=== PATIENT | female | born 1965 | race Caucasian/White ===

== ENCOUNTER → 2016-08-16 | Outpatient (CLI) | payer BC ==
--- NOTE | 2016-08-16 15:56 | XR ---
EXAMINATION TYPE: XR shoulder complete LT DATE OF EXAM: 08/16/2016 3:52 PM CLINICAL HISTORY: pain COMPARISON: NONE TECHNIQUE: Three views of the left shoulder are obtained. FINDINGS: There is no acute fracture/dislocation evident. The acromioclavicular and glenohumeral sophie int spaces appear within normal limits. The visualized ribs are intact and unremarkable. IMPRESSION: 1. There is no acute fracture or dislocation. ICD 10 NO FRACTURE, INITIAL EVALUATION
--- NOTE | 2016-08-16 15:56 | XR ---
EXAMINATION TYPE: XR elbow complete LT DATE OF EXAM: 08/16/2016 3:52 PM CLINICAL HISTORY: pain TECHNIQUE: Frontal, lateral and oblique images of the left elbow are obtained. COMPARISON: None. FINDINGS: There is no acute fracture/dislocation evident of the elbow. No abnormal fat pad signs ar e seen. The overlying soft tissue appears unremarkable. IMPRESSION: There is no acute fracture or dislocation of the elbow. ICD 10 NO FRACTURE, INITIAL EVALUATION
--- NOTE | 2016-08-16 15:57 | XR ---
EXAMINATION TYPE: XR wrist complete LT DATE OF EXAM: 08/16/2016 3:52 PM CLINICAL HISTORY: pain TECHNIQUE: Frontal, lateral and oblique images of the left wrist are obtained. COMPARISON: None. FINDINGS: There is no acute fracture/dislocation evident. The joint spaces appear within normal gale its. The overlying soft tissue appears unremarkable. IMPRESSION: There is no acute fracture or dislocation seen. ICD 10 NO FRACTURE, INITIAL EVALUATION
--- NOTE | 2016-08-16 15:57 | XR ---
EXAMINATION TYPE: XR hand complete LT DATE OF EXAM: 08/16/2016 3:42 PM CLINICAL HISTORY: pain TECHNIQUE: Frontal, lateral and oblique images of the left hand are obtained. COMPARISON: None. FINDINGS: There is no acute fracture/dislocation evident. The joint spaces appear within normal limi ts. The overlying soft tissue appears unremarkable. IMPRESSION: There is no acute fracture or dislocation. ICD 10 NO FRACTURE, INITIAL EVALUATION
--- NOTE | 2016-08-16 16:00 | XR ---
EXAMINATION TYPE: XR forearm LT DATE OF EXAM: 08/16/2016 3:52 PM CLINICAL HISTORY: pain TECHNIQUE: Frontal and lateral images of the left forearm are obtained. COMPARISON: None. FINDINGS: There is no acute fracture/dislocation evident. The joint spaces appear within normal limi ts. The overlying soft tissue appears unremarkable. IMPRESSION: There is no acute fracture or dislocation. ICD 10 NO FRACTURE, INITIAL EVALUATION
== END | disposition home or self-care (01) ==
LOC: RADXRMAIN 14:35
PROVIDERS: ATTEND Nurse Practitioner Family
DX: M79.642 Pain in left hand (principal); M25.532 Pain in left wrist; M25.512 Pain in left shoulder

== ENCOUNTER → 2017-04-04 | Outpatient (CLI) | payer BC ==
--- NOTE | 2017-04-04 09:35 | ECHOF ---
Referral Reason:R07.89 Chest pain MEASUREMENTS -------- HEIGHT: 170.2 cm WEIGHT: 86.6 kg BP: RVIDd: 3.2 cm (< 3.3) IVSd: 0.9 cm (0.6 - 1.1) LVIDd: 3.9 cm (3.9 - 5.3) LVPWd: 0.9 cm (0.6 - 1.1) IVSs: 1.2 cm LVIDs: 3.4 cm LVPWs: 1.2 cm LAESV Index (A-L): 26.06 ml/m Ao Diam: 3.2 cm (2.0 - 3.7) AV Cusp: 1.5 cm (1.5 - 2.6) LA Diam: 3.8 cm (2.7 - 3.8) MV EXCURSION: 23.254 mm (> 18.000) MV EF SLOPE: 107 mm/s (70 - 150) EPSS: 0.9 cm MV E Darrick: 0.59 m/s MV DecT: 269 ms MV A Darrick: 0.63 m/s MV E/A Ratio: 0.93 RAP: 5.00 mmHg RVSP: 22.95 mmHg FINDINGS -------- There is mild concentric left ventricular hypertrophy. Overall left ventricular systolic function is normal with, an EF between 55 - 60 %. The right ventricle is normal in size. Normal LA size by volume 22+/-6 ml/m2. The right atrial size is normal. The aortic valve is trileaflet, and appears structurally normal. No aortic stenosis or regurgitation. Mild mitral regurgitation is present. Mild tricuspid regurgitation present. There is no evidence of pulmonary hypertension. The right ventricular systolic pressure, as measured by Doppler, is 22.95mmHg. There is no pulmonic regurgitation present. The aortic root size is normal. There is no pericardial effusion. CONCLUSIONS -------- 1. There is mild concentric left ventricular hypertrophy. 2. Overall left ventricular systolic function is normal with, an EF between 55 - 60 %. 3. The aortic valve is trileaflet, and appears structurally normal. No aortic stenosis or regurgitation. 4. Mild mitral regurgitation is present. 5. There is no evidence of pulmonary hypertension. 6. The right ventricular systolic pressure, as measured by Doppler, is 22.95mmHg. 7. There is no pulmonic regurgitation present. 8. The aortic root size is normal. 9. There is no pericardial effusion. MORNING NEWS ANCHOR: Nohemy Michael RDCS
--- NOTE | 2017-04-04 11:02 | NM ---
EXAMINATION TYPE: NM stress cardiolite complete DATE OF EXAM: 04/04/2017 COMPARISON: NONE HISTORY: Chest pain TECHNIQUE: After the intravenous administration of 10.92 mCi Tc 99m Sestamibi - Rest images obtained 57 minutes post injection. The patient exercised using a QUEENIE protocol and 1 minute prior to peak exercise was injected with 27 mCi Tc 99m Sestamibi - Stress images obtained 30 minutes post injectio n. FINDINGS: Targeted heart rate was achieved during performance of the study. Review of stress and rest SPECT shital ges demonstrates no distinct perfusion abnormality. Gated analysis shows normal wall motion with an estimated left ventricular ejection fraction of 63 %. IMPRESSION: No scintigraphic evidence for reversible ischemia, consider echocardiographic correlation for ejectio n fraction
--- NOTE | 2017-04-05 12:01 | EST ---
DATE OF SERVICE: 04/04/2017 TYPE OF REPORT: Stress Cardiolite INDICATION: Chest pain. BASELINE HEART RATE: 65 BASELINE BLOOD PRESSURE: 108/76 MAXIMUM HEART RATE: 143 MAXIMUM BLOOD PRESSURE: 166/72 85% MPHR: 100% MPHR: METS: 7.3 MAX STAGE REACHED: IV TOTAL EXERCISE TIME: 11:05 EKG revealed normal sinus rhythm without significant ST-T changes. Patient walked on standard Diego protocol for 11 minutes 5 seconds, achieved a maximal heart rate of 13 beats per minute which is 85% of predicted maximal. She developed fatigue and shortness of breath, but did not have any angina or arrhythmia. EKG did not reveal any ST segment changes to indicate ischemia. By EKG criteria, this is a negative stress test with excellent exercise capacity. The nuclear scan results, which are more pertinent, will be reported by the radiologist. FINAL IMPRESSION: 1. Excellent exercise capacity with a negative stress test by EKG criteria. 2. The nuclear scan results, which are more pertinent, will be reported by the radiologist. HARSHIL
== END ==
LOC: RADNMMAIN 07:51
PROVIDERS: ATTEND Family Medicine
DX: I34.0 Nonrheumatic mitral (valve) insufficiency (principal)
CPT/HCPCS: 93017; 93306; 78452; A9500

== ENCOUNTER → 2017-04-27 | Outpatient (CLI) | payer BC ==
--- NOTE | 2017-04-27 11:37 | US ---
EXAMINATION TYPE: US thyroid st tissue head/neck DATE OF EXAM: 04/27/2017 COMPARISON: 12/02/2013 CLINICAL HISTORY: 51-year-old female with Goiter E04.9. TECHNIQUE: Multiple sonographic images of the thyroid gland are obtained. FINDINGS: GLAND SIZE: Right Lobe: 5.6 x 1.7 x 1.8 cm Overall Parenchyma: homogenous Left Lobe: 4.4 x 1.2 x 0.9 cm Overall Parenchyma: homogeneous Isthmus Thickness: 0.2 cm NODULES RIGHT: # of nodules measured on right: 1 1. 0.3 X 0.3 x 0.1 cm hypoechoic solid nodule at the mid pole with well-defined margins. This nodu le is wider than tall and shows no intranodular vascularity. This was not seen previously. LEFT: # of nodules measured on left: 0 ISTHMUS: # of nodules measured in the isthmus: 0 Bilateral neck scanned; normal appearing lymph nodes imaged at bilateral upper neck. IMPRESSION: Asymmetrically enlarged right lobe with a tiny nonspecific 3 mm solid nodule.
== END | disposition home or self-care (01) ==
LOC: RADUSWWP 08:54
PROVIDERS: ATTEND Family Medicine
DX: E04.9 Nontoxic goiter, unspecified (principal); Z88.1 Allergy status to other antibiotic agents; Z88.2 Allergy status to sulfonamides
CPT/HCPCS: 76536

== ENCOUNTER → 2017-09-21 | Outpatient (CLI) | payer BC ==
[2017-09-21 14:48] LABS: Basophils # (A) 0.1 k/uL (0-0.2); Basophils % (A) 1 %; Eosinophils # (A) 0.6 k/uL (0-0.7); Eosinophils % (A) 9 %; HCT 43.2 % (34.0-46.0); HGB 13.2 gm/dL (11.4-16.0); Lymphocytes # (A) 2.4 k/uL (1.0-4.8); Lymphocytes % (A) 33 %; MCH 28.6 pg (25.0-35.0); MCHC 30.5 g/dL (31.0-37.0); MCV 93.7 fL (80.0-100.0); Monocytes # (A) 0.6 k/uL (0-1.0); Monocytes % (A) 8 %; Neutrophils # (A) 3.4 k/uL (1.3-7.7); Neutrophils % (A) 47 %; Platelet Count 293 k/uL (150-450); RBC 4.61 m/uL (3.80-5.40); RDW 13.4 % (11.5-15.5); WBC 7.3 k/uL (3.8-10.6)
[2017-09-21 14:51] LABS: Potassium 3.8 mmol/L (3.5-5.1)
== END | disposition home or self-care (01) ==
LOC: LABPAT 14:21
PROVIDERS: ATTEND Orthopaedic Surgery
DX: M65.4 Radial styloid tenosynovitis [de Quervain] (principal)
CPT/HCPCS: 36415; 80051; 85025

== ENCOUNTER 2017-10-12 10:30 | Day surgery (SDC) | payer BC ==
[2017-10-09 12:00] VITALS: BMI 29.0
--- NOTE | 2017-10-11 20:26 | HP ---
HISTORY AND PHYSICAL DATE OF SURGERY: 10/12/2017 Iram Hardy is a 52-year-old patient seen with symptomatic right wrist de Quervain tendinitis. Treatment options were discussed. She elected to proceed with release, first dorsal compartment, right wrist. Consent regarding procedure was obtained. PAST MEDICAL HISTORY: Asthma. PAST SURGICAL HISTORY: 1. Appendectomy. 2. Cholecystectomy. 3. Hysterectomy. DAILY MEDICATIONS: Ibuprofen. ALLERGIES: 1. KEFLEX. 2. SULFA. SOCIAL HISTORY: Patient denies tobacco use. PHYSICAL EVALUATION OF THE RIGHT WRIST: She is tender along the first dorsal compartment. She has a positive Padma's test. She has good perfusion and sensation distally. Carpal Tinel's and carpal compression are both negative. RADIOGRAPHS: Radiographs of the right wrist reveal mild osteoarthritis. IMPRESSION: Right wrist de Quervain tendinitis. PLAN: Release first dorsal compartment, right wrist. MMODL / IJN: [id number] /
[~2017-10-12 10:30] MED LIST: CLINDAMYCIN 600 MG in DEXTROSE 5% IN WATER 50 ML IVPB ONE; DEXAMETHASONE SOD PHOSPHATE 10 MG/ML 1 ML VIAL IV ONE; MORPHINE SULFATE 4 MG/ML SYRINGE IV PRN; ONDANSETRON 4 MG/2 ML VIAL IVP ONE
[2017-10-12 11:28] VITALS: RESP 16; TEMP 97.9
[2017-10-12] MEDS ORDERED: LIDOCAINE 1% 20 ML VIAL (10MG/ML) FOR IV START INTRADERMA ONE (11:33)
[2017-10-12] MEDS: LACTATED RINGERS 1,000 ML IV SCH ×2 (11:33→12:22)
[2017-10-12 11:41] LABS: Glucose,Whole Blood 84 mg/dL (75-99)
[2017-10-12] MEDS ORDERED: MIDAZOLAM 2 MG/2 ML VIAL ONE (12:32)
[2017-10-12] MEDS ORDERED: PROPOFOL 10 MG/ML 20 ML VIAL IV ONE (12:32)
[2017-10-12] MEDS ORDERED: LIDOCAINE 1% INJ 10MG/ML (20 ML MDV) ONE (12:32)
[2017-10-12] MEDS ORDERED: fentaNYL (PF) 50 MCG/ML 2 ML AMP ONE (12:32)
[2017-10-12] MEDS ORDERED: BUPIVACAINE (PF) 0.25% 30 ML VIAL SQ ONE ×2 (12:44)
--- NOTE | 2017-10-12 13:03 | P.OP ---
Date of Procedure: 10/12/17 Preoperative Diagnosis: Right wrist De Quervain's tendinitis Postoperative Diagnosis: Same Procedure(s) Performed: Release first dorsal compartment right wrist Anesthesia: MAC, local Surgeon: Raymond Carrera Estimated Blood Loss (ml): 0 Pathology: none sent Condition: stable Disposition: PACU Indications for Procedure: 52-year-old patient seen with symptomatic right wrist De Quervain's tendinitis. After treatment options were discussed she elected to proceed with release first dorsal compartment right wrist. Operative Findings: See description of procedure Description of Procedure: Patient was taken to the operative suite. The patient received preoperative IV antibiotics. The patient underwent IV sedation by the department of anesthesia. A well-padded tourniquet was placed right upper extremity approximately. The right upper extremity was prepped and draped in the normal sterile orthopedic fashion. The proposed incision site was infiltrated with 8 mL quarter percent plain Marcaine. When sufficient local analgesia was noted the extremity was elevated and tourniquet insufflated to 250. A male [place] incision measuring approximately 2 cm over the area first was compartment. We dissected down to the first dorsal compartment making sure protect neurovascular structures. The first was compartment was identified and a release was performed. We complete release of the first was compartment noted with good excursion of the tendons and no evidence of impingement at this point. There was good hemostasis. The skin margins were repaired with nylon suture. I applied sterile dressings followed by loose web bone Lucien bandage. The tourniquet was released with immediate capillary refill of all digits noted. The patient was then transferred to recovery in stable condition having tolerated procedure well.
[2017-10-12] MEDS ORDERED: HYDROcodone/APAP 5-325MG 1 EACH TAB PO ONE (13:45)
[2017-10-12 13:57] VITALS: BP 110/69; PULSE 65
== END 2017-10-12 14:33 | disposition home or self-care (01) ==
LOC: OR 10:30
PROVIDERS: ATTEND Orthopaedic Surgery
DX: M65.4 Radial styloid tenosynovitis [de Quervain] (principal); J45.909 Unspecified asthma, uncomplicated; Z88.1 Allergy status to other antibiotic agents; Z88.2 Allergy status to sulfonamides; Z79.1 Long term (current) use of non-steroidal anti-inflammatories (NSAID); Z90.49 Acquired absence of other specified parts of digestive tract; Z90.710 Acquired absence of both cervix and uterus; Z87.891 Personal history of nicotine dependence; Z79.891 Long term (current) use of opiate analgesic; Z79.899 Other long term (current) drug therapy
CPT/HCPCS: 25000; J2250; J1100; J2405; J2001; J3010; J2704

== ENCOUNTER 2018-03-13 18:02 | Emergency (ER) | payer BC ==
--- NOTE | 2018-03-13 18:14 | ED ---
General Adult HPI - General Chief complaint: Chest Pain Stated complaint: Chest pain Time Seen by Provider: 03/13/18 18:11 Source: patient, RN notes reviewed, old records reviewed Mode of arrival: ambulatory Limitations: no limitations - History of Present Illness Initial comments: This is a 52-year-old female the ER for evasive chest pain. Left-sided chest pain heaviness and tightness. Anterior chest. Patient has history of high cholesterol. No significant medical history of heart disease. No recent travel history no sick contacts. Patient had similar symptoms a while back he was given a stress test. She denies fever no cough or congestion. Currently without shortness of breath, occasional diaphoresis - Related Data Home Medications Medication Instructions Recorded Confirmed Ibuprofen [Motrin] 800 mg PO DAILY PRN 10/09/17 03/13/18 Aspirin EC [Ecotrin Low Dose] 81 mg PO DAILY 03/13/18 03/13/18 Atorvastatin [Lipitor] 10 mg PO DAILY 03/13/18 03/13/18 FLUoxetine HCL [PROzac] 10 mg PO DAILY 03/13/18 03/13/18 Fexofenadine HCl [Emily Allergy] 60 mg PO DAILY 03/13/18 03/13/18 Montelukast Chew [Singulair Chew] 4 mg PO DAILY 03/13/18 03/13/18 Allergies Allergy/AdvReac Type Severity Reaction Status Date / Time cephalexin monohydrate AdvReac Swelling Verified 03/13/18 18:26 [From Keflex] codeine AdvReac Itching Verified 03/13/18 18:26 erythromycin base AdvReac Swelling Verified 03/13/18 18:26 [Erythromycin Base] Sulfa (Sulfonamide AdvReac Swelling Verified 03/13/18 18:26 Antibiotics) Review of Systems ROS Statement: Those systems with pertinent positive or pertinent negative responses have been documented in the HPI. ROS Other: All systems not noted in ROS Statement are negative. Past Medical History Past Medical History: Hyperlipidemia Additional Past Medical History / Comment(s): enlarged L ventricle History of Any Multi-Drug Resistant Organisms: None Reported Past Surgical History: Adenoidectomy, Cholecystectomy, Hysterectomy Past Psychological History: Anxiety, Depression Smoking Status: Former smoker Past Alcohol Use History: None Reported Past Drug Use History: None Reported General Exam Limitations: no limitations General appearance: alert, in no apparent distress, anxious Head exam: Present: atraumatic, normocephalic, normal inspection Eye exam: Present: normal appearance, PERRL, EOMI. Absent: scleral icterus, conjunctival injection, periorbital swelling ENT exam: Present: normal exam, mucous membranes moist Neck exam: Present: normal inspection. Absent: tenderness, meningismus, lymphadenopathy Respiratory exam: Present: normal lung sounds bilaterally. Absent: respiratory distress, wheezes, rales, rhonchi, stridor Cardiovascular Exam: Present: regular rate, normal rhythm, normal heart sounds. Absent: systolic murmur, diastolic murmur, rubs, gallop, clicks GI/Abdominal exam: Present: soft, normal bowel sounds. Absent: distended, tenderness, guarding, rebound, rigid Extremities exam: Present: normal inspection, full ROM, normal capillary refill. Absent: tenderness, pedal edema, joint swelling, calf tenderness Back exam: Present: normal inspection Neurological exam: Present: alert, oriented X3, CN II-XII intact Psychiatric exam: Present: normal affect, normal mood Skin exam: Present: warm, dry, intact, normal color. Absent: rash Course Vital Signs 03/13/18 03/13/18 03/13/18 18:05 18:33 18:45 Temperature 98.2 F Pulse Rate 62 65 Pulse Rate [ 66 [employer] Supervisor ] Respiratory 16 18 Rate Blood Pressure 150/82 156/95 O2 Sat by Pulse 98 99 Oximetry 03/13/18 19:05 Temperature 98.7 F Pulse Rate 64 Pulse Rate [ [employer] Supervisor ] Respiratory 18 Rate Blood Pressure 130/72 O2 Sat by Pulse 98 Oximetry - Reevaluation(s) Reevaluation #1: 03/13/18 19:59 Medical record is reviewed including prior stress test Reevaluation #2: 03/13/18 19:59 Patient is now without chest pain currently EKG Findings - EKG Comments: EKG Findings:: EKG shows sinus rhythm rate of 62, FL 142, QRS 82, QTc 456 Medical Decision Making - Medical Decision Making 52 female the ER with low cardiac risk coming in for chest tightness. EKG and troponin are negative. Patient has negative stress test in the past year. Patient will follow-up with primary care doctor. This week with Dr. Mann who is very aware of patient will see her in the office - Lab Data Result diagrams: 03/13/18 18:56 03/13/18 18:56 Lab Results 03/13/18 03/13/18 03/13/18 Range/Units 18:56 18:56 18:56 WBC 7.2 (3.8-10.6) k/uL RBC 5.05 (3.80-5.40) m/uL Hgb 14.1 (11.4-16.0) gm/dL Hct 43.2 (34.0-46.0) % MCV 85.5 (80.0-100.0) fL MCH 27.9 (25.0-35.0) pg MCHC 32.6 (31.0-37.0) g/dL RDW 13.6 (11.5-15.5) % Plt Count 314 (150-450) k/uL Neutrophils % 53 % Lymphocytes % 32 % Monocytes % 6 % Eosinophils % 5 % Basophils % 1 % Neutrophils # 3.8 (1.3-7.7) k/uL Lymphocytes # 2.3 (1.0-4.8) k/uL Monocytes # 0.4 (0-1.0) k/uL Eosinophils # 0.4 (0-0.7) k/uL Basophils # 0.1 (0-0.2) k/uL PT (9.0-12.0) sec INR (<1.2) APTT (22.0-30.0) sec Sodium 140 (137-145) mmol/L Potassium 4.1 (3.5-5.1) mmol/L Chloride 110 H (98-107) mmol/L Carbon Dioxide 22 (22-30) mmol/L Anion Gap 8 mmol/L BUN 12 (7-17) mg/dL Creatinine 0.70 (0.52-1.04) mg/dL Est GFR (CKD-EPI)AfAm >90 (>60 ml/min/1.73 sqM) Est GFR (CKD-EPI)NonAf >90 (>60 ml/min/1.73 sqM) Glucose 101 H (74-99) mg/dL Calcium 9.9 (8.4-10.2) mg/dL Magnesium 2.0 (1.6-2.3) mg/dL Total Bilirubin 0.3 (0.2-1.3) mg/dL AST 22 (14-36) U/L ALT 28 (9-52) U/L Alkaline Phosphatase 70 (38-126) U/L Total Creatine Kinase 146 H (30-135) U/L CK-MB (CK-2) 1.6 (0.0-2.4) ng/mL CK-MB (CK-2) Rel Index 1.1 Troponin I <0.012 (0.000-0.034) ng/mL Total Protein 6.8 (6.3-8.2) g/dL Albumin 3.8 (3.5-5.0) g/dL Lipase 177 (23-300) U/L 03/13/18 Range/Units 18:56 WBC (3.8-10.6) k/uL RBC (3.80-5.40) m/uL Hgb (11.4-16.0) gm/dL Hct (34.0-46.0) % MCV (80.0-100.0) fL MCH (25.0-35.0) pg MCHC (31.0-37.0) g/dL RDW (11.5-15.5) % Plt Count (150-450) k/uL Neutrophils % % Lymphocytes % % Monocytes % % Eosinophils % % Basophils % % Neutrophils # (1.3-7.7) k/uL Lymphocytes # (1.0-4.8) k/uL Monocytes # (0-1.0) k/uL Eosinophils # (0-0.7) k/uL Basophils # (0-0.2) k/uL PT 9.4 (9.0-12.0) sec INR 0.9 (<1.2) APTT 22.7 (22.0-30.0) sec Sodium (137-145) mmol/L Potassium (3.5-5.1) mmol/L Chloride (98-107) mmol/L Carbon Dioxide (22-30) mmol/L Anion Gap mmol/L BUN (7-17) mg/dL Creatinine (0.52-1.04) mg/dL Est GFR (CKD-EPI)AfAm (>60 ml/min/1.73 sqM) Est GFR (CKD-EPI)NonAf (>60 ml/min/1.73 sqM) Glucose (74-99) mg/dL Calcium (8.4-10.2) mg/dL Magnesium (1.6-2.3) mg/dL Total Bilirubin (0.2-1.3) mg/dL AST (14-36) U/L ALT (9-52) U/L Alkaline Phosphatase (38-126) U/L Total Creatine Kinase (30-135) U/L CK-MB (CK-2) (0.0-2.4) ng/mL CK-MB (CK-2) Rel Index Troponin I (0.000-0.034) ng/mL Total Protein (6.3-8.2) g/dL Albumin (3.5-5.0) g/dL Lipase (23-300) U/L - Radiology Data Radiology results: report reviewed (Chest x-rays negative for acute disease), image reviewed Disposition Clinical Impression: Chest pain, Atypical chest pain Disposition: HOME SELF-CARE Condition: Good Instructions: Chest Pain (ED) Is patient prescribed a controlled substance at d/c from ED?: No Referrals: Jose Mann MD [Primary Care Provider] - 1-2 days
[2018-03-13 18:46] VITALS: RESP 18
[2018-03-13 19:04] LABS: Basophils # (A) 0.1 k/uL (0-0.2); Basophils % (A) 1 %; Eosinophils # (A) 0.4 k/uL (0-0.7); Eosinophils % (A) 5 %; HCT 43.2 % (34.0-46.0); HGB 14.1 gm/dL (11.4-16.0); Lymphocytes # (A) 2.3 k/uL (1.0-4.8); Lymphocytes % (A) 32 %; MCH 27.9 pg (25.0-35.0); MCHC 32.6 g/dL (31.0-37.0); MCV 85.5 fL (80.0-100.0); Mean Platelet Volume 6.8; Monocytes # (A) 0.4 k/uL (0-1.0); Monocytes % (A) 6 %; Neutrophils # (A) 3.8 k/uL (1.3-7.7); Neutrophils % (A) 53 %; Platelet Count 314 k/uL (150-450); RBC 5.05 m/uL (3.80-5.40); RDW 13.6 % (11.5-15.5); WBC 7.2 k/uL (3.8-10.6)
[2018-03-13 19:14] LABS: ALT 28 U/L (9-52); AST 22 U/L (14-36); Albumin 3.8 g/dL (3.5-5.0); Alkaline Phosphatase 70 U/L (38-126); Anion Gap 8 mmol/L; Blood Urea Nitrogen 12 mg/dL (7-17); Calcium 9.9 mg/dL (8.4-10.2); Carbon Dioxide 22 mmol/L (22-30); Chloride 110 mmol/L (98-107); Glucose 101 mg/dL (74-99); Lipase 177 U/L (23-300); Potassium 4.1 mmol/L (3.5-5.1); Sodium 140 mmol/L (137-145); Total Bilirubin 0.3 mg/dL (0.2-1.3); Total Protein 6.8 g/dL (6.3-8.2)
[2018-03-13 19:17] LABS: INR 0.9 (<1.2); Partial Thromboplastin Time 22.7 sec (22.0-30.0); Prothrombin Time 9.4 sec (9.0-12.0)
--- NOTE | 2018-03-13 19:25 | XR ---
EXAMINATION TYPE: XR chest 2V DATE OF EXAM: 03/13/2018 COMPARISON: 09/27/2014 HISTORY: Chest tightness TECHNIQUE: Frontal and lateral views of the chest are obtained. FINDINGS: Heart and mediastinum are normal. Lungs are clear. Diaphragm is normal. Bony thorax is int act. IMPRESSION: Normal chest. No change.
[2018-03-13 19:28] LABS: Creatine Kinase 146 U/L (30-135)
[2018-03-13 19:39] LABS: Creatine Kinase MB 1.6 ng/mL (0.0-2.4); Troponin I <0.012 ng/mL (0.000-0.034)
[2018-03-13 21:11] VITALS: BP 136/81; PULSE 61
[2018-03-13 21:59] VITALS: TEMP 98.6
== END 2018-03-13 22:02 | disposition home or self-care (01) ==
LOC: EC 18:02
DX: R07.89 Other chest pain (principal); E78.5 Hyperlipidemia, unspecified; F41.9 Anxiety disorder, unspecified; F32.9 Major depressive disorder, single episode, unspecified; Z87.891 Personal history of nicotine dependence; Z79.82 Long term (current) use of aspirin; Z79.899 Other long term (current) drug therapy; Z88.1 Allergy status to other antibiotic agents; Z88.5 Allergy status to narcotic agent; Z88.2 Allergy status to sulfonamides
CPT/HCPCS: 36415; 71046; 80053; 82550; 82553; 83690; 83735; 84484; 85025; 85610; 85730; 93005; 99285

== ENCOUNTER → 2018-06-19 | Outpatient (CLI) | payer BC | LOC: LABPAT 12:08 | PROVIDERS: ATTEND Surgery | DX: Z01.812 Encounter for preprocedural laboratory examination (principal); K21.9 Gastro-esophageal reflux disease without esophagitis | CPT/HCPCS: 86850; 86900; 86901 ==

== ENCOUNTER 2018-06-27 06:43 | Observation (INO) | payer BC ==
[2018-06-20 12:59] VITALS: BMI 31.0
[~2018-06-27 06:43] MED LIST changes: -CLINDAMYCIN 600 MG in DEXTROSE 5% IN WATER 50 ML IVPB ONE; +CLINDAMYCIN 900 MG in DEXTROSE 5% IN WATER 50 ML IVPB ONE; +GENTAMICIN 400 MG in SODIUM CHLORIDE 0.9% 100 ML IVPB ONE; +HEPARIN SODIUM,PORCINE 5,000 UNIT/ML 1 ML VIAL SQ ONE; +LACTATED RINGERS 1,000 ML IV SCH; +MIDAZOLAM 2 MG/2 ML VIAL IV PRN; -MORPHINE SULFATE 4 MG/ML SYRINGE IV PRN; +SCOPOLAMINE 1.5MG/72HR PATCH TRANSDERM ONE; +fentaNYL (PF) 50 MCG/ML 2 ML AMP IV PRN
[2018-06-27] MEDS ORDERED: LIDOCAINE 1% 20 ML VIAL (10MG/ML) FOR IV START INTRADERMA ONE (07:19)
[2018-06-27] MEDS ORDERED: LIDOCAINE 1% INJ 10MG/ML (20 ML MDV) ONE (07:56)
[2018-06-27] MEDS ORDERED: PROPOFOL 10 MG/ML 20 ML VIAL IV ONE (07:56)
[2018-06-27] MEDS ORDERED: HYDROmorphone (PF) 1 MG/ML ONE (07:56)
[2018-06-27] MEDS ORDERED: KETOROLAC 30 MG/ML 1 ML VIAL ONE (07:56)
[2018-06-27] MEDS ORDERED: MIDAZOLAM 2 MG/2 ML VIAL ONE (07:56)
[2018-06-27] MEDS ORDERED: ePHEDrine SULFATE/0.9% NACL/PF 50 MG/5 ML SYRINGE IV ONE (07:56)
[2018-06-27] MEDS ORDERED: GLYCOPYRROLATE 0.2 MG/ML 2 ML VIAL ONE (07:56)
[2018-06-27] MEDS ORDERED: ROCURONIUM BROMIDE 10 MG/ML 10 ML VIAL IV ONE (07:56)
[2018-06-27] MEDS ORDERED: NEOSTIGMINE 1 MG/ML 10 ML VIAL ONE (07:56)
[2018-06-27] MEDS ORDERED: fentaNYL (PF) 50 MCG/ML 2 ML AMP ONE (07:56)
--- NOTE | 2018-06-27 07:57 | P.GSHP ---
History of Present Illness H&P Date: 06/27/18 Chief Complaint: GERD Is a 53-year-old female who presents today for laparoscopic Claudio fundal plication.The patient has had long-standing problems with reflux esophagitis. The patient underwent recent EGD is found have evidence of esophagitis. Patient has been well informed on the procedure of laparoscopic Claudio fundoplication. The patient is aware the risk of the conversion to the open procedure, risk of injury to the stomach, liver and spleen. The patient is also a risk of recurrent GERD and dysphagia symptoms. The patient understands there is a postoperative diet of full liquids for 2 weeks after surgery. Past Medical History Past Medical History: GERD/Reflux, Hyperlipidemia Additional Past Medical History / Comment(s): enlarged L ventricle History of Any Multi-Drug Resistant Organisms: None Reported Past Surgical History: Appendectomy, Cholecystectomy, Hysterectomy Past Anesthesia/Blood Transfusion Reactions: Motion Sickness Smoking Status: Former smoker - Past Family History Mother Family Medical History: No Reported History Medications and Allergies Home Medications Medication Instructions Recorded Confirmed Type Atorvastatin [Lipitor] 10 mg PO HS 03/13/18 06/27/18 History FLUoxetine HCL [PROzac] 10 mg PO HS 03/13/18 06/27/18 History Montelukast Chew [Singulair Chew] 10 mg PO HS 03/13/18 06/27/18 History Omeprazole 20 mg PO HS 06/06/18 06/27/18 History Allergies Allergy/AdvReac Type Severity Reaction Status Date / Time cephalexin monohydrate AdvReac Swelling Verified 06/27/18 07:02 [From Keflex] codeine AdvReac Itching Verified 06/27/18 07:02 erythromycin base AdvReac Swelling Verified 06/27/18 07:02 [Erythromycin Base] Sulfa (Sulfonamide AdvReac Swelling Verified 06/27/18 07:02 Antibiotics) Surgical - Exam Vital Signs Temp Pulse Resp BP Pulse Ox 97.7 F 70 16 118/67 95 06/27/18 07:09 06/27/18 07:09 06/27/18 07:09 06/27/18 07:09 06/27/18 07:09 - General well developed, well nourished, no distress - Eyes PERRL - ENT normal pinna, normal nares - Neck no masses - Respiratory normal expansion - Cardiovascular Rhythm: regular - Abdomen Abdomen: soft, non tender Assessment and Plan Assessment: GERD. We'll perform laparoscopic Claudio fundal plication.
[2018-06-27] MEDS ORDERED: BUPIVACAIN-EPI 0.25%-1:200,000 30 ML VIAL SQ ONE (08:37)
[2018-06-27] MEDS ORDERED: HYDROmorphone 0.5 MG/0.5 ML SYRINGE IVP ONE ×2 (09:46→09:55)
[2018-06-27] MEDS ORDERED: ONDANSETRON 4 MG/2 ML VIAL IVP PRN (09:47)
--- NOTE | 2018-06-27 09:51 | P.OP ---
Date of Procedure: 06/27/18 Preoperative Diagnosis: GERD Postoperative Diagnosis: Large hiatal hernia Procedure(s) Performed: Laparoscopic Claudio fundal plication Anesthesia: TEMITOPE Surgeon: Dickson Aparicio Estimated Blood Loss (ml): 5 Pathology: none sent Condition: stable Disposition: PACU Description of Procedure: Harmonic Claudio
[2018-06-27] MEDS: HYDROmorphone 1 MG/ML 1 ML SYRINGE IVP PRN ×2 (10:46→17:52)
[2018-06-27] MEDS: D5-0.45% NACL WITH KCL 20MEQ/L 1,000 ML IV SCH ×2 (10:48→18:27)
[2018-06-27] MEDS: METOCLOPRAMIDE 5 MG/ML 2 ML VIAL IVP SCH ×2 (12:27→17:53)
[2018-06-27] MEDS ORDERED: diphenhydrAMINE 50 MG/ML 1 ML VIAL IVP STA (12:31)
--- NOTE | 2018-06-27 16:44 | FL ---
SINGLE CONTRAST ESOPHAGRAM: CLINICAL HISTORY: 53-year-old female status post Claudio fundoplication, rule out leak/obstruction TECHNIQUE: Single contrast exam performed with 50 ml Isovue 370 contrast. However, only 17 mL were i ngested. Total fluoroscopy time: 1 minute 50 seconds. Total images 18. FINDINGS: The patient swallowed oral contrast without difficulty or delay. Esophageal peristalsis and motility are within normal limits. There is initial passage of some of the contrast into the stomach. Howeve r, there is prolonged pooling of the remainder of the contrast with ensuing tertiary peristaltic cont ractions causing recurrent bouts of intraesophageal reflux. An additional swallow yielded progressive pooling in the lower esophagus with only a small amount of additional contrast transitioning into th e stomach. There is a small focus of contrast accumulation projecting over the gastric body which needs to be re assessed at follow-up to exclude a leak. Trace postsurgical free air on right IMPRESSION: 1. Suboptimal exam as the patient ingested only 17 mL of oral contrast. Exam was prematurely terminat ed due to the presence of a moderate obstruction. 2. Small focus of accumulating contrast projecting over the gastric body could represent contrast lay ering dependently in a different part of the stomach. The exam needs to be repeated tomorrow. This ca n exclude both persistent obstruction and leak. 3. The patient began throwing up after the exam. 4. Trace post surgical free air on the right.
[2018-06-27] MEDS: FAMOTIDINE 20 MG/2 ML VIAL IV SCH (21:02)
[2018-06-28] MEDS: METOCLOPRAMIDE 5 MG/ML 2 ML VIAL IVP SCH ×3 (00:17→12:22)
[2018-06-28] MEDS: HYDROmorphone 1 MG/ML 1 ML SYRINGE IVP PRN (00:22)
[2018-06-28] MEDS: D5-0.45% NACL WITH KCL 20MEQ/L 1,000 ML IV SCH ×2 (02:52→10:11)
--- NOTE | 2018-06-28 07:49 | CONS ---
CONSULTATION CHIEF COMPLAINT: A 53-year-old white female admitted to the hospital for Claudio procedure. She is status post postop day 1. She is having some chest pain and GERD type symptoms. She had to take a swallow eval. Her home medicines have been reordered. PHYSICAL EXAM: Vital signs are stable, afebrile. CARDIOVASCULAR: S1, S2. LUNGS: Clear. GI: Soft. HEMATOLOGY: Negative Homans. PSYCH: Fair mood and affect. ASSESSMENT: 1. Status post Claudio. 2. Gastroesophageal reflux disease. 3. Allergic rhinitis. 4. Depression. 5. Dyslipidemia. Continue current home medicines. The patient is stable from medical standpoint. MMODL / IJN: [id number] /
[2018-06-28 07:52] VITALS: RESP 16
[2018-06-28] MEDS: FAMOTIDINE 20 MG/2 ML VIAL IV SCH (08:17)
[2018-06-28] MEDS ORDERED: ENOXAPARIN 40 MG/0.4 ML SYRINGE SQ SCH (09:00)
[2018-06-28] MEDS ORDERED: ACETAMINOPHEN TAB 325 MG TAB PO PRN (10:21)
--- NOTE | 2018-06-28 11:28 | FL ---
EXAMINATION TYPE: FL esophagus cervic/pharynx DATE OF EXAM: 06/28/2018 CLINICAL HISTORY: Post Claudio fundoplication yesterday. COMPARISON 06/19/2018 TECHNIQUE: Targeted esophagram is performed to ounces of Isovue-370. A total of 50 to seconds of fluo roscopic time was utilized during procedure. 17 fluoroscopic images were saved. FINDINGS: The patient swallowed contrast without difficulty or delay. Esophageal peristalsis and mo tility is mildly delayed at the gastroesophageal junction. There is mild delay of contrast along the diaphragmatic hiatus into the stomach, there is no evidence of contrast extravasation to suggest leak . No persistent hiatal hernia is seen. Patient remains asymptomatic. IMPRESSION: No evidence of leak. Mild delay of contrast passage through the gastroesophageal junction likely from postoperative edema, improved from the prior, status post Kuldeep fundoplication surgery yesterday.
[2018-06-28 13:03] VITALS: BP 95/57; PULSE 63; TEMP 98
[2018-06-28] MEDS ORDERED: ATORVASTATIN 10 MG TAB PO SCH (21:00)
[2018-06-28] MEDS ORDERED: MONTELUKAST 5 MG CHEWABLE PO SCH (21:00)
[2018-06-28] MEDS ORDERED: PANTOPRAZOLE 40 MG TABLET PO SCH (21:00)
[2018-06-28] MEDS ORDERED: FLUoxetine HCL 10 MG CAP PO SCH (21:00)
--- NOTE | 2018-07-15 13:27 | P.OP ---
Date of Procedure: 06/27/18 Preoperative Diagnosis: GERD Postoperative Diagnosis: GERD Procedure(s) Performed: Laparoscopic Claudio fundoplication Anesthesia: TEMITOPE Surgeon: Dikcson Aparicio Estimated Blood Loss (ml): 5 Pathology: none sent Condition: stable Disposition: PACU Description of Procedure: Jose patient was placed on the operating table in the supine position. The patient received general anesthesia. And was placed in dorsal lithotomy position. The patient was prepped and draped in the usual sterile fashion. The skin incision sites were anesthetized with 1% local Xylocaine. The skin was incised in the left periumbilical area and then using a blade less 5 mm trocar under direct visualization panel cavity was entered. After adequate insufflation the laparoscope was then placed into the peritoneal cavity. Next a 5 mm trochars placed in the right epigastric position. Another 5 millimeter trocar the right lateral position. Another 5 millimeter trocar in the left lateral position a 5 mm trocar is placed in the left epigastric position. And then the initial 5 mm trocar was exchanged for a 10 mm trocar. The left lateral lobe liver was retracted. The hernia was seen. The crural defect was then dissected using the Harmonic scissors device. A 360 crural dissection was performed the esophagus stomach was reduced back into the peritoneal Cavity. The crural defect was then closed using 2-0 Ethibond suture. Next the fundus of the stomach was mobilized using the [place] scissors device. and then a 58-[place]uvian bougie dilator was placed oropharynx passed into the esophagus and stomach the fundal plication wrap was then performed by grasping the fundus posteriorly and bringing it around the esophagus and stomach fundoplication was then performed using 2-0 Ethibond suture. Care was taken that the fundal location rested over top of the intra-abdominal esophagus. There was no injury seen to the stomach or esophagus. The dilator was then withdrawn. The abdomen was irrigated there is no bleeding seen. The trochars were then withdrawn and then skin incision sites were closed using 3-0 Monocryl suture Steri-Strips are applied. Patient thought procedure well and sent to recovery room in stable condition.
--- NOTE | 2018-07-20 14:22 | P.DS ---
Providers Date of admission: 06/28/18 04:29 Expected date of discharge: 06/28/18 Attending physician: Dickson Aparicio Consults: 06/27/18 09:47 Consult Physician Routine Consulting Provider: Bro Cristina Reason/Comments: Management Do you want consulting provider notified?: Yes Primary care physician: Bro [facility] Course: This a 53-year-old female who underwent laparoscopic Claudio fundoplication. Patient did well postoperatively. Please see hospital chart for details. Procedures: Laparoscopic Claudio fundoplication Patient Condition at Discharge: Good Plan - Discharge Summary Discharge Rx Participant: No New Discharge Prescriptions: New Docusate [Colace] 100 mg PO BID #20 capsule HYDROcodone/APAP 7.5-325MG [[place] 7.5-325] 1 tab PO Q4H PRN 3 Days #18 tab PRN Reason: Pain No Action FLUoxetine HCL [PROzac] 10 mg PO HS Atorvastatin [Lipitor] 10 mg PO HS Omeprazole 20 mg PO HS Montelukast [Singulair] 10 mg PO HS Discharge Medication List Atorvastatin [Lipitor] 10 mg PO HS 03/13/18 [History] FLUoxetine HCL [PROzac] 10 mg PO HS 03/13/18 [History] Omeprazole 20 mg PO HS 06/06/18 [History] Docusate [Colace] 100 mg PO BID #20 capsule 06/28/18 [Rx] HYDROcodone/APAP 7.5-325MG [[place] 7.5-325] 1 tab PO Q4H PRN 3 Days #18 tab 06/28 [Rx] Montelukast [Singulair] 10 mg PO HS 06/28/18 [History] Follow up Appointment(s)/Referral(s): Dickson Aparicio MD [STAFF PHYSICIAN] - 07/12/18 2:00 pm Activity/Diet/Wound Care/Special Instructions: Continue full liquid diet for 2 weeks. Follow up with Dr. Aparicio in 2 weeks. appt has been made for you. NO lifting pushing or pulling over a gallon of milk or about 5 pounds. No tub baths or hot tubs or swimming pools until cleared by physician. Do not pick or pull at incision glue or sites they will fall off on their own. Call physician with any questions comments concerns, fever 101.1 or higher, excessive bleeding or smelly drainage from incision sites, pain not controlled by medications prescribed, not tolerating diet or fluids. Discharge Disposition: HOME SELF-CARE
== END 2018-06-28 13:25 | disposition home or self-care (01) ==
LOC: OR 06:43 → 6PED 09:44 → EDSTATUS 16:15 → OR 06-28 04:28 → 6PED 06-28 04:29
PROVIDERS: ADMIT Surgery; ATTEND Surgery
DX: K21.0 Gastro-esophageal reflux disease with esophagitis (principal); K44.9 Diaphragmatic hernia without obstruction or gangrene; J30.9 Allergic rhinitis, unspecified; J45.998 Other asthma; E78.5 Hyperlipidemia, unspecified; F32.9 Major depressive disorder, single episode, unspecified; Z79.899 Other long term (current) drug therapy; Z88.1 Allergy status to other antibiotic agents; Z88.2 Allergy status to sulfonamides; Z88.5 Allergy status to narcotic agent; Z90.710 Acquired absence of both cervix and uterus; Z90.49 Acquired absence of other specified parts of digestive tract; Z87.891 Personal history of nicotine dependence
CPT/HCPCS: 43280; 74210 ×2; G0378; J2250; J1200; J1644; J1100; J2710; J2765 ×2; J2405; J2001; J1650; J3010; J1885; J1580; J1170 ×3; J2704; Q9967 ×2; 86850; 86900; 86901

== ENCOUNTER 2018-11-07 14:34 | Observation (INO) | payer BC ==
[2018-11-07] MEDS ORDERED: ONDANSETRON 4 MG/2 ML VIAL IVP STA (15:12)
[2018-11-07] MEDS ORDERED: SODIUM CHLORIDE 0.9% 1,000 ML IV STA (15:12)
--- NOTE | 2018-11-07 15:41 | ED ---
General Adult HPI - General Chief complaint: Nausea/Vomiting/Diarrhea Stated complaint: chest pain Time Seen by Provider: 11/07/18 15:12 Source: patient, EMS, RN notes reviewed Mode of arrival: EMS Limitations: no limitations - History of Present Illness Initial comments: 53-year-old female presents emergency Department with chief complaint of nausea vomiting diarrhea, chest pain. Patient states since Monday that she's he has been very sick with GI illness. Patient states that she's been dependent on Pepto-Bismol. Patient states she blacked out on Monday. Patient states that today she went to work and states that she started feeling very dizzy and lightheaded. Patient that she also started developing chest discomfort. Patient states that the pain was centralized. She was given nitro by EMS which alleviated her symptoms. Patient denies any fever or chills. Patient denies any current dysuria hematuria. Patient states that her diarrhea is loose and watery. Patient denies any hematemesis or coffee-ground emesis. Patient has no prior [place] but doesn't that she has a history of hyperlipidemia and enlarged left ventricle. - Related Data Home Medications Medication Instructions Recorded Confirmed Atorvastatin [Lipitor] 10 mg PO HS 03/13/18 11/07/18 FLUoxetine HCL [PROzac] 10 mg PO HS 03/13/18 11/07/18 Allergies Allergy/AdvReac Type Severity Reaction Status Date / Time cephalexin monohydrate AdvReac Swelling Verified 11/07/18 16:25 [From Keflex] codeine AdvReac Itching Verified 11/07/18 16:25 erythromycin base AdvReac Swelling Verified 11/07/18 16:25 [Erythromycin Base] Sulfa (Sulfonamide AdvReac Swelling Verified 11/07/18 16:25 Antibiotics) Review of Systems ROS Statement: Those systems with pertinent positive or pertinent negative responses have been documented in the HPI. ROS Other: All systems not noted in ROS Statement are negative. Past Medical History Past Medical History: GERD/Reflux, Hyperlipidemia, Rheumatoid Arthritis (RA) Additional Past Medical History / Comment(s): enlarged L ventricle per patient History of Any Multi-Drug Resistant Organisms: None Reported Past Surgical History: Appendectomy, Cholecystectomy, Hysterectomy Additional Past Surgical History / Comment(s): Claudio Fundoplication Past Anesthesia/Blood Transfusion Reactions: Motion Sickness Past Psychological History: Depression Smoking Status: Former smoker Past Alcohol Use History: None Reported Past Drug Use History: None Reported - Past Family History Mother Family Medical History: No Reported History General Exam Limitations: no limitations General appearance: alert, in no apparent distress Head exam: Present: atraumatic, normocephalic, normal inspection Eye exam: Present: normal appearance, PERRL, EOMI. Absent: scleral icterus, conjunctival injection, periorbital swelling ENT exam: Present: normal exam, normal oropharynx, mucous membranes moist, TM's normal bilaterally Neck exam: Present: normal inspection, full ROM. Absent: tenderness, meningismus, lymphadenopathy Respiratory exam: Present: normal lung sounds bilaterally. Absent: respiratory distress, wheezes, rales, rhonchi, stridor Cardiovascular Exam: Present: regular rate, normal rhythm, normal heart sounds. Absent: systolic murmur, diastolic murmur, rubs, gallop, clicks GI/Abdominal exam: Present: soft, tenderness (Mild right-sided abdominal tenderness), normal bowel sounds. Absent: distended, guarding, rebound, rigid Back exam: Absent: CVA tenderness (R), CVA tenderness (L) Skin exam: Present: warm, dry, intact, normal color. Absent: rash Course Vital Signs 11/07/18 14:38 Temperature 97.4 F L Pulse Rate 74 Respiratory 16 Rate Blood Pressure 128/89 O2 Sat by Pulse 97 Oximetry EKG Findings - EKG Comments: EKG Findings:: EKG performed at 15:0 normal sinus rhythm with rate 78 IA 150 QRS 70 QTC is QTC 394/449 Medical Decision Making - Medical Decision Making 53-year-old female who for chest pain, nausea vomiting diarrhea. Patient has gastroenteritis oh she developed chest pain today alleviate with nitro. Concerning for 9 cardiac disease. Patient will be admitted for cardiology evaluation, IV hydration and antiemetics. - Lab Data Result diagrams: 11/07/18 15:00 11/07/18 15:00 Lab Results 11/07/18 11/07/18 11/07/18 Range/Units 15:00 15:00 15:00 WBC 6.8 (3.8-10.6) k/uL RBC 5.45 H (3.80-5.40) m/uL Hgb 15.4 (11.4-16.0) gm/dL Hct 47.2 H (34.0-46.0) % MCV 86.8 (80.0-100.0) fL MCH 28.2 (25.0-35.0) pg MCHC 32.6 (31.0-37.0) g/dL RDW 14.6 (11.5-15.5) % Plt Count 307 (150-450) k/uL Neutrophils % 68 % Lymphocytes % 17 % Monocytes % 9 % Eosinophils % 3 % Basophils % 0 % Neutrophils # 4.6 (1.3-7.7) k/uL Lymphocytes # 1.2 (1.0-4.8) k/uL Monocytes # 0.6 (0-1.0) k/uL Eosinophils # 0.2 (0-0.7) k/uL Basophils # 0.0 (0-0.2) k/uL Sodium 138 (137-145) mmol/L Potassium 4.3 (3.5-5.1) mmol/L Chloride 106 (98-107) mmol/L Carbon Dioxide 18 L (22-30) mmol/L Anion Gap 14 mmol/L BUN 18 H (7-17) mg/dL Creatinine 0.83 (0.52-1.04) mg/dL Est GFR (CKD-EPI)AfAm >90 (>60 ml/min/1.73 sqM) Est GFR (CKD-EPI)NonAf 81 (>60 ml/min/1.73 sqM) Glucose 109 H (74-99) mg/dL Calcium 9.5 (8.4-10.2) mg/dL Total Bilirubin 0.5 (0.2-1.3) mg/dL AST 26 (14-36) U/L ALT 34 (9-52) U/L Alkaline Phosphatase 95 (38-126) U/L Troponin I <0.012 (0.000-0.034) ng/mL Total Protein 7.4 (6.3-8.2) g/dL Albumin 4.1 (3.5-5.0) g/dL Amylase 46 (30-110) U/L Lipase 69 (23-300) U/L Urine Color Urine Appearance (Clear) Urine pH (5.0-8.0) Ur Specific [place] (1.001-1.035) Urine Protein (Negative) Urine Glucose (UA) (Negative) Urine Ketones (Negative) Urine Blood (Negative) Urine Nitrite (Negative) Urine Bilirubin (Negative) Urine Urobilinogen (<2.0) mg/dL Ur Leukocyte Esterase (Negative) Urine RBC (0-5) /hpf Urine WBC (0-5) /hpf Ur Squamous Epith Cells (0-4) /hpf Urine Bacteria (None) /hpf Hyaline Casts (0-2) /lpf Urine Mucus (None) /hpf 11/07/18 Range/Units 16:21 WBC (3.8-10.6) k/uL RBC (3.80-5.40) m/uL Hgb (11.4-16.0) gm/dL Hct (34.0-46.0) % MCV (80.0-100.0) fL MCH (25.0-35.0) pg MCHC (31.0-37.0) g/dL RDW (11.5-15.5) % Plt Count (150-450) k/uL Neutrophils % % Lymphocytes % % Monocytes % % Eosinophils % % Basophils % % Neutrophils # (1.3-7.7) k/uL Lymphocytes # (1.0-4.8) k/uL Monocytes # (0-1.0) k/uL Eosinophils # (0-0.7) k/uL Basophils # (0-0.2) k/uL Sodium (137-145) mmol/L Potassium (3.5-5.1) mmol/L Chloride (98-107) mmol/L Carbon Dioxide (22-30) mmol/L Anion Gap mmol/L BUN (7-17) mg/dL Creatinine (0.52-1.04) mg/dL Est GFR (CKD-EPI)AfAm (>60 ml/min/1.73 sqM) Est GFR (CKD-EPI)NonAf (>60 ml/min/1.73 sqM) Glucose (74-99) mg/dL Calcium (8.4-10.2) mg/dL Total Bilirubin (0.2-1.3) mg/dL AST (14-36) U/L ALT (9-52) U/L Alkaline Phosphatase (38-126) U/L Troponin I (0.000-0.034) ng/mL Total Protein (6.3-8.2) g/dL Albumin (3.5-5.0) g/dL Amylase (30-110) U/L Lipase (23-300) U/L Urine Color Yellow Urine Appearance Cloudy H (Clear) Urine pH 5.5 (5.0-8.0) Ur Specific [place] 1.028 (1.001-1.035) Urine Protein 1+ H (Negative) Urine Glucose (UA) Negative (Negative) Urine Ketones 2+ H (Negative) Urine Blood Moderate H (Negative) Urine Nitrite Negative (Negative) Urine Bilirubin Negative (Negative) Urine Urobilinogen <2.0 (<2.0) mg/dL Ur Leukocyte Esterase Negative (Negative) Urine RBC 2 (0-5) /hpf Urine WBC 4 (0-5) /hpf Ur Squamous Epith Cells 2 (0-4) /hpf Urine Bacteria Rare H (None) /hpf Hyaline Casts 35 H (0-2) /lpf Urine Mucus Many H (None) /hpf Disposition Clinical Impression: Chest pain, Dehydration, Gastroenteritis Disposition: ADMITTED IP TO THIS [facility] Condition: Stable Referrals: Bro Cristina MD [Primary Care Provider] - 1-2 days
[2018-11-07 15:47] LABS: ALT 34 U/L (9-52); AST 26 U/L (14-36); Albumin 4.1 g/dL (3.5-5.0); Alkaline Phosphatase 95 U/L (38-126); Amylase 46 U/L (30-110); Anion Gap 14 mmol/L; Blood Urea Nitrogen 18 mg/dL (7-17); Calcium 9.5 mg/dL (8.4-10.2); Carbon Dioxide 18 mmol/L (22-30); Chloride 106 mmol/L (98-107); Glucose 109 mg/dL (74-99); Lipase 69 U/L (23-300); Potassium 4.3 mmol/L (3.5-5.1); Sodium 138 mmol/L (137-145); Total Bilirubin 0.5 mg/dL (0.2-1.3); Total Protein 7.4 g/dL (6.3-8.2)
--- NOTE | 2018-11-07 15:49 | XR ---
EXAMINATION TYPE: XR chest 2V DATE OF EXAM: 11/07/2018 COMPARISON: 03/13/2018 HISTORY: Cough, vomiting, and diarrhea for 3 days TECHNIQUE: Frontal and lateral views of the chest are obtained. FINDINGS: There is no focal air space opacity, pleural effusion, or pneumothorax seen. The cardiac silhouette size is within normal limits. The osseous structures are intact. IMPRESSION: No acute cardiopulmonary process.
--- NOTE | 2018-11-07 15:51 | XR ---
EXAMINATION TYPE: XR KUB DATE OF EXAM: 11/07/2018 3:46 PM CLINICAL HISTORY: Abdominal pain TECHNIQUE: Single upright image of the abdomen is obtained. COMPARISON: None. FINDINGS: There are scattered colonic air-fluid levels within nondilated bowel. Few mildly dilated lo ops of centralized small bowel are seen. There is a paucity of air within the descending colon and si gmoid colon. No pneumoperitoneum is seen. No abnormal calcification. Cholecystectomy clips are presen t. No acute osseous pathology. Very minimal dextroscoliosis of the lumbar spine. Lung bases are well aerated. IMPRESSION: Colonic and small bowel air-fluid levels with minimally dilated centralized loops of smal l bowel. Differential is for ileus or early bowel obstruction.
[2018-11-07 15:54] LABS: Basophils % (A) 0 %; Eosinophils # (A) 0.2 k/uL (0-0.7); Eosinophils % (A) 3 %; HCT 47.2 % (34.0-46.0); HGB 15.4 gm/dL (11.4-16.0); Lymphocytes # (A) 1.2 k/uL (1.0-4.8); Lymphocytes % (A) 17 %; MCH 28.2 pg (25.0-35.0); MCHC 32.6 g/dL (31.0-37.0); MCV 86.8 fL (80.0-100.0); Mean Platelet Volume 8.1; Monocytes # (A) 0.6 k/uL (0-1.0); Monocytes % (A) 9 %; Neutrophils # (A) 4.6 k/uL (1.3-7.7); Neutrophils % (A) 68 %; Platelet Count 307 k/uL (150-450); RBC 5.45 m/uL (3.80-5.40); RDW 14.6 % (11.5-15.5); WBC 6.8 k/uL (3.8-10.6)
[2018-11-07 16:27] LABS: Appearance,Urine Cloudy (Clear); Bacteria,Urine Rare /hpf; Bilirubin,Urine Negative (Negative); Blood,Urine Moderate (Negative); Color,Urine Yellow; Glucose,Urine (UA) Negative (Negative); Hyaline Casts,Urine 35 /lpf (0-2); Ketones,Urine 2+ (Negative); Leukocyte Esterase,Urine Negative (Negative); Mucus,Urine Many /hpf; Nitrite,Urine Negative (Negative); PH, Urine 5.5 (5.0-8.0); Protein,Urine 1+ (Negative); RBC,Urine 2 /hpf (0-5); Specific Gravity,Urine 1.028 (1.001-1.035); Squamous Epithelial Cell,Urine 2 /hpf (0-4); Urobilinogen,Urine <2.0 mg/dL (<2.0); WBC,Urine 4 /hpf (0-5)
[2018-11-07] MEDS ORDERED: NITROGLYCERIN SL TABS 0.4 MG TAB SUBLINGUAL PRN (16:51)
[2018-11-07] MEDS ORDERED: ASPIRIN 81 MG PO STA (16:51)
[2018-11-07] MEDS ORDERED: HEPARIN SODIUM,PORCINE 5,000 UNIT/ML 1 ML VIAL IV ONE (16:51)
[2018-11-07] MEDS ORDERED: HEPARIN SOD,PORK IN 0.45% NACL 25,000 UNIT in 0.45% NACL 1 250ML.BAG IV SCH (17:00)
[2018-11-07] MEDS: ONDANSETRON 4 MG/2 ML VIAL IVP PRN (22:11)
[2018-11-08 05:58] LABS: Mean Platelet Volume 7.8; Platelet Count 258 k/uL (150-450)
[2018-11-08 06:31] LABS: Cholesterol 101 mg/dL (<200); HDL Cholesterol 40 mg/dL (40-60); LDL Cholesterol,Calculated 43 mg/dL (0-99); Triglycerides 89 mg/dL (<150)
[2018-11-08] MEDS: IOPAMIDOL-300 CONTRAST 30 ML VIAL (ORAL USE) PO PRN ×2 (10:07→11:23)
--- NOTE | 2018-11-08 10:45 | P.CRDCN ---
History of Present Illness History of present illness: This is a pleasant 53-year-old female past medical history significant for gastroesophageal reflux disease, recent nisin fundoplication, dyslipidemia and former nicotine dependence. She also had an episode of pericarditis in 2017. She denies history of coronary artery disease and does not follow regularly with a first coat operator. We have asked to see her in consultation secondary to chest discomfort. She states for the previous 3-4 days she has been suffering with a stomach virus and has been consistently vomiting and having persistent diarrhea. She started to feel better yesterday so she decided to go back to work. 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 She became acutely diaphoretic and very lightheaded like she was going to pass out. The symptoms lasted only a couple of minutes and subsided on her own. She came to the hospital for further evaluation. By the time she arrived in the emergency department she was no longer having chest discomfort however intermittent times through the night she is feeling a dull ache in the left precordial region but no further sharp chest discomfort. X-ray of the abdomen reveals possible ileus versus small bowel obstruction. EKG reveals sinus mechanism with no acute ST or T wave abnormalities noted. Chest x-ray is negative for an acute cardiopulmonary process. Laboratory data reviewed, WBC 6.8, hemoglobin 15.4, platelets 258, sodium 138, potassium 4.3, creatinine 0.83, cardiac enzymes negative 3, LDL 43 and HDL 40. Current cardiac medications include atorvastatin 10 mg daily. Most recent stress test performed 2017 was a Cardiolite stress test was negative for reversible cardiac ischemia. Most recent echocardiogram 2017 revealed preserved left ventricular systolic function with ejection fraction 55-60%. At the time of my exam: CONSTITUTIONAL: Denies fever. Denies chills. EYES: Denies blurred vision. Denies vision changes. Denies eye pain. EARS, NOSE, MOUTH & THROAT: Denies headache. Denies sore throat. Denies ear pain. CARDIOVASCULAR: Denies chest pain. Denies shortness of breath. Denies orthopnea. Denies PND. Denies palpitations. RESPIRATORY: Denies cough. GASTROINTESTINAL: Complains of intermittent abdominal pain. Denies diarrhea. Denies constipation. Complains of nausea. Denies vomiting. MUSCULOSKELETAL: Denies myalgias. INTEGUMENTARY: Denies pruitis. Denies rash. NEUROLOGIC: Denies numbness. Denies tingling. Denies weakness. PSYCHIATRIC: Denies anxiety. Denies depression. ENDOCRINE: Denies fatigue. Denies weight change. Denies polydipsia. Denies polyurina. GENITOURINARY: Denies burning, hematuria or urgency with micturation. HEMATOLOGIC: Denies history of anemia. Denies bleeding. Blood pressure 94/61 heart rate 67 afebrile maintaining oxygen saturation on room air GENERAL: This is a 53-year-old female in no apparent distress at the time of my examination. HEENT: Head is atraumatic, normocephalic. Pupils are equal, round. Sclerae anicteric. Conjunctivae are clear. Mucous membranes of the mouth are moist. Neck is supple. There is no jugular venous distention. No carotid bruit is heard. LUNGS: Clear to auscultation no wheezes, rales or rhonchi. No chest wall tenderness is noted on palpation or with deep breathing. HEART: Regular rate and rhythm without murmurs, rubs or gallops. S1 and S2 heard. ABDOMEN: Soft, nontender. Bowel sounds are heard hypoactive. No organomegaly noted. EXTREMITIES: No evidence of peripheral edema and no calf tenderness noted. VASCULAR: Radial and dorsalis pedis pulses palpated, no evidence of clubbing. NEUROLOGIC: Patient is awake, alert and oriented x3. ASSESSMENT Chest pain, atypical for angina. An acute coronary event has been ruled out. Abdominal discomfort associated with nausea, vomiting and diarrhea but the possibility of ileus versus small bowel obstruction noted Gastroesophageal reflux disease Nisin fundoplication Dyslipidemia Former nicotine dependence PLAN An acute coronary event has been ruled out with no EKG evidence of ischemia and negative cardiac enzymes. Discontinue heparin infusion. Obtain 2D echocardiogram and doppler study to assess cardiac structure and function. Ongoing medical management for possible bowel obstruction per surgery team, hypoactive bowel sounds heard and she is passing gas as soon as last night overnight. Thank you kindly for this consultation. Nurse Practitioner note has been reviewed, I agree with a documented findings and plan of care. Patient was seen and examined. Past Medical History Past Medical History: GERD/Reflux, Hyperlipidemia, Rheumatoid Arthritis (RA) Additional Past Medical History / Comment(s): enlarged L ventricle per patient History of Any Multi-Drug Resistant Organisms: None Reported Past Surgical History: Appendectomy, Cholecystectomy, Hysterectomy Additional Past Surgical History / Comment(s): Claudio Fundoplication Past Anesthesia/Blood Transfusion Reactions: Motion Sickness Past Psychological History: Depression Smoking Status: Never smoker Past Alcohol Use History: None Reported Additional Past Alcohol Use History / Comment(s): QUIT SMOKING 06/15/2017 Past Drug Use History: None Reported - Past Family History Mother Family Medical History: No Reported History Medications and Allergies Home Medications Medication Instructions Recorded Confirmed Type Atorvastatin [Lipitor] 10 mg PO HS 03/13/18 11/07/18 History FLUoxetine HCL [PROzac] 10 mg PO HS 03/13/18 11/07/18 History Allergies Allergy/AdvReac Type Severity Reaction Status Date / Time cephalexin monohydrate AdvReac Swelling Verified 11/07/18 16:25 [From Keflex] codeine AdvReac Itching Verified 11/07/18 16:25 erythromycin base AdvReac Swelling Verified 11/07/18 16:25 [Erythromycin Base] Sulfa (Sulfonamide AdvReac Swelling Verified 11/07/18 16:25 Antibiotics) Physical Exam Vitals: Vital Signs Temp Pulse Pulse Pulse Resp BP BP 11/08/18 07:56 97.5 F L 67 18 11/08/18 04:00 66 16 11/08/18 03:50 97.9 F 60 14 110/67 11/08/18 00:00 62 15 11/07/18 21:26 97.7 F 79 15 119/86 11/07/18 21:14 17 11/07/18 21:00 97.7 F 80 18 122/69 11/07/18 19:57 78 18 122/89 11/07/18 17:00 73 16 121/79 11/07/18 16:00 67 15 122/82 11/07/18 15:00 87 13 128/89 11/07/18 14:38 97.4 F L 74 16 128/89 BP Pulse Ox 11/08/18 07:56 94/61 96 11/08/18 04:00 11/08/18 03:50 100 11/08/18 00:00 11/07/18 21:26 100 11/07/18 21:14 11/07/18 21:00 96 11/07/18 19:57 96 04/10/19 17:00 95 11/07/18 16:00 96 11/07/18 15:00 98 11/07/18 14:38 97 Intake and Output 11/07/18 11/08/18 11/08/18 22:59 06:59 14:59 Intake Total 125.167 Balance 125.167 Intake: Intake, IV Titration 125.167 Amount Heparin Sod,Pork in 0.45% 125.167 NaCl 25,000 unit In 0.45 % NaCl 1 250ml.bag @ 11. 543 UNITS/KG/HR 10 mls/hr IV .Q24H [facility] Rx#: [id number] Other: Voiding Method Toilet # Voids 1 1 Results 11/08/18 05:30 11/07/18 15:00 Cardiac Enzymes 11/07/18 11/07/18 11/07/18 Range/Units 15:00 15:00 17:17 AST 26 (14-36) U/L Troponin I <0.012 <0.012 (0.000-0.034) ng/mL 11/07/18 Range/Units 23:03 AST (14-36) U/L Troponin I <0.012 (0.000-0.034) ng/mL Coagulation 11/07/18 11/07/18 11/08/18 Range/Units 17:17 23:03 05:30 APTT 24.8 50.1 H 40.0 H (22.0-30.0) sec Lipids 11/08/18 Range/Units 05:30 Triglycerides 89 (<150) mg/dL Cholesterol 101 (<200) mg/dL HDL Cholesterol 40 (40-60) mg/dL CBC 11/07/18 11/08/18 Range/Units 15:00 05:30 WBC 6.8 (3.8-10.6) k/uL RBC 5.45 H (3.80-5.40) m/uL Hgb 15.4 (11.4-16.0) gm/dL Hct 47.2 H (34.0-46.0) % Plt Count 307 258 (150-450) k/uL Comprehensive Metabolic Panel 11/07/18 Range/Units 15:00 Sodium 138 (137-145) mmol/L Potassium 4.3 (3.5-5.1) mmol/L Chloride 106 (98-107) mmol/L Carbon Dioxide 18 L (22-30) mmol/L BUN 18 H (7-17) mg/dL Creatinine 0.83 (0.52-1.04) mg/dL Glucose 109 H (74-99) mg/dL Calcium 9.5 (8.4-10.2) mg/dL AST 26 (14-36) U/L ALT 34 (9-52) U/L Alkaline Phosphatase 95 (38-126) U/L Total Protein 7.4 (6.3-8.2) g/dL Albumin 4.1 (3.5-5.0) g/dL Current Medications Generic Name Dose Route Start Last Admin Trade Name Freq PRN Reason Stop Dose Admin Aspirin 325 mg 11/08/18 09:00 Aspirin PO DAILY [facility] Atorvastatin Calcium 10 mg 11/08/18 21:00 Lipitor PO HS [facility] Fluoxetine HCl 10 mg 11/08/18 21:00 Prozac PO HS [facility] Heparin Sodium/Sodium Chloride 250 mls @ 10 mls/hr 11/07/18 17:00 11/08/18 06:15 25,000 unit/ Sodium Chloride IV 13.85 units/kg/hr .Q24H [facility] 12 mls/hr Titration Protocol 11.543 UNITS/KG/HR Nitroglycerin 0.4 mg 11/07/18 16:51 Nitrostat SUBLINGUAL Q5M PRN Chest Pain Ondansetron HCl 4 mg 11/07/18 16:53 11/07/18 22:11 Zofran IVP 4 mg Q6HR PRN Administration Nausea And Vomiting Intake and Output 11/07/18 11/08/18 11/08/18 22:59 06:59 14:59 Intake Total 125.167 Balance 125.167 Intake: Intake, IV Titration 125.167 Amount Heparin Sod,Pork in 0.45% 125.167 NaCl 25,000 unit In 0.45 % NaCl 1 250ml.bag @ 11. 543 UNITS/KG/HR 10 mls/hr IV .Q24H [facility] Rx#: [id number] Other: Voiding Method Toilet # Voids 1 1 11/08/18 05:30 11/07/18 15:00
[2018-11-08] MEDS: ASPIRIN 325 MG TAB PO SCH (12:31)
--- NOTE | 2018-11-08 12:54 | CT ---
EXAMINATION TYPE: CT abdomen pelvis w con DATE OF EXAM: 11/08/2018 COMPARISON: INDICATION: Abdominal pain nausea vomiting diarrhea DLP: 1054.1 mGycm, Automated exposure control for dose reduction was used. CONTRAST: 100 mL of Isovue 300. Study performed with Oral Contrast TECHNIQUE: Axial images were obtained from above the diaphragm to the pubic rami in the axial plane a t 5 mm thick sections. Reconstructed images are reviewed on the computer in the coronal plane. FINDINGS: Limited CT sections are obtained the lung bases. The lung bases are clear. CT ABDOMEN: Appears be a prior Kuldeep fundoplication. Liver: Normal Spleen: Normal Pancreas: Normal Adrenal glands: The adrenal glands are normal. Gallbladder: Surgically absent Kidneys: No masses are evident. No hydronephrosis is present. No cysts are present. Delayed images were obtained through the kidneys, which remain unremarkable. Aorta: Normal Inferior vena cava: Normal. CT PELVIS: Loops of bowel within the abdomen and pelvis are normal. There are loops of bowel which are incom pletely distended or lack oral contrast limiting their evaluation. Appendix: Not identified. No suspicious tubular structures or inflammatory changes are evident. The c ecum is deep within the pelvis near some free fluid within the pelvis. Clinical management of any erlin pected appendicitis will be required. Urinary bladder: Normal. Genitourinary structures: Uterus is surgically absent. Adnexal regions are unremarkable. Very minimal free fluid is within the pelvis. Osseous structures: No suspicious lytic or sclerotic lesions. IMPRESSIONS: 1. Minimal free fluid within the pelvis. 2. Nonvisualization of the appendix. Clinical management of any suspected appendicitis will be recomm ended. The cecum is deep within the pelvis. Correlate with location of the patient's abdominal pain.
--- NOTE | 2018-11-08 14:22 | P.GSCN ---
History of Present Illness Consult date: 11/08/18 Reason for Consult: SBO Requesting physician: Bro Cristina History of present illness: CHIEF COMPLAINT: nausea, vomiting HISTORY OF PRESENT ILLNESS: 53-year-old female who presented to emergency room with a chief complaint of nausea, vomiting, and diarrhea. Patient reports Monday night she began having right upper quadrant pain that has since spread to her whole abdomen. She reports multiple episodes of nonbloody vomiting and diarrhea. Patient is tolerating small amounts of clear liquids. WBC 6.8 on admission. Hemoglobin 15.4. Testing for influenza A and B was negative. PAST MEDICAL HISTORY: See list. PAST SURGICAL HISTORY: See list. SOCIAL HISTORY: No illicit drug use. REVIEW OF SYSTEMS: CONSTITUTIONAL: Denies fever or chills. HEENT: Denies blurred vision, vision changes, or eye pain. Denies hemoptysis CARDIOVASCULAR: Denies chest pain or pressure. RESPIRATORY: No shortness of breath. GASTROINTESTINAL: Refer to HPI for pertinent findings HEMATOLOGIC: Denies bleeding disorders. GENITOURINARY: Denies any blood in urine. SKIN: Denies pruitis. Denies rash. PHYSICAL EXAM: VITAL SIGNS: Reviewed. GENERAL: Well-developed in no acute distress. HEENT: No sclera icterus. Extraocular movements grossly intact. Moist buccal mucosa. Head is atraumatic, normocephalic. ABDOMEN: Soft. Nondistended. tenderness noted upon palpation of right upper quadrant and near umbilicus. NEUROLOGIC: Alert and oriented. Cranial nerves II through XII grossly intact. IMAGIN. KUB x-ray colonic and small bowel air-fluid levels with minimally dilated centralized loops of small bowel. Differential for ileus or early bowel obstruction. 2. CT abdomen and pelvis: Minimal free fluid within the pelvis. Loops of bowel within the abdomen and pelvis are normal. ASSESSMENT: 1. Nausea, vomiting, diarrhea 4 days, possible gastroenteritis, CT negative for obstruction 2. History of Claudio fundoplication May 2018 3. History of cholecystectomy and appendectomy PLAN: Clear liquid diet. Advance as tolerated No surgical intervention recommended Nurse practitioner note has been reviewed by physician. Signing provider agrees with the documented findings, assessment, and plan of care. Past Medical History Past Medical History: GERD/Reflux, Hyperlipidemia, Rheumatoid Arthritis (RA) Additional Past Medical History / Comment(s): enlarged L ventricle per patient History of Any Multi-Drug Resistant Organisms: None Reported Past Surgical History: Appendectomy, Cholecystectomy, Hysterectomy Additional Past Surgical History / Comment(s): Claudio Fundoplication Past Anesthesia/Blood Transfusion Reactions: Motion Sickness Past Psychological History: Depression Smoking Status: Never smoker Past Alcohol Use History: None Reported Additional Past Alcohol Use History / Comment(s): QUIT SMOKING 06/15/2017 Past Drug Use History: None Reported - Past Family History Mother Family Medical History: No Reported History Medications and Allergies Home Medications Medication Instructions Recorded Confirmed Type Atorvastatin [Lipitor] 10 mg PO HS 03/13/18 11/07/18 History FLUoxetine HCL [PROzac] 10 mg PO HS 03/13/18 11/07/18 History Allergies Allergy/AdvReac Type Severity Reaction Status Date / Time cephalexin monohydrate AdvReac Swelling Verified 11/07/18 16:25 [From Keflex] codeine AdvReac Itching Verified 11/07/18 16:25 erythromycin base AdvReac Swelling Verified 11/07/18 16:25 [Erythromycin Base] Sulfa (Sulfonamide AdvReac Swelling Verified 11/07/18 16:25 Antibiotics) Surgical - Exam Vital Signs Temp Pulse Resp BP Pulse Ox 97.4 F L 74 16 128/89 97 11/07/18 14:38 11/07/18 14:38 11/07/18 14:38 11/07/18 14:38 11/07/18 14:38 Results - Labs 11/08/18 05:30 11/07/18 15:00 Abnormal Lab Results - Last 24 Hours (Table) 11/07/18 11/07/18 11/07/18 Range/Units 15:00 15:00 16:21 RBC 5.45 H (3.80-5.40) m/uL Hct 47.2 H (34.0-46.0) % APTT (22.0-30.0) sec Carbon Dioxide 18 L (22-30) mmol/L BUN 18 H (7-17) mg/dL Glucose 109 H (74-99) mg/dL Urine Appearance Cloudy H (Clear) Urine Protein 1+ H (Negative) Urine Ketones 2+ H (Negative) Urine Blood Moderate H (Negative) Urine Bacteria Rare H (None) /hpf Hyaline Casts 35 H (0-2) /lpf Urine Mucus Many H (None) /hpf 11/07/18 11/08/18 Range/Units 23:03 05:30 RBC (3.80-5.40) m/uL Hct (34.0-46.0) % APTT 50.1 H 40.0 H (22.0-30.0) sec Carbon Dioxide (22-30) mmol/L BUN (7-17) mg/dL Glucose (74-99) mg/dL Urine Appearance (Clear) Urine Protein (Negative) Urine Ketones (Negative) Urine Blood (Negative) Urine Bacteria (None) /hpf Hyaline Casts (0-2) /lpf Urine Mucus (None) /hpf Diabetes panel 11/07/18 11/08/18 Range/Units 15:00 05:30 Sodium 138 (137-145) mmol/L Potassium 4.3 (3.5-5.1) mmol/L Chloride 106 (98-107) mmol/L Carbon Dioxide 18 L (22-30) mmol/L BUN 18 H (7-17) mg/dL Creatinine 0.83 (0.52-1.04) mg/dL Glucose 109 H (74-99) mg/dL Calcium 9.5 (8.4-10.2) mg/dL AST 26 (14-36) U/L ALT 34 (9-52) U/L Alkaline Phosphatase 95 (38-126) U/L Total Protein 7.4 (6.3-8.2) g/dL Albumin 4.1 (3.5-5.0) g/dL Triglycerides 89 (<150) mg/dL HDL Cholesterol 40 (40-60) mg/dL Calcium panel 11/07/18 Range/Units 15:00 Calcium 9.5 (8.4-10.2) mg/dL Albumin 4.1 (3.5-5.0) g/dL Pituitary panel 11/07/18 Range/Units 15:00 Sodium 138 (137-145) mmol/L Potassium 4.3 (3.5-5.1) mmol/L Chloride 106 (98-107) mmol/L Carbon Dioxide 18 L (22-30) mmol/L BUN 18 H (7-17) mg/dL Creatinine 0.83 (0.52-1.04) mg/dL Glucose 109 H (74-99) mg/dL Calcium 9.5 (8.4-10.2) mg/dL Adrenal panel 11/07/18 Range/Units 15:00 Sodium 138 (137-145) mmol/L Potassium 4.3 (3.5-5.1) mmol/L Chloride 106 (98-107) mmol/L Carbon Dioxide 18 L (22-30) mmol/L BUN 18 H (7-17) mg/dL Creatinine 0.83 (0.52-1.04) mg/dL Glucose 109 H (74-99) mg/dL Calcium 9.5 (8.4-10.2) mg/dL Total Bilirubin 0.5 (0.2-1.3) mg/dL AST 26 (14-36) U/L ALT 34 (9-52) U/L Alkaline Phosphatase 95 (38-126) U/L Total Protein 7.4 (6.3-8.2) g/dL Albumin 4.1 (3.5-5.0) g/dL
[2018-11-08] MEDS: ONDANSETRON 4 MG/2 ML VIAL IVP PRN (14:49)
--- NOTE | 2018-11-08 15:22 | HP ---
HISTORY AND PHYSICAL Iram Hardy is a 53-year-old female who presented to [facility] with abdominal pain. This has been associated in the epigastric area. She had emesis. She also subsequently had diarrhea. She had chest pain, was seen in the ER and subsequently admitted for further evaluation and management. She has had some chills. No clear fever. PAST MEDICAL HISTORY: Positive for gastroesophageal reflux disease, enlarged left ventricle, hyperlipidemia, rheumatoid arthritis, cholecystectomy, hysterectomy, recent fundoplication, depression. SOCIAL HISTORY: Patient is a former smoker. Does not drink alcohol excessively. FAMILY HISTORY: Noncontributory. MEDICATIONS: Prior to admission were fluoxetine and atorvastatin. ALLERGIES: To KEFLEX, CODEINE, ERYTHROMYCIN and SULFONAMIDES. REVIEW OF SYSTEMS: Noncontributory other than for what is described in the history of present illness and past medical history. PHYSICAL EXAMINATION: Respiratory rate is 18, pulse rate of 61, temperature 97.9, blood pressure 104/70, O2 SAT on room air is 97%. HEENT is unremarkable. Chest reveals decreased breath sounds in the bases. No clear wheeze. Cardiovascular system reveals an S1, S2. Abdomen is soft. There is no edema. White count of 6.8, hemoglobin of 15.4, sodium 138, potassium 4.3, chloride 106, bicarb 18, glucose 109, lipase 69, amylase 46. Troponin is less than 0.012. UA shows 1+ protein, 2+ ketones. Influenza A and B are not detected. Abdomen and pelvis CT showed evidence of minimal fluid within the pelvis. No appendix was visualized. IMPRESSION: 1. Acute gastroenteritis, most likely secondary to viral etiology. 2. Obesity. 3. Chest pain, etiology which is unclear, may be due to cardiac etiology versus a noncardiac etiology. At this point in time, Cardiology has been consulted. Patient is on IV fluids, aspirin, heparin. Patient has been evaluated by Cardiology. We will await their final recommendations, keep her hydrated. Hopefully her gastroenteritis will be self- limited. Depending on how she does, we shall make further changes to her care. MMODL / IJN: [id number] /
[2018-11-08] MEDS: ACETAMINOPHEN TAB 325 MG TAB PO PRN ×2 (17:18→21:11)
[2018-11-08] MEDS: SODIUM CHLORIDE 0.9% 1,000 ML IV SCH (17:18)
--- NOTE | 2018-11-08 19:21 | ECHOF ---
Referral Reason:cp MEASUREMENTS -------- HEIGHT: 172.7 cm WEIGHT: 86.6 kg BP: 94/61 RVIDd: 2.5 cm (< 3.3) IVSd: 0.9 cm (0.6 - 1.1) LVIDd: 4.1 cm (3.9 - 5.3) LVPWd: 1.0 cm (0.6 - 1.1) IVSs: 1.2 cm LVIDs: 2.4 cm LVPWs: 1.5 cm LA Diam: 3.2 cm (2.7 - 3.8) Ao Diam: 2.8 cm (2.0 - 3.7) AV Cusp: 1.9 cm (1.5 - 2.6) LA Diam: 3.9 cm (2.7 - 3.8) MV EXCURSION: 18.395 mm (> 18.000) MV EF SLOPE: 122 mm/s (70 - 150) EPSS: 0.6 cm MV E Darirck: 0.67 m/s MV DecT: 249 ms MV A Darrick: 0.78 m/s MV E/A Ratio: 0.86 RAP: 5.00 mmHg RVSP: 20.59 mmHg FINDINGS -------- Sinus rhythm. This was a technically good study. LV size, wall thickness and systolic function are normal, with an EF greater than 55%. The left burke tricular size is normal. The right ventricle is normal in size. The left atrial size is normal. The right atrial size is normal. There is mild aortic valve sclerosis. There is no evidence of aortic regurgitation. Mild mitral annular calcification present. Mild mitral regurgitation is present. Mild tricuspid regurgitation present. There is no evidence of pulmonary hypertension. The right v entricular systolic pressure, as measured by Doppler, is 20.59mmHg. There is no pulmonic regurgitation present. The aortic root size is normal. There is no pericardial effusion. CONCLUSIONS -------- 1. LV size, wall thickness and systolic function are normal, with an EF greater than 55%. 2. The left ventricular size is normal. 3. The right ventricle is normal in size. 4. The left atrial size is normal. 5. The right atrial size is normal. 6. There is mild aortic valve sclerosis. 7. Mild mitral annular calcification present. 8. Mild mitral regurgitation is present. 9. Mild tricuspid regurgitation present. 10. There is no evidence of pulmonary hypertension. 11. The right ventricular systolic pressure, as measured by Doppler, is 20.59mmHg. 12. There is no pulmonic regurgitation present. 13. The aortic root size is normal. 14. There is no pericardial effusion. EMBLEM MAKER: Nohemy Michael RDCS
[2018-11-08] MEDS ORDERED: FLUoxetine HCL 10 MG CAP PO SCH (21:00)
[2018-11-08] MEDS ORDERED: ATORVASTATIN 10 MG TAB PO SCH (21:00)
[2018-11-09] MEDS: SODIUM CHLORIDE 0.9% 1,000 ML IV SCH (02:18)
[2018-11-09 07:57] VITALS: BP 114/76; PULSE 50; RESP 18; TEMP 97.4
[2018-11-09 08:08] LABS: Mean Platelet Volume 7.7; Platelet Count 242 k/uL (150-450)
[2018-11-09] MEDS: ASPIRIN 325 MG TAB PO SCH (08:26)
--- NOTE | 2018-11-10 06:39 | DS ---
DISCHARGE SUMMARY Iram Hardy is a 53-year-old female who presented to the ED on October2018. At that time, she had been having nausea, vomiting and abdominal pain. She also had some diarrhea. She had chills but no clear documented fever. Past medical history is positive for gastric residual reflux disease, enlarged left ventricle, rheumatoid arthritis, cholecystectomy, hysterectomy, recent fundal duplication, and depression. Family history is noncontributory. Social history: Patient is a nonsmoker and does not drink alcohol excessively. On physical examination, her vitals were stable. She was afebrile. Chest was clear. Cardiovascular system is S1, S2. Abdomen is soft. There was no edema. INITIAL IMPRESSION: 1. Acute gastroenteritis. 2. Obesity. 3. Chest pain. The patient was seen by Cardiology and was thought not to have cardiac etiology. The patient had what was thought to be gastroenteritis and improved with conservative care. On October2018 she was discharged. She had minimal abdominal pain. No diarrhea or nausea. On physical examination, heart rate is 50, respiratory rate 18, temperature 97.4, blood pressure 114/76. HEENT is unremarkable. Chest is clear. Cardiovascular system revealed S1, S2. Abdomen is soft. There is no edema. The patient was discharged home. DISCHARGE DIAGNOSES: Acute gastroenteritis. CONDITION: Stable. DIET: Regular. ACTIVITY: As tolerated. Patient is to follow up with Dr. Bro Cristina in 4-5 days time. DISCHARGE MEDICATIONS: 1. Lipitor 20 mg p.o. q.h.s. 2. Fluoxetine 10 mg p.o. q.h.s. MMODL / IJN: [id number] /
== END 2018-11-09 10:22 | disposition home or self-care (01) ==
LOC: EC 14:34 → 1SOBS 16:41
PROVIDERS: ADMIT Family Medicine; ATTEND Family Medicine
DX: K52.9 Noninfective gastroenteritis and colitis, unspecified (principal); E66.9 Obesity, unspecified; Z68.29 Body mass index [BMI] 29.0-29.9, adult; E86.0 Dehydration; R07.2 Precordial pain; R61 Generalized hyperhidrosis; K21.9 Gastro-esophageal reflux disease without esophagitis; F32.9 Major depressive disorder, single episode, unspecified; I51.7 Cardiomegaly; E78.5 Hyperlipidemia, unspecified; Z79.899 Other long term (current) drug therapy; Z90.49 Acquired absence of other specified parts of digestive tract; Z87.891 Personal history of nicotine dependence; Z88.1 Allergy status to other antibiotic agents; Z88.5 Allergy status to narcotic agent; Z88.2 Allergy status to sulfonamides
CPT/HCPCS: 96366 ×3; 96376 ×3; 96361; 96365; 96375; 99285; 36415; 93005; 93306; 80061; 80053; 82150; 83690; 84484; 85025; 85049 ×2; 85730 ×2; 81001; 87502; 71046; 74018; 74177; G0378 ×3; J1644 ×2; J2405 ×2; Q9967

== ENCOUNTER 2019-02-26 15:21 | Emergency (ER) | payer BC ==
[2019-02-26] MEDS ORDERED: SODIUM CHLORIDE 0.9% 500 ML 500 ML IV STA (15:31)
--- NOTE | 2019-02-26 15:53 | ED ---
Abdominal Pain HPI - General Chief Complaint: Abdominal Pain Stated Complaint: Abd pain,diarrhea Time Seen by Provider: 02/26/19 15:30 Source: patient Mode of arrival: ambulatory Limitations: no limitations - History of Present Illness Initial Comments: 53-year-old female with history of hussain fundoplication May 2018, appendectomy cholecystectomy partial hysterectomy presented for abdominal pain and diarrhea. Patient states that in May 2018 she had repair of a hiatal hernia, hussain fundoplication peformed by Dr. Aparicio, she states she has not had indigestions since, however, 3-4weeks ago she began having loose stools varying from once a day to up to 3-5x a day on average, which she has felt has causes a 22lb weight loss in the past month. Patient states she has also had epigastric pain that increases with palpation of the area. Patient states the diarrhea is brown. She states it can be foul-smelling. She states her last hospitalization was in October for influenza. Patient denies any recent antibiotic use. Patient denies recent travel. Patient denies fevers she denies melena hematochezia. Patient states yesterday she had her first episode of emesis. She states it is mostly "stomach acid". Patient denies chest pain, SOB, cough or URI symptoms. Patient denies any alleviating factors, or specific aggrevating factors. Denies radiation of the pain. Denies dysuria, urgency, frequency, hematuria. Denies jaundice or yellowing of the skin. Remaining ROS (-). Patient states that she could no longer tolerate the pain, denies any specific increase in the last week and presented to the ER for persistent symptoms. Upon arrival patient appears nontoxic. - Related Data Home Medications Medication Instructions Recorded Confirmed Celecoxib [CeleBREX] 100 mg PO HS 02/26/19 02/26/19 Previous Rx's Medication Instructions Recorded Dicyclomine [Bentyl] 10 mg PO Q6H PRN 7 Days #28 capsule 02/26/19 Ondansetron Odt [Zofran Odt] 4 mg PO Q8HR PRN 5 Days #15 tab 02/26/19 Allergies Allergy/AdvReac Type Severity Reaction Status Date / Time cephalexin monohydrate AdvReac Swelling Verified 02/26/19 15:48 [From Keflex] codeine AdvReac Itching Verified 02/26/19 15:48 erythromycin base AdvReac Swelling Verified 02/26/19 15:48 [Erythromycin Base] Sulfa (Sulfonamide AdvReac Swelling Verified 02/26/19 15:48 Antibiotics) Review of Systems ROS Statement: Those systems with pertinent positive or pertinent negative responses have been documented in the HPI. ROS Other: All systems not noted in ROS Statement are negative. Past Medical History Past Medical History: GERD/Reflux, Hyperlipidemia, Rheumatoid Arthritis (RA) Additional Past Medical History / Comment(s): enlarged L ventricle per patient History of Any Multi-Drug Resistant Organisms: None Reported Past Surgical History: Appendectomy, Cholecystectomy, Hysterectomy Additional Past Surgical History / Comment(s): Hussain Fundoplication Past Anesthesia/Blood Transfusion Reactions: Motion Sickness Past Psychological History: Depression Smoking Status: Never smoker Past Alcohol Use History: None Reported Past Drug Use History: None Reported - Past Family History Mother Family Medical History: No Reported History General Exam - General Exam Comments Initial Comments: General: The patient is awake and alert, in no distress, and does not appear acutely ill. Eye: +3 mm pupils are equal, round and reactive to light, extra-ocular movements are intact. No nystagmus. There is normal conjunctiva bilaterally. No signs of icterus. Ears, nose, mouth and throat: There are moist mucous membranes and no oral lesions. Neck: The neck is supple, there is no tenderness or JVD. Cardiovascular: There is a regular rate and rhythm. No murmur, rub or gallop is appreciated. Respiratory: Lungs are clear to auscultation, respirations are non-labored, breath sounds are equal. No wheezes, stridor, rales, or rhonchi. Gastrointestinal: Soft, non-distended, abdomen tender to palpation of the epigastric region-remaining abdomen non-tender, the abdomen without masses or organomegaly noted. There is no rebound or guarding present. No CVA tenderness. Bowel sounds are unremarkable. External hemorrhoid palpabable soft small, mildly tender at the 6 oclock position. No gross blood on rectal exam. No melena. Musculoskeletal: Normal ROM, no tenderness. Strength 5/5. Sensation intact. Radial and DP pulses equal bilaterally 2+. Neurological: A&O x 3. CN II-XII intact, There are no obvious motor or sensory deficits. Coordination appears grossly intact. Speech is normal. Skin: Skin is warm and dry and no rashes or lesions are noted. Psychiatric: Cooperative, appropriate mood & affect, normal judgment. Limitations: no limitations Course Vital Signs 02/26/19 02/26/19 15:24 19:39 Temperature 98.4 F 97.8 F Pulse Rate 78 58 L Respiratory 16 17 Rate Blood Pressure 138/85 126/74 O2 Sat by Pulse 96 96 Oximetry - Reevaluation(s) Reevaluation #1: Upon reevaluation after menstruation of Bentyl and Zofran patient states she is feeling better. She is requesting discharge home, as well as prescriptions for Bentyl and Zofran as this made her feel better. Medical Decision Making - Medical Decision Making Appearing 53-year-old female presenting for abdominal pain 4 weeks. Pt has history of hiatal hernia, with hussain fundoscopic repair in May 2018. On exam. Patient has epigastric pain. Patient denies any chest pain or shortness of b reath. EKG within normal limits. Troponin negative. Lipase within normal limits. Patient had relief with Bentyl and Zofran. CT findings are consistent possible enteritis. There is also noted irregularity of the distal esophagus concerning for possible lesion. I discussed this finding with the patient who will follow up outpatient for upper endoscopy. CT findings as well as laboratory studies and vital signs reviewed with my attending provider Dr. Nettles. At this time given patient has improvement of symptoms. No findings of peritoneal irritation on examination with stable laboratory studies and vital signs the patient is stable for discharge with outpatient primary care and gastroenterology follow-up. Return parameters were discussed at length patient verbalized understanding of return parameters. Patient was discharged appearing well with outpatient prescriptions for Bentyl and Zofran. - Lab Data Result diagrams: 02/26/19 16:10 02/26/19 16:10 Lab Results 02/26/19 02/26/19 02/26/19 Range/Units 16:10 16:10 16:10 WBC 7.8 (3.8-10.6) k/uL RBC 5.16 (3.80-5.40) m/uL Hgb 14.9 (11.4-16.0) gm/dL Hct 45.7 (34.0-46.0) % MCV 88.5 (80.0-100.0) fL MCH 28.8 (25.0-35.0) pg MCHC 32.6 (31.0-37.0) g/dL RDW 14.0 (11.5-15.5) % Plt Count 276 (150-450) k/uL Neutrophils % 52 % Lymphocytes % 31 % Monocytes % 7 % Eosinophils % 6 % Basophils % 1 % Neutrophils # 4.0 (1.3-7.7) k/uL Lymphocytes # 2.4 (1.0-4.8) k/uL Monocytes # 0.5 (0-1.0) k/uL Eosinophils # 0.4 (0-0.7) k/uL Basophils # 0.1 (0-0.2) k/uL Sodium 141 (137-145) mmol/L Potassium 4.0 (3.5-5.1) mmol/L Chloride 108 H (98-107) mmol/L Carbon Dioxide 25 (22-30) mmol/L Anion Gap 8 mmol/L BUN 13 (7-17) mg/dL Creatinine 0.75 (0.52-1.04) mg/dL Est GFR (CKD-EPI)AfAm >90 (>60 ml/min/1.73 sqM) Est GFR (CKD-EPI)NonAf >90 (>60 ml/min/1.73 sqM) Glucose 88 (74-99) mg/dL Calcium 9.5 (8.4-10.2) mg/dL Total Bilirubin 0.3 (0.2-1.3) mg/dL AST 20 (14-36) U/L ALT 23 (9-52) U/L Alkaline Phosphatase 76 (38-126) U/L Troponin I <0.012 (0.000-0.034) ng/mL Total Protein 7.0 (6.3-8.2) g/dL Albumin 3.9 (3.5-5.0) g/dL Amylase 63 (30-110) U/L Lipase 178 (23-300) U/L Urine Color Urine Appearance (Clear) Urine pH (5.0-8.0) Ur Specific Widen (1.001-1.035) Urine Protein (Negative) Urine Glucose (UA) (Negative) Urine Ketones (Negative) Urine Blood (Negative) Urine Nitrite (Negative) Urine Bilirubin (Negative) Urine Urobilinogen (<2.0) mg/dL Ur Leukocyte Esterase (Negative) Stool Occult Blood (Negative) 02/26/19 02/26/19 Range/Units 16:10 17:00 WBC (3.8-10.6) k/uL RBC (3.80-5.40) m/uL Hgb (11.4-16.0) gm/dL Hct (34.0-46.0) % MCV (80.0-100.0) fL MCH (25.0-35.0) pg MCHC (31.0-37.0) g/dL RDW (11.5-15.5) % Plt Count (150-450) k/uL Neutrophils % % Lymphocytes % % Monocytes % % Eosinophils % % Basophils % % Neutrophils # (1.3-7.7) k/uL Lymphocytes # (1.0-4.8) k/uL Monocytes # (0-1.0) k/uL Eosinophils # (0-0.7) k/uL Basophils # (0-0.2) k/uL Sodium (137-145) mmol/L Potassium (3.5-5.1) mmol/L Chloride (98-107) mmol/L Carbon Dioxide (22-30) mmol/L Anion Gap mmol/L BUN (7-17) mg/dL Creatinine (0.52-1.04) mg/dL Est GFR (CKD-EPI)AfAm (>60 ml/min/1.73 sqM) Est GFR (CKD-EPI)NonAf (>60 ml/min/1.73 sqM) Glucose (74-99) mg/dL Calcium (8.4-10.2) mg/dL Total Bilirubin (0.2-1.3) mg/dL AST (14-36) U/L ALT (9-52) U/L Alkaline Phosphatase (38-126) U/L Troponin I (0.000-0.034) ng/mL Total Protein (6.3-8.2) g/dL Albumin (3.5-5.0) g/dL Amylase (30-110) U/L Lipase (23-300) U/L Urine Color Light Yellow Urine Appearance Clear (Clear) Urine pH 5.5 (5.0-8.0) Ur Specific Widen 1.010 (1.001-1.035) Urine Protein Negative (Negative) Urine Glucose (UA) Negative (Negative) Urine Ketones Negative (Negative) Urine Blood Negative (Negative) Urine Nitrite Negative (Negative) Urine Bilirubin Negative (Negative) Urine Urobilinogen <2.0 (<2.0) mg/dL Ur Leukocyte Esterase Negative (Negative) Stool Occult Blood Negative (Negative) Disposition Clinical Impression: Diarrhea, Epigastric pain, Nausea Disposition: HOME SELF-CARE Condition: Good Instructions (If sedation given, give patient instructions): Abdominal Pain (ED) Additional Instructions: Please use medication as discussed. Please follow-up with family doctor in the next 2 day, please review with PCP CT results again. Please follow-up with GI physician for upper endoscopy as discussed as well as colonoscopy. Please return to emergency room if the symptoms increase or worsen or for any other concerns. Prescriptions: Dicyclomine [Bentyl] 10 mg PO Q6H PRN 7 Days #28 capsule PRN Reason: Abdominal Distention Ondansetron Odt [Zofran Odt] 4 mg PO Q8HR PRN 5 Days #15 tab PRN Reason: Nausea Is patient prescribed a controlled substance at d/c from ED?: No Referrals: Bro Cristina MD [Primary Care Provider] - 1-2 days Agatha Agarwal MD [STAFF PHYSICIAN] - 1-2 days Time of Disposition: 19:20
[2019-02-26] MEDS ORDERED: MORPHINE SULFATE 2 MG/ML SYRINGE IVP STA (15:54)
[2019-02-26 16:24] LABS: Basophils # (A) 0.1 k/uL (0-0.2); Basophils % (A) 1 %; Eosinophils # (A) 0.4 k/uL (0-0.7); Eosinophils % (A) 6 %; HCT 45.7 % (34.0-46.0); HGB 14.9 gm/dL (11.4-16.0); Lymphocytes # (A) 2.4 k/uL (1.0-4.8); Lymphocytes % (A) 31 %; MCH 28.8 pg (25.0-35.0); MCHC 32.6 g/dL (31.0-37.0); MCV 88.5 fL (80.0-100.0); Mean Platelet Volume 7.3; Monocytes # (A) 0.5 k/uL (0-1.0); Monocytes % (A) 7 %; Neutrophils % (A) 52 %; Platelet Count 276 k/uL (150-450); RBC 5.16 m/uL (3.80-5.40); WBC 7.8 k/uL (3.8-10.6)
[2019-02-26 16:40] LABS: ALT 23 U/L (9-52); AST 20 U/L (14-36); African American GFR (CKD) >90 (>60 ml/min/1.73 sqM); Albumin 3.9 g/dL (3.5-5.0); Alkaline Phosphatase 76 U/L (38-126); Amylase 63 U/L (30-110); Anion Gap 8 mmol/L; Blood Urea Nitrogen 13 mg/dL (7-17); Calcium 9.5 mg/dL (8.4-10.2); Carbon Dioxide 25 mmol/L (22-30); Chloride 108 mmol/L (98-107); Glucose 88 mg/dL (74-99); Non-African American GFR(CKD) >90 (>60 ml/min/1.73 sqM); Sodium 141 mmol/L (137-145); Total Bilirubin 0.3 mg/dL (0.2-1.3)
--- NOTE | 2019-02-26 17:07 | US ---
EXAMINATION TYPE: US abdomen limited DATE OF EXAM: 02/26/2019 COMPARISON: NONE CLINICAL HISTORY: epigastric pain. patient has epigastric pain, h/o hiatal hernia and surgical proced ure of hussain fundoplication, cholecystectomy EXAM MEASUREMENTS: Liver Length: 14.5 cm Gallbladder Wall: Surgically absent CBD: 0.8 cm Right Kidney: 8.7 x 3.6 x 4.1cm Pancreas: obscured by bowel gas Liver: difficult to penetrate, intercostal imaging Gallbladder: Surgically absent Evidence for sonographic Duran's sign: no CBD: upper limits of normal for postcholecystectomy Right Kidney: wnl IMPRESSION: 1. Findings involving the liver are nonspecific and be seen with hepatic steatosis, hepatitis or diff use hepatocellular disease.
[2019-02-26 17:10] LABS: Appearance,Urine Clear (Clear); Bilirubin,Urine Negative (Negative); Blood,Urine Negative (Negative); Color,Urine Light Yellow; Glucose,Urine (UA) Negative (Negative); Ketones,Urine Negative (Negative); Leukocyte Esterase,Urine Negative (Negative); Nitrite,Urine Negative (Negative); PH, Urine 5.5 (5.0-8.0); Protein,Urine Negative (Negative); Urobilinogen,Urine <2.0 mg/dL (<2.0)
--- NOTE | 2019-02-26 17:44 | CT ---
EXAMINATION TYPE: CT abdomen pelvis w con DATE OF EXAM: 02/26/2019 COMPARISON: 11/08/2018 HISTORY: ABDOMINAL PAIN AND DIARRHEA X3 WEEKS CT DLP: 973 mGycm Automated exposure control for dose reduction was used. CONTRAST: CT scan of the abdomen pelvis is performed with IV Contrast, patient injected with 100 mL of Isovue 3 00. FINDINGS- LUNG BASES-subsegmental changes at both lung bases suggestive of atelectasis.. LIVER/GB-mild intrahepatic central biliary dilation with postcholecystectomy changes.. PANCREAS- No gross abnormality is seen. SPLEEN- No gross abnormality is seen. ADRENALS- No gross abnormality is seen. KIDNEYS/BLADDER- no hydronephrosis nephrolithiasis or renal mass. BOWEL-small hiatal hernia with previous surgery involving the epigastrium. Correlate clinically. Thic kening of the distal esophagus can be evaluated with direct visualization. Prominent small bowel loop s in the upper abdomen. LYMPH NODES- No greater than 1cm abdominal or pelvic lymph nodes areappreciated. OSSEOUS STRUCTURES-degenerative change of the spine. OTHER- aorta of normal caliber. IMPRESSION- 1. Prominent small bowel loops in the upper abdomen is nonspecific could been the basis of a localize d ileus or enteritis. 2. Nonvisualization the appendix. No inflammatory changes in the right lower quadrant. 3. Postcholecystectomy changes. 4. There is be evidence of previous surgery noted involving the epigastrium with a small hiatal herni a. There is wall thickening could be on the basis of esophagitis or mucosal lesion and direct visuali zation could BE obtained as clinically warranted.
[2019-02-26] MEDS ORDERED: DICYCLOMINE 10 MG CAP PO STA (18:07)
[2019-02-26] MEDS ORDERED: FAMOTIDINE 20 MG/2 ML VIAL IV STA (18:07)
[2019-02-26] MEDS ORDERED: ONDANSETRON 4 MG/2 ML VIAL IVP STA (18:08)
[2019-02-26] MEDS ORDERED: SODIUM CHLORIDE 0.9% 1,000 ML IV SCH (18:15)
[2019-02-26 19:40] VITALS: BP 126/74; PULSE 58; RESP 17; TEMP 97.8
== END 2019-02-26 19:40 | disposition home or self-care (01) ==
LOC: EC 15:21
DX: R10.13 Epigastric pain (principal); R19.7 Diarrhea, unspecified; R11.0 Nausea; M06.9 Rheumatoid arthritis, unspecified; Z79.899 Other long term (current) drug therapy; Z88.1 Allergy status to other antibiotic agents; Z88.2 Allergy status to sulfonamides; Z88.5 Allergy status to narcotic agent; Z90.89 Acquired absence of other organs; Z90.49 Acquired absence of other specified parts of digestive tract; Z90.710 Acquired absence of both cervix and uterus
CPT/HCPCS: 99284; 96374; 96375 ×2; 96361 ×3; 36415; 93005; 80053; 82150; 83690; 84484; 85025; 82272; 81003; 76705; 74177; J2405; J2270; Q9967

== ENCOUNTER 2019-03-05 12:18 | Day surgery (SDC) | payer BC ==
[2019-03-01 08:46] VITALS: BMI 27.8
[~2019-03-05 12:18] MED LIST changes: -CLINDAMYCIN 900 MG in DEXTROSE 5% IN WATER 50 ML IVPB ONE; -DEXAMETHASONE SOD PHOSPHATE 10 MG/ML 1 ML VIAL IV ONE; -GENTAMICIN 400 MG in SODIUM CHLORIDE 0.9% 100 ML IVPB ONE; -HEPARIN SODIUM,PORCINE 5,000 UNIT/ML 1 ML VIAL SQ ONE; +LIDOCAINE 1% 20 ML VIAL (10MG/ML) FOR IV START INTRADERMA PRN; -MIDAZOLAM 2 MG/2 ML VIAL IV PRN; -ONDANSETRON 4 MG/2 ML VIAL IVP ONE; -SCOPOLAMINE 1.5MG/72HR PATCH TRANSDERM ONE; -fentaNYL (PF) 50 MCG/ML 2 ML AMP IV PRN
[2019-03-05 12:49] VITALS: RESP 16; TEMP 97.9
[2019-03-05] MEDS ORDERED: LIDOCAINE 1% INJ 10MG/ML (20 ML MDV) ONE (13:00)
[2019-03-05] MEDS ORDERED: PROPOFOL 10 MG/ML 20 ML VIAL IV ONE (13:00)
[2019-03-05] MEDS ORDERED: GLYCOPYRROLATE 0.2 MG/ML 2 ML VIAL ONE (13:00)
[2019-03-05] MEDS ORDERED: ONDANSETRON 4 MG/2 ML VIAL IVP ONE (13:43)
[2019-03-05 13:57] VITALS: BP 165/96; PULSE 77
--- NOTE | 2019-03-05 15:31 | P.PCN ---
Date of Procedure: 03/05/19 Preoperative Diagnosis: Nausea, weight loss, change in bowel habits, family history of colon cancer Postoperative Diagnosis: Nausea, weight loss, change in bowel habits, family history of colon cancer, erosive esophagitis, gastritis, hiatal hernia, colon polyp Procedure(s) Performed: EGD with biopsy, colonoscopy with polypectomy Anesthesia: MAC Surgeon: Siria Crane Pathology: other (Esophagus, antrum, cecum) Condition: stable Disposition: PACU Description of Procedure: The patient is a 53-year-old female that had a four-week history of abdominal pain, nausea, weight loss, change in bowel habits. She's taken to the endoscopy suite were gastroscope is passed per mouth to the third and fourth portions of the duodenum. The pharynx unremarkable. The upper esophagus is without evidence of esophagitis or mass lesion. The distal esophagus shows several linear areas of erosive esophagitis. There also appears to be some possible Tony's change. Cold biopsies were obtained. In the antrum she has gastritis with some early linear erosions. Cold biopsy was obtained there to rule out H. pylori. Otherwise the pylorus and duodenum are without evidence of polyp, mass lesion, other mucosal abnormality. The villous pattern of the duodenum appeared unremarkable. She has a small hiatal hernia on retroflexion of the scope. She is then repositioned in a colonoscope is passed per rectum to the cecum. The sigmoid colon is rather tortuous. There is a pedunculated polyp in the cecum which is removed with polypectomy snare. Otherwise the colon was without evidence of any other polyps, mass lesion, ulcer, other mucosal abnormality. She tolerated the procedure without difficulty and is taken recovery room in satisfactory condition. I'll start her on twice a day omeprazole. We'll call with the report of the biopsies. I'll see her in the office in 1 month. Further recommendations to follow. Plan - Discharge Summary Discharge Rx Participant: No New Discharge Prescriptions: New Omeprazole [PriLOSEC] 20 mg PO AC-BID 30 Days #60 cap No Action Celecoxib [CeleBREX] 100 mg PO HS Dicyclomine [Bentyl] 10 mg PO Q6H PRN 7 Days #28 capsule PRN Reason: Abdominal Distention Ondansetron Odt [Zofran Odt] 4 mg PO Q8HR PRN 5 Days #15 tab PRN Reason: Nausea Acetaminophen [Tylenol] 1,000 mg PO Q4-6H PRN PRN Reason: Pain Discharge Medication List Celecoxib [CeleBREX] 100 mg PO HS 02/26/19 [History] Dicyclomine [Bentyl] 10 mg PO Q6H PRN 7 Days #28 capsule 02/26/19 [Rx] Ondansetron Odt [Zofran Odt] 4 mg PO Q8HR PRN 5 Days #15 tab 02/26/19 [Rx] Acetaminophen [Tylenol] 1,000 mg PO Q4-6H PRN 03/01/19 [History] Omeprazole [PriLOSEC] 20 mg PO AC-BID 30 Days #60 cap 03/05/19 [Rx] Follow up Appointment(s)/Referral(s): Siria Crane DO [Doctor of Osteopathic Medicine] - 4 Weeks Patient Instructions/Handouts: *Surgery [facility] - (Anesthesia) Endoscopy Discharge Instructions, Colorectal Polyps (DC), Corrosive Esophagitis (DC), Colonoscopy (DC), Upper Endoscopy (DC) Discharge Disposition: HOME SELF-CARE
== END 2019-03-05 14:22 | disposition home or self-care (01) ==
LOC: ORWHC2ENDO 12:18
PROVIDERS: ATTEND Surgery
DX: D12.0 Benign neoplasm of cecum (principal); K29.70 Gastritis, unspecified, without bleeding; K22.70 Barrett's esophagus without dysplasia; E78.5 Hyperlipidemia, unspecified; F32.9 Major depressive disorder, single episode, unspecified; K21.0 Gastro-esophageal reflux disease with esophagitis; K44.9 Diaphragmatic hernia without obstruction or gangrene; G43.909 Migraine, unspecified, not intractable, without status migrainosus; M06.9 Rheumatoid arthritis, unspecified; R63.4 Abnormal weight loss; Z80.0 Family history of malignant neoplasm of digestive organs; F17.210 Nicotine dependence, cigarettes, uncomplicated; Z88.1 Allergy status to other antibiotic agents; Z88.5 Allergy status to narcotic agent; Z88.2 Allergy status to sulfonamides; Z90.49 Acquired absence of other specified parts of digestive tract; Z79.899 Other long term (current) drug therapy; Z90.711 Acquired absence of uterus with remaining cervical stump; Z82.49 Family history of ischemic heart disease and other diseases of the circulatory system; Z81.8 Family history of other mental and behavioral disorders
CPT/HCPCS: 88305; 45385; 43239; J2405; J2001; J2704

== ENCOUNTER 2019-07-06 16:47 | Emergency (ER) | payer BC ==
[2019-07-06 17:08] VITALS: BP 115/85; PULSE 75; RESP 18; TEMP 97.8
--- NOTE | 2019-07-06 18:17 | ED ---
General Adult HPI - General Chief complaint: Extremity Injury, Lower Stated complaint: Left Leg Pain/Swelling Time Seen by Provider: 07/06/19 17:39 Source: patient, RN notes reviewed, old records reviewed Mode of arrival: ambulatory Limitations: no limitations - History of Present Illness Initial comments: 54-year-old female patient with past history significant for rheumatoid arthritis presents to the chief complaint of left calf pain for 2 days. 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 Patient denies any chest pain or shortness of breath. Patient denies any other complaints at this time. Wishes to be checked for a blood clot in her leg. Systemic: Pt denies fatigue, fever/chills, rash. Pt denies weakness, night sweats, weight loss. Neuro: Pt denies headache, visual disturbances, syncope or pre-syncope. HEENT: Pt denies ocular discharge or irritation, otalgia, rhinorrhea, pharyngitis or notable lymphadenopathy. Cardiopulmonary: Pt denies chest pain, SOB, heart palpitations, dyspnea on exertion. Abdominal/GI: Pt denies abdominal pain, n/v/d. : Pt denies dysuria, burning w/ urination, frequency/urgency. Denies new onset urinary or bowel incontinence. MSK: Pt denies myalgia, loss of strength or function in extremities. Neuro: Pt denies new onset weakness, paresthesias. - Related Data Home Medications Medication Instructions Recorded Confirmed Celecoxib [CeleBREX] 100 mg PO HS 02/26/19 03/01/19 Acetaminophen [Tylenol] 1,000 mg PO Q4-6H PRN 03/01/19 03/01/19 Previous Rx's Medication Instructions Recorded Dicyclomine [Bentyl] 10 mg PO Q6H PRN 7 Days #28 capsule 02/26/19 Ondansetron Odt [Zofran Odt] 4 mg PO Q8HR PRN 5 Days #15 tab 02/26/19 Omeprazole [PriLOSEC] 20 mg PO AC-BID 30 Days #60 cap 03/05/19 Allergies Allergy/AdvReac Type Severity Reaction Status Date / Time cephalexin monohydrate AdvReac Swelling Verified 07/06/19 17:06 [From Keflex] codeine AdvReac Itching Verified 12/07/19 17:06 erythromycin base AdvReac Swelling Verified 07/06/19 17:06 [Erythromycin Base] Sulfa (Sulfonamide AdvReac Swelling Verified 07/06/19 17:06 Antibiotics) Review of Systems ROS Statement: Those systems with pertinent positive or pertinent negative responses have been documented in the HPI. ROS Other: All systems not noted in ROS Statement are negative. Past Medical History Past Medical History: GERD/Reflux, Hyperlipidemia, Rheumatoid Arthritis (RA) Additional Past Medical History / Comment(s): enlarged L ventricle per patient History of Any Multi-Drug Resistant Organisms: None Reported Past Surgical History: Appendectomy, Cholecystectomy, Hysterectomy Additional Past Surgical History / Comment(s): Claudio Fundoplication Past Anesthesia/Blood Transfusion Reactions: Motion Sickness Additional Past Anesthesia/Blood Transfusion Reaction / Comment(s): no hx blood transfusion Past Psychological History: Anxiety, Depression Smoking Status: Current every day smoker Past Alcohol Use History: None Reported Past Drug Use History: None Reported - Past Family History Mother Family Medical History: No Reported History Father Family Medical History: No Reported History Additional Family Medical History / Comment(s): father's dad had colon CA General Exam - General Exam Comments Initial Comments: Constitutional: NAD, AOX3, Pt has pleasant affect. HEENT: NC/AT, trachea midline, neck supple, no lymphadenopathy. Posterior pharynx non erythematous, without exudates. External ears appear normal, without discharge. Mucous membranes moist. Eyes PERRLA, EOM intact. There is no scleral icterus. No pallor noted. Cardiopulmonary: RRR, no murmurs, rubs or gallops, no JVD noted. Lungs CTAB in anterior and posterior nazario. No peripheral edema. Abdominal exam: Abdomen soft and non-distended. Abdomen non-tender to palpation in all 4 quadrants. Bowel sounds active in LLQ. No hepatosplenomegaly. No ecchymosis Neuro: CN II-XII grossly intact. No nuchal rigidity. No raccon eyes, no alvarado sign, no hemotympanum. No cervical spinal tenderness. MSK: Left calf mild tenderness to palpation. Left popliteal region tender to palpation. No skin changes. Homans sign is negative. Right calf nontender. Homans sign is negative. Distal pulses intact and equal. homans sign negative bilaterally. Posterior tibialis and radial pulse +2 bilaterally. Sensation intact in upper and lower extremities. Full active ROM in upper and lower ext remities, 5/5 stregnth. Limitations: no limitations Course Vital Signs 07/06/19 17:06 Temperature 97.8 F Pulse Rate 75 Respiratory 18 Rate Blood Pressure 115/85 O2 Sat by Pulse 96 Oximetry Medical Decision Making - Medical Decision Making 54-year-old female patient with past history significant for rheumatoid arthritis presents to the chief complaint of left calf pain for 2 days. 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 Patient denies any chest pain or shortness of breath. Patient denies any other complaints at this time. Wishes to be checked for a blood clot in her leg. Patient vital signs stable, afebrile. Physical exam displayed: Posterior calf mild tenderness to palpation. Venous duplex ultrasound displayed no evidence of DVT. Hyperchromic structure in left popliteal fossa made her present lymph node of lipoma. Patient pain is likely musculoskeletal in nature. Patient reports that she walks around at work is on her feet constantly and has been very busy in the holiday season. Patient discharged with follow up with primary care provider and orthopedic consult. Case discussed with Dr. Pettit. Disposition Clinical Impression: Strain of calf muscle Disposition: HOME SELF-CARE Condition: Stable Instructions (If sedation given, give patient instructions): Musculoskeletal Pain (ED) Additional Instructions: Follow-up with primary care provider tomorrow. Follow-up with orthopedic consult tomorrow. Return to ER if condition worsens in any way. Is patient prescribed a controlled substance at d/c from ED?: No Referrals: Bro Cristina MD [Primary Care Provider] - 1-2 days Demar Roca DO [Doctor of Osteopathic Medicine] - 1-2 days
--- NOTE | 2019-07-06 19:22 | US ---
EXAMINATION TYPE: US venous doppler duplex LE LT DATE OF EXAM: 07/06/2019 7:10 PM COMPARISON: NONE CLINICAL HISTORY: Calf pain. SIDE PERFORMED: Left TECHNIQUE: The lower extremity deep venous system is examined utilizing real time linear array sonog malinda with graded compression, doppler sonography and color-flow sonography. VESSELS IMAGED: External Iliac Vein (EIV) Common Femoral Vein Deep Femoral Vein Greater Saphenous Vein * Femoral Vein Popliteal Vein Small Saphenous Vein * Proximal Calf Veins (* superficial vessels) Hyperechoic circular structure in left pop fossa at lump measuring 0.6 x 0.9cm Grayscale, color doppler, spectral doppler imaging performed of the deep veins of the lower extremiti es. There is normal flow, compressibility, vascular waveforms. IMPRESSION: 1. No evidence for left lower extremity DVT. 2. Hyperechoic structure in the left popliteal fossa may represent lymph node or lipoma.
== END 2019-07-06 20:00 | disposition home or self-care (01) ==
LOC: EC 16:47
DX: S86.912A Strain of unspecified muscle(s) and tendon(s) at lower leg level, left leg, initial encounter (principal); M06.9 Rheumatoid arthritis, unspecified; F17.200 Nicotine dependence, unspecified, uncomplicated; Z79.1 Long term (current) use of non-steroidal anti-inflammatories (NSAID); Z88.1 Allergy status to other antibiotic agents; Z88.2 Allergy status to sulfonamides; Z88.5 Allergy status to narcotic agent; X58.XXXA Exposure to other specified factors, initial encounter
CPT/HCPCS: 99284

== ENCOUNTER 2021-09-21 10:36 | Emergency (ER) | payer OTHER, BC ==
--- NOTE | 2021-09-21 11:12 | ED ---
General Adult HPI - General Chief complaint: Extremity Injury, Lower Stated complaint: [facility] - lt knee injury Time Seen by Provider: 09/21/21 10:43 Source: patient, RN notes reviewed Mode of arrival: ambulatory Limitations: no limitations - History of Present Illness Initial comments: 56-year-old female presents emergency Department with chief complaint of left knee pain. She states that she slipped at work falling directly onto her knee. She has pain just below her patella of her left knee she states there is bruising, throbbing pain. She had pain all night it is increased with movement and weightbearing. Patient states that she had no prior knee problems denies any head injury no other muscle skeletal injury from her fall. - Related Data Home Medications Medication Instructions Recorded Confirmed Celecoxib [CeleBREX] 100 mg PO HS 02/26/19 03/01/19 Acetaminophen [Tylenol] 1,000 mg PO Q4-6H PRN 03/01/19 03/01/19 Previous Rx's Medication Instructions Recorded Dicyclomine [Bentyl] 10 mg PO Q6H PRN 7 Days #28 capsule 02/26/19 Ondansetron Odt [Zofran Odt] 4 mg PO Q8HR PRN 5 Days #15 tab 02/26/19 Omeprazole [PriLOSEC] 20 mg PO AC-BID 30 Days #60 cap 03/05/19 Allergies Allergy/AdvReac Type Severity Reaction Status Date / Time cephalexin monohydrate AdvReac Swelling Verified 09/21/21 10:38 [From Keflex] codeine AdvReac Itching Verified 09/21/21 10:38 erythromycin base AdvReac Swelling Verified 09/21/21 10:38 [Erythromycin Base] Sulfa (Sulfonamide AdvReac Swelling Verified 09/21/21 10:38 Antibiotics) Review of Systems ROS Statement: Those systems with pertinent positive or pertinent negative responses have been documented in the HPI. ROS Other: All systems not noted in ROS Statement are negative. Past Medical History Past Medical History: GERD/Reflux, Hyperlipidemia, Rheumatoid Arthritis (RA) Additional Past Medical History / Comment(s): enlarged L ventricle per patient, low blood pressure, migraines History of Any Multi-Drug Resistant Organisms: None Reported Past Surgical History: Appendectomy, Cholecystectomy, Hysterectomy Additional Past Surgical History / Comment(s): Claudio Fundoplication Past Anesthesia/Blood Transfusion Reactions: Motion Sickness Additional Past Anesthesia/Blood Transfusion Reaction / Comment(s): no hx blood transfusion Past Psychological History: Anxiety, Depression Smoking Status: Current every day smoker Past Alcohol Use History: None Reported Past Drug Use History: None Reported - Past Family History Mother Family Medical History: No Reported History Father Family Medical History: No Reported History Additional Family Medical History / Comment(s): father's dad had colon CA General Exam Limitations: no limitations General appearance: alert, in no apparent distress Head exam: Present: atraumatic, normocephalic, normal inspection Eye exam: Present: normal appearance, PERRL, EOMI. Absent: scleral icterus, conjunctival injection, periorbital swelling ENT exam: Present: normal exam, normal oropharynx, mucous membranes moist Neck exam: Present: normal inspection, full ROM. Absent: tenderness, meningismus, lymphadenopathy Respiratory exam: Present: normal lung sounds bilaterally. Absent: respiratory distress, wheezes, rales, rhonchi, stridor Cardiovascular Exam: Present: regular rate, normal rhythm, normal heart sounds. Absent: systolic murmur, diastolic murmur, rubs, gallop, clicks Extremities exam: Present: other (Left knee over the patellar tuberosity with tibia there is tenderness, ecchymotic area mild swelling there is mild discomfort with range of motion.) Neurological exam: Present: alert Skin exam: Present: warm, dry, intact, normal color. Absent: rash Course Vital Signs 09/21/21 10:40 Temperature 97.6 F Pulse Rate 76 Respiratory 16 Rate Blood Pressure 122/74 O2 Sat by Pulse 98 Oximetry Medical Decision Making - Medical Decision Making X-ray CT reviewed no definite fracture. Patient has contusion. Patient we discharged him stable condition return parameters were discussed. Disposition Clinical Impression: Contusion of left knee Disposition: HOME SELF-CARE Condition: Stable Instructions (If sedation given, give patient instructions): Knee Pain (ED) Additional Instructions: Please return to the Emergency Department if symptoms worsen or any other concerns. Is patient prescribed a controlled substance at d/c from ED?: No Referrals: Bro Cristina MD [Primary Care Provider] - 1-2 days Time of Disposition: 12:20
--- NOTE | 2021-09-21 11:27 | XR ---
Left knee HISTORY: Trauma and pain 3 views the left knee Bone mineralization, joint spaces and alignment are maintained. No evident joint effusion. Vague punc wade density present overlying the patellar tendon the lateral view is indeterminate. IMPRESSION: No fracture or dislocation. Additional findings above.
--- NOTE | 2021-09-21 12:10 | CT ---
EXAMINATION TYPE: CT knee LT wo con DATE OF EXAM: 09/21/2021 COMPARISON: X-ray performed earlier same day HISTORY: Fall yesterday. Difficulty walking. CT DLP: 117.9 mGycm Automated exposure control for dose reduction was used. TECHNIQUE: Multiplanar CT scan of the left knee without IV contrast administration, with 3-D reconstr uction images. FINDINGS: Minimal soft tissue calcification/bone fragments are seen at the superior aspect of the left fibular head, likely representing tiny enthesophytes. Slightly sharp medial tibial spine with slight narrowin g of the patellofemoral compartment, otherwise no significant bony degenerative changes of the left k nee joint. Minimal depression/irregularity of the anterior aspect of the distal femoral metaphysis at the level of the patellofemoral compartment, likely degenerative. No definite acute fracture line identified ot herwise. No patellar dislocation or significant subluxation. No sizable joint effusion. Mild subcutan eous infrapatellar swelling/edema, please correlate clinically. IMPRESSION: The described irregularity/subtle depression at that the anterior aspect of the distal femoral metaph ysis at the level of the patellofemoral compartment is likely degenerative. No definite acute fractur e line identified otherwise. No sizable joint effusion. Incidental findings as described above.
[2021-09-21 13:01] VITALS: BP 111/70; PULSE 56; RESP 20; TEMP 98.1
== END 2021-09-21 13:00 | disposition home or self-care (01) ==
LOC: EC 10:36
DX: S80.02XA Contusion of left knee, initial encounter (principal); E78.5 Hyperlipidemia, unspecified; K21.9 Gastro-esophageal reflux disease without esophagitis; M06.9 Rheumatoid arthritis, unspecified; F41.9 Anxiety disorder, unspecified; F32.A Depression, unspecified; F17.200 Nicotine dependence, unspecified, uncomplicated; Z90.49 Acquired absence of other specified parts of digestive tract; Z88.1 Allergy status to other antibiotic agents; Z79.899 Other long term (current) drug therapy; Z88.2 Allergy status to sulfonamides; W01.0XXA Fall on same level from slipping, tripping and stumbling without subsequent striking against object, initial encounter; Y99.0 Civilian activity done for income or pay
CPT/HCPCS: 99284

== ENCOUNTER → 2021-10-14 | Outpatient (CLI) | payer OTHER ==
--- NOTE | 2021-10-14 13:39 | US ---
EXAMINATION TYPE: US venous doppler duplex LE LT DATE OF EXAM: 10/14/2021 1:32 PM COMPARISON: NONE CLINICAL HISTORY: S80.02XO CONTUSION LT KNEE M79.605 PAIN IN LT LEG. SIDE PERFORMED: Left TECHNIQUE: The lower extremity deep venous system is examined utilizing real time linear array sonog malinda with graded compression, doppler sonography and color-flow sonography. VESSELS IMAGED: Common Femoral Vein Deep Femoral Vein Greater Saphenous Vein * Femoral Vein Popliteal Vein Small Saphenous Vein * Proximal Calf Veins (* superficial vessels) Left Leg: Negative for DVT IMPRESSION: No evidence for DVT
== END | disposition home or self-care (01) ==
LOC: RADUSWWP 12:55
PROVIDERS: ATTEND Emergency Medicine
DX: S80.02XD Contusion of left knee, subsequent encounter (principal); X58.XXXD Exposure to other specified factors, subsequent encounter

== ENCOUNTER → 2021-10-22 | Outpatient (CLI) | payer OTHER ==
[2021-10-22 11:46] LABS: Glucose 2 Hour 41 mg/dL
== END | disposition home or self-care (01) ==
LOC: LABWHC1 07:55
PROVIDERS: ATTEND Family Medicine
DX: E27.1 Primary adrenocortical insufficiency (principal); Z79.899 Other long term (current) drug therapy
CPT/HCPCS: 36415; 82024; 82533; 82947; 82950

== ENCOUNTER → 2021-11-09 | Outpatient (CLI) | payer OTHER ==
--- NOTE | 2021-11-10 15:50 | MR ---
EXAMINATION TYPE: MR abdomen wo/w con DATE OF EXAM: 11/09/2021 COMPARISON: CT abdomen and pelvis February 26, 2019 HISTORY: adrenal insufficiency CONTRAST: Standard multiplanar, multisequence MRI departmental protocol images were obtained without contrast a nd with 8 mL intravenous Gadavist gadolinium contrast. Imaging performed of the abdomen focusing on the bilateral adrenal glands. FINDINGS: Adrenals: Adrenal glands remain normal in size. No new enhancing masses are evident. Other: Lung bases are grossly clear. No pleural or pericardial effusion is seen. Small to moderate si ze hiatal hernia redemonstrated despite attempted surgery at level of diaphragmatic hiatus. Liver is normal in size. Gallbladder is surgically absent. The spleen and pancreas appear within normal limits . No concerning renal mass or hydronephrosis. No suspicious bowel dilatation. Visualized osseous stru ctures are intact. IMPRESSION: No new focal adrenal masses. No significant change from most recent prior CT.
== END | disposition home or self-care (01) ==
LOC: RADMRIMAIN 08:32
PROVIDERS: ATTEND Family Medicine
DX: E27.40 Unspecified adrenocortical insufficiency (principal)
CPT/HCPCS: 74183; A9585

== ENCOUNTER → 2021-12-08 | Outpatient (CLI) | payer OTHER ==
--- NOTE | 2021-12-09 07:08 | MR ---
EXAMINATION TYPE: MR pituitary wo/w con DATE OF EXAM: 12/08/2021 COMPARISON: NONE HISTORY: Adrenal insufficiency. TECHNIQUE: Multiplanar, multisequence images of the brain and brainstem is performed without and with IV contras t, utilizing 8 mL intravenous Gadavist . Pituitary gland protocol. FINDINGS: Pituitary stalk shows normal enhancement in the midline coronal image 13. Pituitary gland h as concave superior border. There is no abnormal enlargement to suggest macroadenoma. The suprasellar cistern is maintained. Sagittal postcontrast images show 2 mm area of rounded nonenhancement slight posterior aspect anterior to the pituitary stalk seen best sagittal images 7 through 9 this does not reproduce as well on coronal images where it appears to correspond to suprasellar CSF. Microadenoma a t this level cannot be entirely excluded. Craniocervical junction is maintained. No gross hydrocephalus. Optic chiasm is not effaced. Adjacent carotid flow voids are preserved. IMPRESSION: As above.
== END | disposition home or self-care (01) ==
LOC: RADMRIMAIN 17:50
PROVIDERS: ATTEND Family Medicine
DX: E27.40 Unspecified adrenocortical insufficiency (principal)
CPT/HCPCS: 70553; A9585

== ENCOUNTER → 2022-01-17 | Outpatient (CLI) | payer MEDICAID ==
--- NOTE | 2022-01-18 00:27 | MR ---
EXAMINATION TYPE: MR brain wo con DATE OF EXAM: 01/17/2022 COMPARISON: None HISTORY: Pitutary tumor, headaches. Multiplanar multiecho imaging of the brain without contrast. Diffusion images show no evidence of an acute infarct. Corpus callosum is intact. Brainstem is intact . The madden and white matter structures overall have fairly normal signal pattern. There are a few sca ttered white matter high signal foci at the madden-white matter junction both cerebral hemispheres. Tot al number less than 10 and these measure up to 3 mm. Ventricles have normal size. There is no mass effect or midline shift. No sign of intracranial hemorr yu. Sella turcica appears normal. There is empty sella. There is asymmetric enlargement of the late ral right side of the pituitary gland with rounded intermediate signal that measures 4 mm. This is un changed compared to old exam. No evidence of orbital mass. IMPRESSION: There is large sella turcica which is mostly empty. There is slight asymmetric right side of the pitu itary gland similar to last examination of uncertain and doubtful significance. There are a few scattered small white matter foci of uncertain significance. These could be tiny area s of microvascular ischemia.
== END | disposition home or self-care (01) ==
LOC: RADMRIMAIN 20:54
PROVIDERS: ATTEND Psychiatry & Neurology Neurology
DX: D49.7 Neoplasm of unspecified behavior of endocrine glands and other parts of nervous system (principal)
CPT/HCPCS: 70551

== ENCOUNTER → 2022-02-21 | Outpatient (CLI) | payer OTHER ==
[2022-02-21 10:22] VITALS: BP 111/78; PULSE 69; RESP 18; TEMP 98.8
--- NOTE | 2022-02-21 12:44 | P.PAINPG ---
PQRS Measure Charge Sheet Comment: HISTORY OF PRESENT ILLNESS: 56 yr old female as a referral from Dr. Bender presents today with severe and chronic OKEEFE secondary to Occipital Neuralgia for evaluation. Pt states her pain level is 8/10 in intensity, constant, localized on the base of the head with radiation of sharp pain towards the scalp BL. Experiencing frequent headaches x 3 mo. Provoked w hyperextension. Palliated with medications (Tylenol), ice, repositioning and rest. PMH: GERD, Hyperlipidemia, RA, MDD/ Anxiety, Adrenal Insufficiency 2nd PSH: Appendectomy, Cholecystectomy, Hysterectomy, Pituitary Tumor SH: Daily tobacco user, No ETOH abuse, No illicit drug use FH: Mo- None, Fa- None, PGF- Colon CA All: See list Meds: See lsit REVIEW OF ORGAN SYSTEMS: CONSTITUTIONAL: No fevers or chills. No recent weight loss. NEUROLOGICAL: + numbness and tingling along the distal extremities. No seizure disorders or headaches. MUSCULOSKELETAL: + pain PSYCHIATRIC: Denies current depression or suicidal thoughts. Physical Examinations : Constitutional : Cooperative , not in acute distress . +BL ZAHEER/ FELY TTP Neurologic : Cranial nerve II to XII intact. No focal neurological deficits. Psychiatric : alert & oriented x 3. Matching mood & appropriate affect. Judgment & insight intact. Musculoskeletal : Cervical Spine Motor strength in the deltoid and biceps: Normal right side. Normal Left side Motor strength biceps and the wrist extensors: Normal right side . Normal left side Motor strength in the triceps muscle: Normal right side. Normal left side Deep tendon reflexes: Normal at the biceps. Normal at Brachioradialis. Normal at triceps Vertebral body tenderness to deep palpation over Cervical facet loading test: positive bilaterally Spurling test: positive bilaterally Neck distraction test: positive bilaterally Joanna sign: positive bilaterally Lumbar spine Motor strength lower extremities ,thigh and legs 5/5 Right side , 5/5 Left side Deep tendon reflexes : Normal Knee Jerk. Normal Ankle Jerk Vertebral body tenderness over Lumbar facet Loading Test: positive Right / positive Left Range of motion of the lumbar spine Flexion 30 degrees, extension 10 degrees Straight Leg Raise test: Left/ Right positive at degree Kunal test: positive right / positive left. Severe tenderness over the Sacroiliac joint on the Right / Left sides Gaenslen test: positive bilaterally Seated flexion test: positive bilaterally. Sacral spine : Severe tenderness over the Sacroiliac joint: right side / left side Range of motion: Flexion of the lumbar spine <60 degrees Range of motion: Extension of the lumbar spine <20 degrees Gaenslen's Test positive Heath's Test positive Kunal test: positive right side / left side Thigh Thrust Test Sacral Thrust Test Imaging: MRI without contrast of the brain from 01/17/22 reviewed Assessment/ Plan : BL occipital neuralgia Recommendation of BL ZAHEER/ FELY injections. May need a series, up to 3 within a 6 mo period, for optimal pain relief. Risks, benefits of procedure discussed and patient verbalized understanding. Performed manual cervical traction in exam room which provided substantial pain relief. As pt is taking steroids for AI, may consider PT w a focus on cervical traction/ decompression or use of cervical traction devices on a home basis. Denies aspirin or anti- coagulant use or medical history of diabetes. Protocol for discontinuation/ continuation of medications watson procedure discussed. All questions answered. I have spent greater than 30 minutes on patient care today. Dr Thomas was available by phone for the evaluation of this patient. The time was used to review the medical records including relevant urine studies and Prescription history (MAPs), review of the available imaging, evaluation and examination of the patient, coordination of care with the medical staff and if applicable referring physicians, as well as creation of the medical record PQRS Narrative: Smoking Status Current every day smoker Home Medications: Ambulatory Orders Celecoxib [CeleBREX] 100 mg PO HS 02/26/19 Dicyclomine [Bentyl] 10 mg PO Q6H PRN 7 Days #28 capsule 02/26/19 Ondansetron Odt [Zofran Odt] 4 mg PO Q8HR PRN 5 Days #15 tab 02/26/19 Acetaminophen [Tylenol] 1,000 mg PO Q4-6H PRN 03/01/19 Omeprazole [PriLOSEC] 20 mg PO AC-BID 30 Days #60 cap 03/05/19 Ibuprofen [Motrin] 600 mg PO Q8HR PRN #20 tab 09/21/21 Controlled Substance Measures - Controlled Substance Measures Is patient prescribed a controlled substance at discharge?: No
== END ==
LOC: PNWHC3 09:23
PROVIDERS: ATTEND Specialist
DX: M54.81 Occipital neuralgia (principal); F17.200 Nicotine dependence, unspecified, uncomplicated; K21.9 Gastro-esophageal reflux disease without esophagitis; E78.5 Hyperlipidemia, unspecified; M06.9 Rheumatoid arthritis, unspecified; F41.9 Anxiety disorder, unspecified; Z79.1 Long term (current) use of non-steroidal anti-inflammatories (NSAID); Z79.899 Other long term (current) drug therapy; Z88.1 Allergy status to other antibiotic agents; Z88.5 Allergy status to narcotic agent; Z88.2 Allergy status to sulfonamides
CPT/HCPCS: 99211

== ENCOUNTER → 2022-03-30 | Outpatient (CLI) | payer OTHER ==
[2022-03-30 20:21] LABS: African American GFR (CKD) 82.3 (60.0-200.0); Albumin 4.6 g/dL (3.8-4.9); Albumin/Globulin Ratio 1.7 (1.60-3.17); Anion Gap 11.9 mmol/L (10.00-18.00); BUN/Creat Ratio 15.89 Ratio (12.00-20.00); Blood Urea Nitrogen 14.3 mg/dL (9.0-27.0); Calcium 9.9 mg/dL (8.7-10.3); Carbon Dioxide 23.1 mmol/L (20.0-27.5); Globulin 2.7 g/dL (1.6-3.3); Potassium 5.2 mmol/L (3.5-5.5); T4, Free (Free Thyroxine) 1.3 ng/dL (0.800-1.800); Total Bilirubin 0.4 mg/dL (0.30-1.20); Total Protein 7.3 g/dL (6.2-8.2)
== END | disposition home or self-care (01) ==
LOC: LABWHC1 12:09
PROVIDERS: ATTEND Internal Medicine
DX: D35.2 Benign neoplasm of pituitary gland (principal)
CPT/HCPCS: 36415; 80053; 84305; 84439; 84443

== ENCOUNTER 2022-04-09 15:51 | Emergency (ER) | payer OTHER ==
[2022-04-09] MEDS ORDERED: SODIUM CHLORIDE 0.9% 1,000 ML IV STA (17:13)
[2022-04-09] MEDS ORDERED: fentaNYL (PF) 50 MCG/ML 2 ML AMP IVP STA (17:14)
--- NOTE | 2022-04-09 17:26 | ED ---
General Adult HPI - General Chief complaint: Dizziness Stated complaint: adrenal insufficency Time Seen by Provider: 04/09/22 16:59 Source: patient Mode of arrival: wheelchair Limitations: no limitations - History of Present Illness Initial comments: 56-year-old female, alert and oriented 4, presents to the emergency room with multiple complaints. Patient states that she has a left temporal headache which is related to a pituitary tumor. She states that she also has occipital neuralgia from this tumor. She is also complaining of dizziness and confusion. She denies any fevers, nausea or vomiting or diarrhea. She does have a history of GERD, rheumatoid arthritis, hypotension, adrenal insufficiency and migraine headaches. She is currently seeing a neurologist who prescribed her Flexeril 5 mg which is not helped with her pain today. She also gets steroid injections for her occipital neuralgia and her last injection was around March 09. -: days(s) Severity scale (1-10): 5 Associated Symptoms: confusion, headaches, shortness of breath, other (abdominal pain and dizziness) Treatments Prior to Arrival: other (flexeril 5mg) - Related Data Home Medications Medication Instructions Recorded Confirmed Hydrocortisone [Cortef] 10 tab PO TID 03/22/22 04/09/22 Midodrine [ProAmatine] 5 tab PO AC-TID 03/22/22 04/09/22 Cyclobenzaprine [Flexeril] 5 mg PO HS PRN 04/09/22 04/09/22 Escitalopram [Lexapro] 20 mg PO DAILY 04/09/22 04/09/22 Hydrocortisone [Cortef] 10 mg PO DIRECTED PRN 04/09/22 04/09/22 busPIRone HCl [Buspar] 5 mg PO DAILY 04/09/22 04/09/22 Allergies Allergy/AdvReac Type Severity Reaction Status Date / Time cephalexin monohydrate AdvReac Swelling Verified 04/09/22 19:22 [From Keflex] codeine AdvReac Itching Verified 04/09/22 19:22 erythromycin base AdvReac Swelling Verified 04/09/22 19:22 [Erythromycin Base] Sulfa (Sulfonamide AdvReac Swelling Verified 04/09/22 19:22 Antibiotics) Review of Systems ROS Statement: Those systems with pertinent positive or pertinent negative responses have been documented in the HPI. ROS Other: All systems not noted in ROS Statement are negative. Past Medical History Past Medical History: GERD/Reflux, Hyperlipidemia, Rheumatoid Arthritis (RA) Additional Past Medical History / Comment(s): enlarged L ventricle per patient, low blood pressure, migraines History of Any Multi-Drug Resistant Organisms: None Reported Past Surgical History: Appendectomy, Cholecystectomy, Hysterectomy Additional Past Surgical History / Comment(s): Claudoi Fundoplication Past Anesthesia/Blood Transfusion Reactions: Motion Sickness Additional Past Anesthesia/Blood Transfusion Reaction / Comment(s): no hx blood transfusion Past Psychological History: Anxiety, Depression Smoking Status: Current every day smoker Past Alcohol Use History: None Reported Past Drug Use History: None Reported - Past Family History Mother Family Medical History: No Reported History Father Family Medical History: No Reported History Additional Family Medical History / Comment(s): father's dad had colon CA General Exam Limitations: no limitations General appearance: alert, in no apparent distress Head exam: Present: atraumatic, normocephalic, normal inspection Eye exam: Present: EOMI. Absent: scleral icterus, conjunctival injection, nystagmus, periorbital swelling, periorbital tenderness ENT exam: Present: mucous membranes dry Neck exam: Present: normal inspection, full ROM. Absent: tenderness, meningismus, lymphadenopathy Respiratory exam: Present: normal lung sounds bilaterally. Absent: respiratory distress, accessory muscle use Cardiovascular Exam: Present: tachycardia GI/Abdominal exam: Present: soft Extremities exam: Present: full ROM, normal capillary refill. Absent: tenderness, pedal edema Neurological exam: Present: alert, oriented X3, CN II-XII intact Expanded Patient oriented to: Present: person, place, time Speech: Present: fluid speech Cranial nerves: EOM's Intact: Normal, Gag Reflex: Normal, Tongue Deviation: Normal Upper motor neuron: Juan M Neglect: Normal, Pronator Drift: Normal Motor strength exam: RUE: 5, LUE: 5, RLE: 5, LLE: 5 Eye Response: (4) open spontaneously Motor Response: (6) obeys commands Verbal Response: (5) oriented Patricia Total: 15 Psychiatric exam: Present: normal affect, normal mood (history of hearing loss left ear and visual loss left eye) Skin exam: Present: warm, dry, normal color. Absent: cyanosis, diaphoretic, petechiae, pallor Course Vital Signs 04/09/22 04/09/22 04/09/22 15:53 18:41 19:19 Temperature 98 F 97.9 F Pulse Rate 104 H 63 63 Respiratory 16 18 18 Rate Blood Pressure 138/88 139/90 127/84 O2 Sat by Pulse 99 97 95 Oximetry EKG Findings - EKG Results: EKG: sinus rhythm (Since rhythm, ventricular rate 55, [place] interval 0.151, QRS 0.86, QTC 0.435) Medical Decision Making - Medical Decision Making Patient presents with a left temporal headache consistent with previous headaches. Patient denies any trauma or fevers CT brain shows no mass affect or midline shift. No intracranial hemorrhage. Normal enhancement of the venous sinuses. Chest x-ray normal, no acute cardiopulmonary process. Labs are unremarkable. On exam, patient has no focal neurological deficits. 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 Patient is feeling better after IV fluids and pain medication. VSS Case discussed with Dr. Dobbs, patient will be discharged home to follow up with her neurologist. Patient and family are agreeable to this plan of care. - Lab Data Result diagrams: 04/09/22 17:25 04/09/22 17:25 Lab Results 04/09/22 04/09/22 04/09/22 Range/Units 17:25 17:25 17:25 WBC 10.1 (3.8-10.6) k/uL RBC 4.94 (3.80-5.40) m/uL Hgb 14.4 (11.4-16.0) gm/dL Hct 46.2 H (34.0-46.0) % MCV 93.5 (80.0-100.0) fL MCH 29.1 (25.0-35.0) pg MCHC 31.1 (31.0-37.0) g/dL RDW 13.6 (11.5-15.5) % Plt Count 273 (150-450) k/uL MPV 7.5 Neutrophils % 66 % Lymphocytes % 22 % Monocytes % 8 % Eosinophils % 2 % Basophils % 1 % Neutrophils # 6.7 (1.3-7.7) k/uL Lymphocytes # 2.2 (1.0-4.8) k/uL Monocytes # 0.8 (0-1.0) k/uL Eosinophils # 0.2 (0-0.7) k/uL Basophils # 0.1 (0-0.2) k/uL Sodium 139 (137-145) mmol/L Potassium 4.0 (3.5-5.1) mmol/L Chloride 105 (98-107) mmol/L Carbon Dioxide 27 (22-30) mmol/L Anion Gap 7 mmol/L BUN 13 (7-17) mg/dL Creatinine 0.67 (0.52-1.04) mg/dL Est GFR (CKD-EPI)AfAm >90 (>60 ml/min/1.73 sqM) Est GFR (CKD-EPI)NonAf >90 (>60 ml/min/1.73 sqM) Glucose 96 (74-99) mg/dL Calcium 8.4 (8.4-10.2) mg/dL Total Bilirubin 0.4 (0.2-1.3) mg/dL AST 17 (14-36) U/L ALT 13 (4-34) U/L Alkaline Phosphatase 70 (38-126) U/L Total Protein 6.3 (6.3-8.2) g/dL Albumin 3.8 (3.5-5.0) g/dL Cortisol 8 ug/dL Urine Color Yellow Urine Appearance Clear (Clear) Urine pH 8.0 (5.0-8.0) Ur Specific [place] 1.010 (1.001-1.035) Urine Protein Negative (Negative) Urine Glucose (UA) Negative (Negative) Urine Ketones Negative (Negative) Urine Blood Negative (Negative) Urine Nitrite Negative (Negative) Urine Bilirubin Negative (Negative) Urine Urobilinogen <2.0 (<2.0) mg/dL Ur Leukocyte Esterase Negative (Negative) Disposition Clinical Impression: Headache Disposition: HOME SELF-CARE Condition: Good Instructions (If sedation given, give patient instructions): Acute Headache (ED) Additional Instructions: Continue your previously prescribed medications and follow up with Dr. Napoleon calvin xt week. Return to the emergency room with any new or concerning symptoms. Is patient prescribed a controlled substance at d/c from ED?: No Referrals: Bro Cristina MD [Primary Care Provider] - 1-2 days Time of Disposition: 19:12
[2022-04-09 17:49] LABS: Basophils # (A) 0.1 k/uL (0-0.2); Basophils % (A) 1 %; Eosinophils # (A) 0.2 k/uL (0-0.7); Eosinophils % (A) 2 %; HCT 46.2 % (34.0-46.0); HGB 14.4 gm/dL (11.4-16.0); Lymphocytes # (A) 2.2 k/uL (1.0-4.8); Lymphocytes % (A) 22 %; MCH 29.1 pg (25.0-35.0); MCHC 31.1 g/dL (31.0-37.0); MCV 93.5 fL (80.0-100.0); Mean Platelet Volume 7.5; Monocytes # (A) 0.8 k/uL (0-1.0); Monocytes % (A) 8 %; Neutrophils # (A) 6.7 k/uL (1.3-7.7); Neutrophils % (A) 66 %; Platelet Count 273 k/uL (150-450); RBC 4.94 m/uL (3.80-5.40); RDW 13.6 % (11.5-15.5); WBC 10.1 k/uL (3.8-10.6)
[2022-04-09 17:52] LABS: Appearance,Urine Clear (Clear); Bilirubin,Urine Negative (Negative); Blood,Urine Negative (Negative); Color,Urine Yellow; Glucose,Urine (UA) Negative (Negative); Ketones,Urine Negative (Negative); Leukocyte Esterase,Urine Negative (Negative); Nitrite,Urine Negative (Negative); Protein,Urine Negative (Negative); Urobilinogen,Urine <2.0 mg/dL (<2.0)
[2022-04-09 17:58] LABS: ALT 13 U/L (4-34); AST 17 U/L (14-36); African American GFR (CKD) >90 (>60 ml/min/1.73 sqM); Albumin 3.8 g/dL (3.5-5.0); Alkaline Phosphatase 70 U/L (38-126); Anion Gap 7 mmol/L; Blood Urea Nitrogen 13 mg/dL (7-17); Calcium 8.4 mg/dL (8.4-10.2); Carbon Dioxide 27 mmol/L (22-30); Chloride 105 mmol/L (98-107); Glucose 96 mg/dL (74-99); Non-African American GFR(CKD) >90 (>60 ml/min/1.73 sqM); Sodium 139 mmol/L (137-145); Total Bilirubin 0.4 mg/dL (0.2-1.3); Total Protein 6.3 g/dL (6.3-8.2)
[2022-04-09 18:42] VITALS: PULSE 63; RESP 18
--- NOTE | 2022-04-09 18:46 | CT ---
EXAMINATION TYPE: CT brain wo/w con DATE OF EXAM: 04/09/2022 COMPARISON: None HISTORY: headache; hx tumor CT DLP: 2312.4 mGycm Automated exposure control for dose reduction was used. CONTRAST: Performed with IV Contrast, patient injected with 100ml mL of Isovue 300. Images obtained of the brain without and with IV contrast. Ventricles and sulci appear normal. There is no mass effect nor midline shift. No evidence of intracr anial hemorrhage. Contrast images show no pathologic enhancement. There is normal enhancement of the venous sinuses. IMPRESSION: Negative head CT scan.
--- NOTE | 2022-04-09 18:47 | XR ---
EXAMINATION TYPE: XR chest 2V DATE OF EXAM: 04/09/2022 COMPARISON: None HISTORY: Short of breath TECHNIQUE: FINDINGS: Heart and mediastinum are normal. Lungs are clear. Diaphragm is normal. Bony thorax is inta ct. There are chest leads. IMPRESSION: Normal chest
[2022-04-09 19:24] VITALS: BP 127/84; TEMP 97.9
== END 2022-04-09 19:30 | disposition home or self-care (01) ==
LOC: EC 15:51
DX: R51.9 Headache, unspecified (principal); E78.5 Hyperlipidemia, unspecified; F17.200 Nicotine dependence, unspecified, uncomplicated
CPT/HCPCS: 36415; 93005; 80053; 82533; 84244; 85025; 81003; 82024; 71046; 70470; 99285; 96374; 96361; J3010; Q9967

== ENCOUNTER → 2022-04-14 | Outpatient (CLI) | payer OTHER ==
[2022-04-14 10:12] VITALS: BP 130/91; PULSE 88; RESP 18; TEMP 98.4
--- NOTE | 2022-04-14 13:34 | P.PAINPG ---
PQRS Measure Charge Sheet Comment: A 56 yr old female w at side with a history of severe and chronic low back pain secondary to lumbar degenerative disc diseases and lumbar spondylosis with facet arthropathy without myelopathy presents today for evaluation s/p BL ZAHEER injections. Pt states she experienced 100% pain relief x 3 wks s/p procedure. Pain level is currently at 3 /10 in intensity, constant, localized in the base of the neck, stabbing/ piercing/ throbbing in character w shooting towards the scalp BL. Pain is provoked as high as 10/10 where she is hospitalized by hyperextension/ lateral flexion. Pain is alleviated with ice, medications (Tylenol), topicals, repositioning and rest. Interventional pain procedures completed include BL ZAHEER x1 Patient is currently on Tylenol OTC Patient denies any side effects of the medication(s), denies excessive drowsiness or sleepiness, denies suicidal ideation and reports that the current pain medication is helping to control the pain and improve activities of daily living. Patient denies any motor or sensory deficits. Patient denies any fever or night sweats, denies any change in the bowel movements or urination. Physical Examination: -Constitutional: Cooperative. Not in acute distress . - Neurologic: Cranial nerve II to XII intact. No focal neurological deficits. - Psychatric: Alert & oriented x 3. Matching mood & appropriate affect. Judgment and insight intact. - Musculoskeletal: Cervical spine: BL ZAHEER TTP Muscle bulk/ tone/ strength in the bilateral upper extremities normal Vertebral body tenderness to palpation over Spurling test positive Distraction test positive Facet loading test positive Thoracic spine Muscle bulk / tone/ strength in the bilateral paraspinal muscles normal Vertebral body tender to palpation over Facet loading test positive Lumbar spine: Motor bulk/ tone/ strength lower extremities , thigh and legs : 5/5 Deep tendon reflexes : Normal Knee Jerk. Normal Ankle Jerk . Vertebral body tenderness to palpation over Lumbar Facet Loading Test positive Straight Leg Raise: positive at 30 degrees right side/ left side Gaenslen's Test positive Sacral spine : Severe tenderness over the Sacroiliac joint: right side / left side Range of motion: Flexion of the lumbar spine <60 degrees Range of motion: Extension of the lumbar spine <20 degrees Gaenslen's Test positive Heath's Test positive Kunal test: positive right side / left side Thigh Thrust Test Sacral Thrust Test Assessment and plan: Chronic headache secondary to GL occipital neuralgia Recommendation of BL ZAHEER injection #2. May need a series of injections, up until RFA, for optimal pain relief. Risks, benefits of procedure discussed and pt verbalized understanding. Denies anticoagulant use or medical history of diabetes. All patient questions answered MAPS reviewed and it was appropriate. Prescription for Fioricet, once daily when necessary pain #30 with 1 RF I have spent less than 30 minutes on patient care today. Dr Thomas was available by phone for the evaluation of this patient. The time was used to review the medical records including relevant urine studies and Prescription history (MAPs), review of the available imaging, evaluation and examination of the patient, coordination of care with the medical staff and if applicable referring physicians, as well as creation of the medical record PQRS Narrative: Smoking Status Current every day smoker Hx Alcohol Use (MH) No Home Medications: Ambulatory Orders Hydrocortisone [Cortef] 10 tab PO TID 03/22/22 Midodrine [ProAmatine] 5 tab PO AC-TID 03/22/22 Cyclobenzaprine [Flexeril] 5 mg PO HS PRN 04/09/22 Escitalopram [Lexapro] 20 mg PO DAILY 04/09/22 Hydrocortisone [Cortef] 10 mg PO DIRECTED PRN 04/09/22 busPIRone HCl [Buspar] 5 mg PO DAILY 04/09/22 Butalb/Acetaminophen/Caffeine [Fioricet 50-300-40 mg Capsule] 1 each PO Q24H PRN 30 Days #30 cap 04/14/22 Controlled Substance Measures - Controlled Substance Measures Is patient prescribed a controlled substance at discharge?: No
== END ==
LOC: PNWHC3 08:57
PROVIDERS: ATTEND Specialist
DX: M54.81 Occipital neuralgia (principal); F17.200 Nicotine dependence, unspecified, uncomplicated; G89.29 Other chronic pain; Z88.1 Allergy status to other antibiotic agents; Z88.5 Allergy status to narcotic agent; Z88.2 Allergy status to sulfonamides
CPT/HCPCS: 99211

== ENCOUNTER → 2022-05-11 | Outpatient (CLI) | payer OTHER ==
--- NOTE | 2022-05-12 09:53 | MR ---
EXAMINATION TYPE: MR pituitary wo/w con DATE OF EXAM: 05/11/2022 COMPARISON: MRI pituitary gland December 08, 2021. CT brain April 09, 2022. HISTORY: Pituitary tumor, follow up comparison to prior MRI 12-08-21. TECHNIQUE: Multiplanar, multisequence images of the brain and brainstem is performed without and with IV contras t, utilizing 9 mL intravenous Gadavist . Pituitary gland protocol. FINDINGS: Pituitary stalk demonstrates normal enhancement in the midline coronal image 11 current [address]. Slight proximal prominence or thickening redemonstrated. Pituitary gland redemonstrates concave s uperior border. There is no abnormal enlargement to suggest macroadenoma. The suprasellar cistern is maintained. Sagittal postcontrast images show less prominent roughly 1 mm area of nonenhancement post eriorly on sagittal image 8 less well seen on coronal images. Microadenoma at this level cannot be e ntirely excluded. Craniocervical junction remain in satisfactory. No gross hydrocephalus. Ventricular size is stable. O ptic chiasm is not effaced. Adjacent carotid flow voids are preserved. IMPRESSION: Less prominent area of nonenhancement versus prior MRI, microadenoma not entirely exclude d.
== END | disposition home or self-care (01) ==
LOC: RADMRIMAIN 15:03
PROVIDERS: ATTEND Psychiatry & Neurology Neurology
DX: D49.7 Neoplasm of unspecified behavior of endocrine glands and other parts of nervous system (principal)
CPT/HCPCS: 70553; A9585

== ENCOUNTER 2022-05-17 08:55 | Day surgery (SDC) | payer OTHER ==
[2022-05-16 12:04] VITALS: BMI 30.3
[~2022-05-17 08:55] MED LIST changes: -LIDOCAINE 1% 20 ML VIAL (10MG/ML) FOR IV START INTRADERMA PRN
[2022-05-17 09:27] VITALS: TEMP 97.6
[2022-05-17 09:34] LABS: Glucose,Whole Blood 91 mg/dL (70-110)
[2022-05-17] MEDS ORDERED: TRIAMCINOLONE ACETONIDE 40 MG/ML 1 ML VIAL ONE (09:47)
[2022-05-17] MEDS ORDERED: ROPIVACAINE 5 MG/ML 20 ML AMPULE ONE (09:47)
[2022-05-17] MEDS ORDERED: MIDAZOLAM 2 MG/2 ML VIAL ONE (09:47)
[2022-05-17] MEDS ORDERED: fentaNYL (PF) 50 MCG/ML 2 ML AMP ONE (09:47)
--- NOTE | 2022-05-17 09:57 | P.PCN ---
Date of Procedure: 05/17/22 Surgeon: Ashtyn Tiwari Pathology: none sent Condition: stable Disposition: PACU Description of Procedure: Pre-operative diagnosis: 1- occipital neuralgia Post Operative Diagnosis 1- occipital neuralgia Procedure: 1- B/L greater and lesser occipital nerve block ANESTHESIA: Local with Lidocaine 1 % EBL: Minimal PROCEDURE INDICATION: The patient with neck pain and headache secondary to occipital neuralgea unresponsive to conservative treatments. PROCEDURE DESCRIPTION / TECHNIQUE: The patient was seen and identified in the preoperative area. Risks, benefits, complications, and alternatives were discussed with the patient, the patient agreed to proceed with the procedure and signed the consent. IV was started. Vital signs remained stable throughout the procedure. Patient was taken to the OR and time out was completed. The patient was placed in the prone position on the procedure table. . The cervical area and right occi ptial area were prepped with chloraprep. Critical pause was taken. Vital signs were closely monitored during the procedure. The the occipital exuberance and superior nuchal line were identified on the right side of the occiput. The greater occipital nerve location was estimated to be medial to the occipital artery I used 25-gauge 1-1/2 inch needle to go through the skin and infiltrate 2.5 MLS of a solution made up of 4 MLS Ropivacaine 0.5% +20 mg of Kenalog. The procedure was repeated in the same manner on the left side. Patient tolerated procedure well. Sedation time:[id number]
[2022-05-17] MEDS ORDERED: IV FLUID CONTINUATION 1,000 ML IV ONE (10:01)
[2022-05-17 10:05] VITALS: RESP 16
[2022-05-17 10:17] VITALS: BP 138/87; PULSE 65
== END 2022-05-17 10:31 | disposition home or self-care (01) ==
LOC: ORPAIN 08:55
PROVIDERS: ATTEND Anesthesiology
DX: M54.81 Occipital neuralgia (principal)
CPT/HCPCS: 64405; J2250; J3301; J3010; J2795

== ENCOUNTER → 2022-06-16 | Outpatient (CLI) | payer OTHER ==
--- NOTE | 2022-06-16 09:29 | MR ---
EXAMINATION TYPE: MR cervical spine wo con DATE OF EXAM: 06/16/2022 INDICATION: Patient age:Female; 57 years old; Reason for study: [id number]; Pain, stiffness, headaches COMPARISON: None. TECHNIQUE: Multi planar, multi sequence imaging was performed utilizing: T1-weighted, T2-weighted, an d turbo inversion recovery imaging of the cervical spine. IV Contrast: None FINDINGS: Alignment: The cervical vertebral bodies have preserved heights. Alignment is within normal limits gi burke patient positioning. Bones: Bone signal is within normal limits. No significant disc degeneration changes are identified. Scattered facet joint and uncovertebral joint arthropathy. No Cord: The spinal cord is unremarkable w ith regards to their signal intensity and morphology. Discs: Intervertebral disc signal is maintained. C2-C3: No significant disc pathology. The spinal canal is patent. No neural foraminal stenosis. C3-C4: No significant disc pathology. The spinal canal is patent. No neural foraminal stenosis. C4-C5: No significant disc pathology. The spinal canal is patent. Bilateral facet and uncovertebral joint arthropathy are present with moderate bilateral neural foraminal stenosis. C5-C6: No significant disc pathology. The spinal canal is patent. Bilateral facet and uncovertebral joint arthropathy are present with mild bilateral neural foraminal stenosis. C6-C7: No significant disc pathology. The spinal canal is patent. Bilateral facet and uncovertebral joint arthropathy are present with mild bilateral neural foraminal stenosis. C7-T1: No significant disc pathology. The spinal canal is patent. No neural foraminal stenosis. Other: The adenoids are enlarged with somewhat cystic changes. IMPRESSION: 1. No evidence for disc herniation or significant spinal canal stenosis. 2. Multilevel disc degeneration with associated osteoarthritic changes.
== END | disposition home or self-care (01) ==
LOC: RADMRIMAIN 07:32
PROVIDERS: ATTEND Psychiatry & Neurology Neurology
DX: M47.812 Spondylosis without myelopathy or radiculopathy, cervical region (principal); M50.31 Other cervical disc degeneration, high cervical region; M54.81 Occipital neuralgia
CPT/HCPCS: 72141

== ENCOUNTER → 2022-07-07 | Outpatient (CLI) | payer OTHER ==
[2022-07-07 08:38] VITALS: BP 128/60; PULSE 96; RESP 18; TEMP 98.6
--- NOTE | 2022-07-07 14:41 | P.PAINPG ---
PQRS Measure Charge Sheet Comment: A 57 yr old female with at side with a history of severe and chronic OKEEFE pain secondary to cervicogenic OKEEFE and occipital neuralgia presents today for evaluation s/p BL ZAHEER injections. Pt states she experienced 75 % pain relief x 7 wks s/p procedure. Pain level is currently at 0 /10 in intensity but 7/10 when provoked, constant, localized in the base of the head, sharp in character without shooting pain. Pain is provoked by hyperextension. Pain is alleviated with traction. Also admits to cervical pain, sharp and throbbing in character, 8/10 in intensity when provoked w laying supine, hyperextension or rotation. Pain is relieved w home exercise as tolerated, home traction use, ice, medications (Tyl) and rest. Imaging reviewed w patient. Interventional pain procedures completed include BL ZAHEER/ FELY Patient is currently on Tyl OTC Patient denies any side effects of the medication(s), denies excessive drowsiness or sleepiness, denies suicidal ideation and reports that the current pain medication is helping to control the pain and improve activities of daily living. Patient denies any motor or sensory deficits. Patient denies any fever or night sweats, denies any change in the bowel movements or urination. Physical Examination: -Constitutional: Cooperative. Not in acute distress . - Neurologic: Cranial nerve II to XII intact. No focal neurological deficits. - Psychatric: Alert & oriented x 3. Matching mood & appropriate affect. Judgment and insight intact. - Musculoskeletal: Cervical spine: Muscle bulk/ tone/ strength in the bilateral upper extremities normal Vertebral body tenderness to palpation over C6 Spurling test positive Distraction test positive Facet loading test positive Thoracic spine Muscle bulk / tone/ strength in the bilateral paraspinal muscles normal Vertebral body tender to palpation over Facet loading test positive Lumbar spine: Motor bulk/ tone/ strength lower extremities , thigh and legs : 5/5 Deep tendon reflexes : Normal Knee Jerk. Normal Ankle Jerk . Vertebral body tenderness to palpation over Lumbar Facet Loading Test positive Straight Leg Raise: positive at 30 degrees right side/ left side Gaenslen's Test positive Sacral spine : Severe tenderness over the Sacroiliac joint: right side / left side Range of motion: Flexion of the lumbar spine <60 degrees Range of motion: Extension of the lumbar spine <20 degrees Gaenslen's Test positive Kunal test: positive right side / left side Thigh Thrust Test Sacral Thrust Test Imaging: MRI without contrast of the cervical spine from 06/16/22 reviewed Assessment and plan: Chronic OKEEFE and neck pain secondary to cervical DDD with facet arthropathy without myelopathy, occipital neuralgia Recommendation of KOFFI C6-C7 #1. Patient may need a series of injections, up to 3 within a six-month timeframe, for optimal pain relief. Risks, benefits of procedure discussed and pt verbalized understanding. Denies anticoagulant use or medical history of diabetes. All patient questions answered I have spent less than 30 minutes on patient care today. Dr Thomas was available by phone for the evaluation of this patient. The time was used to review the medical records including relevant urine studies and Prescription history (MAPs), review of the available imaging, evaluation and examination of the patient, coordination of care with the medical staff and if applicable referring physicians, as well as creation of the medical record - Pain Location Neck Non-Pharmacological Interventions: Home Exercise, Ice, Inactivity, Position/Reposition, Stretching Pharmacological Interventions: PRN Medication PQRS Narrative: Smoking Status Current every day smoker Hx Alcohol Use (MH) No Home Medications: Ambulatory Orders Hydrocortisone [Cortef] 10 mg PO TID 03/22/22 Midodrine [ProAmatine] 5 tab PO AC-TID 03/22/22 Cyclobenzaprine [Flexeril] 5 mg PO HS PRN 04/09/22 Escitalopram [Lexapro] 20 mg PO HS 04/09/22 busPIRone HCl [Buspar] 5 mg PO DAILY 04/09/22 Butalb/Acetaminophen/Caffeine [Fioricet 50-300-40 mg Capsule] 1 each PO Q24H PRN 30 Days #30 cap 04/14/22 Controlled Substance Measures - Controlled Substance Measures Is patient prescribed a controlled substance at discharge?: No
== END ==
LOC: PNWHC3 08:13
PROVIDERS: ATTEND Specialist
DX: M47.812 Spondylosis without myelopathy or radiculopathy, cervical region (principal); G89.29 Other chronic pain; M50.30 Other cervical disc degeneration, unspecified cervical region; F17.200 Nicotine dependence, unspecified, uncomplicated; Z88.5 Allergy status to narcotic agent; Z88.1 Allergy status to other antibiotic agents; Z88.2 Allergy status to sulfonamides
CPT/HCPCS: 99211

== ENCOUNTER 2022-08-11 12:30 | Day surgery (SDC) | payer OTHER ==
[2022-08-11] MEDS ORDERED: LIDOCAINE 1% (10MG/ML) FOR IV START INTRADERMA PRN (13:13)
[2022-08-11] MEDS ORDERED: LACTATED RINGERS 1,000 ML IV SCH (13:13)
[2022-08-11] MEDS ORDERED: DEXAMETHASONE SOD PHOSPHATE 10 MG/ML 1 ML VIAL ONE (13:24)
[2022-08-11] MEDS ORDERED: MIDAZOLAM 2 MG/2 ML VIAL ONE (13:24)
[2022-08-11] MEDS ORDERED: IOPAMIDOL M200 10 ML VIAL ONE (13:24)
[2022-08-11] MEDS ORDERED: fentaNYL (PF) 50 MCG/ML 2 ML AMP ONE (13:24)
[2022-08-11 13:27] VITALS: TEMP 97.2
--- NOTE | 2022-08-11 13:37 | P.PCN ---
Date of Procedure: 08/11/22 Procedure(s) Performed: . PROCEDURE 1. Cervical epidural steroid injection under fluoroscopic guidance, C6-7 (fluoroscopy images available in the radiology department ) 2. Cervical epidurogram. PREOPERATIVE DIAGNOSIS: 1- Cervical Degenerative Disc Diseases 2- Cervical foraminal stenosis 3-cervical spondylosis with cervical Facet arthropathy without myelopathy.4-cervicogenic headache POSTOPERATIVE DIAGNOSIS: Same as preop diagnosis. ANESTHESIA: moderate sedation, with Versed 2 mg and Fentanyl 100 mcg. Sedation start time : 1327 Sedation end time : 1334 EBL 0 PROCEDURE INDICATION: The patient with neck pain and radiculitis unresponsive to conservative treatment consents for procedure. PROCEDURE DESCRIPTION / TECHNIQUE: The patient was seen and identified in the preoperative area. Risks, benefits, complications, including but not limited to infections ,bleeding , allergic reactions to the medications ,and not complete pain releife, and alternatives were discussed with the patient, the patient agreed to proceed with the procedure and signed the consent. Patient was taken to the OR and time out was completed. The patient was placed in the prone position on the procedure table. A pillow was placed under the patients chest to increase the cervical interlaminar space. The cervical area was prepped and draped in the usual sterile fashion. Vital signs were closely monitored during the procedure. Conscious sedation was used during the procedure to decrease patients anxiety. Using anterior-posterior fluoroscopy, the C6-7 interlaminar space was identified and the skin over this site was marked and then infiltrated with 1% lidocaine subcutaneously. Subsequently, a 20-gauge 3-1/2-inch Tuohy epidural needle was inserted and advanced toward the epidural space by means of the ``hanging-drop technique and guided by AP and lateral fluoroscopy. The correct needle position in the epidural space was verified with the injection of 2 mL of the water soluble contrast dye [id number]-300 and observing an excellent epidurogram with the epidural spread of the dye, after negative aspiration for blood and CSF and in the absence of paresthesias. then, mixture containing 20 mg Dexamethasone and 2 ml of preservative-free normal saline injected and a washout of epidurogram was seen. Needle was withdrawn intact, skin was cleansed, and bandages were applied. Complications= none. Disposition= patient was placed in supine position and transferred to the recovery room area in stable condition and there was no evidence of upper or lower extremity motor or sensory deficit after the procedure patient was discharged from recovery room after discharge criteria met and home discharge instructions was given by the staff and patient will follow with the pain clinic in 2-4 weeks
[2022-08-11] MEDS ORDERED: IV FLUID CONTINUATION 1,000 ML IV ONE (13:38)
[2022-08-11 13:41] LABS: Glucose,Whole Blood 109 mg/dL (70-110)
[2022-08-11 13:58] VITALS: BP 115/80; PULSE 66; RESP 12
--- NOTE | 2022-08-11 15:32 | FL ---
EXAMINATION TYPE: FL guided pain mgmt statistic DATE OF EXAM: 08/11/2022 CLINICAL HISTORY: Neck pain. TECHNIQUE: Fluoroscopy. COMPARISON: None. FINDINGS: Fluoroscopic guidance was provided during pain relief procedure performed by Dr. Thomas . A total of 6 seconds of fluoroscopic time was utilized during the procedure and 1 spot images are acquired. Single image acquired shows needle localization with contrast injection at level of cervic al spine. IMPRESSION: As Above.
== END 2022-08-11 14:12 | disposition home or self-care (01) ==
LOC: ORPAIN 12:30
PROVIDERS: ATTEND Specialist
DX: M50.123 Cervical disc disorder at C6-C7 level with radiculopathy (principal); M47.22 Other spondylosis with radiculopathy, cervical region; M48.02 Spinal stenosis, cervical region; G44.86 Cervicogenic headache; Z88.1 Allergy status to other antibiotic agents; Z88.5 Allergy status to narcotic agent
CPT/HCPCS: 62321; J2250; J1100; J3010; Q9966

== ENCOUNTER → 2022-08-15 | Outpatient (CLI) | payer OTHER ==
[2022-08-15 15:19] VITALS: BP 128/84; PULSE 69; RESP 18; TEMP 98
--- NOTE | 2022-08-15 15:25 | P.PAINPG ---
PQRS Measure Charge Sheet Comment: A 57 yr old female w at side with a history of severe and chronic neck pain secondary to cervical DDD and spondylosis with facet arthropathy without myelopathy presents today for evaluation s/p KOFFI C6-C7. Pt states she experienced 0 % pain relief s/p procedure. Pain level is provoked at 8 /10 in intensity, constant, localized in the cervical spine, sharp/ achy in character w shooting towards the LUE. Pain is provoked by LUE activity. Pain is alleviated with heat, ice, medications (Mobic, Zanaflex), use of UE sling, repostioning and rest. Interventional pain procedures completed include KOFFI C6-C7 Patient is currently on Mobic, Zanaflex Patient denies any side effects of the medication(s), denies excessive drowsiness or sleepiness, denies suicidal ideation and reports that the current pain medication is helping to control the pain and improve activities of daily living. Patient denies any motor or sensory deficits. Patient denies any fever or night sweats, denies any change in the bowel movements or urination. Physical Examination: -Constitutional: Cooperative. Not in acute distress . - Neurologic: Cranial nerve II to XII intact. No focal neurological deficits. - Psychatric: Alert & oriented x 3. Matching mood & appropriate affect. Judgment and insight intact. - Musculoskeletal: Cervical spine: Muscle bulk/ tone/ strength in the bilateral upper extremities normal Vertebral body tenderness to palpation over C6 Spurling test positive Distraction test positive Facet loading test positive Thoracic spine Muscle bulk / tone/ strength in the bilateral paraspinal muscles normal Vertebral body tender to palpation over Facet loading test positive Lumbar spine: Motor bulk/ tone/ strength lower extremities , thigh and legs : 5/5 Deep tendon reflexes : Normal Knee Jerk. Normal Ankle Jerk . Vertebral body tenderness to palpation over Lumbar Facet Loading Test positive Straight Leg Raise: positive at 30 degrees right side/ left side Gaenslen's Test positive Sacral spine : Severe tenderness over the Sacroiliac joint: right side / left side Range of motion: Flexion of the lumbar spine <60 degrees Range of motion: Extension of the lumbar spine <20 degrees Gaenslen's Test positive Kunal test: positive right side / left side Thigh Thrust Test Sacral Thrust Test Assessment and plan: Chronic neck pain secondary to cervical DDD, spondylosis with facet arthropathy without myelopathy Recommendation of repeat MRI cervical spine re: Anuel 50.30, Z [id number] Risks, benefits of procedure discussed and pt verbalized understanding. Mobic 15mg QD #21 NR e scribed. All patient questions answered MAPS reviewed and it was appropriate. Prescription refill for Mobic, Zanaflex per Dr Thomas. I have spent less than 30 minutes on patient care today. Dr Thomas was available by phone for the evaluation of this patient. The time was used to review the medical records including relevant urine studies and Prescription history (MAPs), review of the available imaging, evaluation and examination of the patient, coordination of care with the medical staff and if applicable referring physicians, as well as creation of the medical record PQRS Narrative: Smoking Status Current every day smoker Hx Alcohol Use (MH) No Home Medications: Ambulatory Orders Hydrocortisone [Cortef] 10 mg PO TID 03/22/22 Midodrine [ProAmatine] 5 tab PO AC-TID 03/22/22 Escitalopram [Lexapro] 20 mg PO HS 04/09/22 busPIRone HCl [Buspar] 15 mg PO DAILY 04/09/22 Acetaminophen Tab [Tylenol] 650 mg PO Q6H PRN 08/09/22 Omeprazole 1 tab PO DAILY 08/09/22 Rimegepant Sulfate [Nurtec Odt] 20 mg PO DAILY PRN 08/09/22 tiZANidine [Zanaflex] 4 mg PO Q8HR PRN 30 Days #60 tab 08/12/22 Meloxicam [Mobic] 15 mg PO DAILY PRN 21 Days #21 tablet 08/15/22 Controlled Substance Measures - Controlled Substance Measures Is patient prescribed a controlled substance at discharge?: No
== END ==
LOC: PNWHC3 13:52
PROVIDERS: ATTEND Specialist
DX: M47.812 Spondylosis without myelopathy or radiculopathy, cervical region (principal); M50.30 Other cervical disc degeneration, unspecified cervical region; Z88.1 Allergy status to other antibiotic agents; Z88.5 Allergy status to narcotic agent; Z88.2 Allergy status to sulfonamides; F17.200 Nicotine dependence, unspecified, uncomplicated
CPT/HCPCS: 99211

== ENCOUNTER → 2022-08-16 | Outpatient (CLI) | payer OTHER ==
--- NOTE | 2022-08-17 09:40 | MR ---
EXAMINATION TYPE: MR cervical spine wo con DATE OF EXAM: 08/16/2022 COMPARISON: 06/16/2022 HISTORY: 57-year-old female M50.30, Z03.821, Left arm pain with numbness and tingling in fingers. TECHNIQUE: Multiplanar, multisequence images of the cervical spine were acquired without contrast. FINDINGS: Stable small 5 mm cyst, likely mucosal retention cyst within the left adenoids/nasopharynx. No craniocervical junction abnormality, predental space widening, or prevertebral soft tissue swellin g. Mild heterogeneous marrow signal likely some red marrow hyperplasia which can be seen in the setting of anemia, obesity, smoking, chronic disease. No suspicious bone marrow placement. There is mild multilevel degenerative disc desiccation. Ligament of flavum thickening mid cervical sp ine may show slight progression from 06/16/2022. No focal disc herniation or spinal canal stenosis is seen. Alignment is maintained. Normal course, caliber, and signal intensity of the cervical spinal cord. Scattered mild facet and uncovertebral joint arthropathy.. This continues to mild right neural forami nal narrowing at C4-C5. No significant neuroforaminal stenosis is identified. No prevertebral or paravertebral soft tissue abnormality seen. IMPRESSION: 1. Similar mild degenerative intervertebral disc desiccation at the cervical spine. No focal disc her niation or spinal canal stenosis. 2. Scattered mild uncovertebral joint and facet arthropathy. This contributes to mild right neural fo raminal narrowing at C4-C5. No significant neural foraminal stenosis. 3. Some mild ligamentum flavum thickening in the mid cervical spine may have developed developed comp ared to 06/16/2022.
== END | disposition home or self-care (01) ==
LOC: RADMRIMAIN 12:04
PROVIDERS: ATTEND Physician Assistant Medical
DX: Z03.821 Encounter for observation for suspected ingested foreign body ruled out (principal); M47.812 Spondylosis without myelopathy or radiculopathy, cervical region; M99.71 Connective tissue and disc stenosis of intervertebral foramina of cervical region; M50.30 Other cervical disc degeneration, unspecified cervical region
CPT/HCPCS: 72141

== ENCOUNTER 2022-12-27 05:53 | Day surgery (SDC) | payer OTHER ==
[2022-12-22 09:01] VITALS: BMI 29.9
--- NOTE | 2022-12-26 18:45 | P.HPOR ---
History of Present Illness H&P Date: 11/24/22 .D:Date: 11/24/22 : 04:14pm .T:Title: [facility] Date of :[birth year] R14 Allergies: Age: 57 year Height: 5'8" Weight: 195 lbs BMI: 29.65 kg/m2 Occupation: Disabled VAS: 6 CHIEF COMPLAINT: Low back pain DOI: N/A DOS: N/A Duration of current treatment regiment: N/A HISTORY : Xrays New xrays taken in office Trauma or injury No Work-Related No Pain description aching, burning, sharp, increasing . Location diffuse Patient notes that their pain radiates to the buttocks and groin Activity Modification yes Hand Dominance right TREATMENTS COMPLETED: 6 weeks of PT completed? Month and Year of last PT date? No Physician directed home exercise completed? No Medications yes List: Flexeril and Tylenol Alternative interventions Chiropractic: No Massage therapy: No R.I.C.E: yes Brace: No Injections No RFA:No SUBJECTIVE: Ms. Hardy presents to the office for an evaluation of their low back pain. Patient reports a burning, aching, stabbing and shooting lumbar pain with an increase in symptoms in the last 4 months. In addition to their lumbar pain, they do report that it radiates into the buttocks and groin, without numbness and tingling. They state that their hip is in constant pain as well. Overall the patient has seen a progressive increase in symptoms since their onset. Ms. Hardy symptoms are exacerbated with activity and ambulation, due to this they note that it is increasingly difficult for Ms. Hardy to complete many of their daily tasks. Patient is having moderate sleep disturbances as well due to their ongoing pain and associated symptoms. Regarding treatments, the patient has previously trialed the TENS unit without relief of their symptoms. Patient denies trialing any other modalities at this time. For their symptoms, the patient has been taking Flexeril 5mg and Tylenol. Otherwise the patient denies any f/c/sob/cp, no incision concerns, no bladder or bowel retention/incontinence, no perineal numbness/tingling, and ambulates independently. The patients' past social, medical, family, surgical history, as well as review of systems, have been reviewed. Please refer to the Neurosurgery History and Physical form that has been scanned in to our electronic medical record system. 14 points review of systems completed and as stated in HPI, all other systems reviewed are negative. Social History: Smoking: current smoker P3 Alcohol: none P3 Family History: Reviewed, see appropriate section of the chart for details. Past Medical History: Reviewed, see appropriate section of the chart for details. Current Medications: Rx: busPIRone 5 mg tablet Ref: 0 Instructions: take 1 tablet (5 mg) by oral route 2 times per day Rx: Emgality Syringe Ref: 0 Rx: escitalopram 20 mg tablet Ref: 0 Instructions: take 1 tablet (20 mg) by oral route once daily Rx: hydrocortisone 10 mg tablet Ref: 0 Instructions: take 1 tablet (10 mg) by oral route 2 times per day with food Rx: midodrine 2.5 mg tablet Ref: 0 Instructions: take 1 tablet (2.5 mg) by oral route 3 times per day Rx: omeprazole 20 mg tablet,delayed release Ref: 0 Rx: Flexeril Ref: 0 Instructions: as directed Rx: Tylenol Extra Strength 500 mg tablet Ref: 0 Instructions: take 2 tablets (1,000 mg) by oral route every 6 hours as needed P1 PHYSICAL EXAMINATION: General: Awake, alert, appropriate for age, in no acute distress. HEENT: No unusual neck masses around region of lateral neck triangle, thyroid, supraclavicular groove Extremities:Skin warm and dry without acute lesions, coloration, temperature, skin intact, no tenderness or erythema Integument: Hairy patches:ABSENT Dorsal skin dimples:ABSENT Cafe au lait spots:ABSENT Surgical incisions: none Palpation: Please see Pain drawing on Intake sheet for further detail. Midline spinal tenderness: No E6 Cervical Tenderness: No E6 Paralumbar tenderness: No E6 Parathoracic tenderness: No E6 Buttocks tenderness: No E6 Sacroilliac Tenderness: yes Laterality: Left +Compression +Distraction +Hip Thrust +FABER4 POSTURAL and MUSCULO-SKELETAL EVALUATION: Coronal Balance: NEUTRAL Recumbent testing: Patient isable to lay flat on back Sagittal Balance: NEUTRAL Shoulder Profile: LEVEL Pelvic Girdle: LEVEL Neck ROM: UNRESTRICTED Lumbar ROM: UNRESTRICTED Shoulder ROM:Symmetrical Hip ROM: Symmetrical Knee ROM:Symmetrical Hands: Normal appearance, symmetrical Feet: Normal appearance, Symmetrical VASCULAR STATUS : LEFT RIGHT Wrist Pulses INTACT INTACT Pedal Pulses (Dors. pedis & post.tibialis) INTACT INTACT Color NORMAL NORMAL Edema Absent Absent NEUROLOGIC EXAMINATION: Mental Status:Awake and alert, fully oriented, with normal attention, concentration and memory, and fluent, appropriate speech. Cranial Nerves: I: Olfactory not tested. II: Visual acuity normal, no visual field deficit noted with confrontation. III,IV: Normal pupillary reflexes & intact extraocular movements without nystagmus. V,: Intact symmetrical facial sensation. VII: Intact symmetrical facial motor movement VIII: Hearing intact. IX,X: Intact gag, swallow, & normal voice. XI: Sternocleidomastoid, trapezius function intact. XII: Tongue midline with normal movements. L'hermitte's Sign: Negative / absent Spurling'Sign: Absent bilaterally. Cubital percussion test: Absent bilaterally. Ruby-Tinel sign - Carpal region: Absent bilaterally. Straight Leg Raising: Absent bilaterally. Crossed straight leg raise: negative MOTOR EXAM (0-5/5, N/T Muscle appearance:Symmetrical, without signs of atrophy or dystrophy UPPER EXTREMITY RIGHT LEFT Shoulder Abduction 5/5 5/5 Biceps 5/5 5/5 Triceps 5/5 5/5 Wrist Extension 5/5 5/5 Hand Intrnsics 5/5 5/5 Passenger Conductor 5/5 5/5 Hand and finger dexterity intact bilaterally?yes Disdiadochokinesis examination negative bilaterally? yes LOWER EXTREMITY RIGHT LEFT Hip Flexion 5/5 5/5 Knee Extension 5/5 5/5 Knee Flexion 5/5 5/5 Dorsiflexion 5/5 5/5 Plantarflexion 5/5 5/5 EHL 5/5 5/5 FHL 5/5 5/5 Toe heel walk / heel-toe walk intact while maintaining satisfactory balance? yes Squatting/straightening w/o assistance to a min of 60 degree knee flexion? yes Single leg stance: intact REFLEXES(0-4/2, NT)Upper ExtremityLower Extremity Right 2 2 Left 2 2 Pathological Reflexes RIGHT LEFT Ruby's Absent Absent Clonus Absent Absent Babinski Absent Absent Sensory system (0-4, N/T) Test type RU CORNELIUS RL LL Joint-Position 2 2 2 2 Vibration 2 2 2 2 Pain & LT sense 2 2 2 2 Dermatomal Deficit: None None None None Gait and Functional Evaluation: Ambulatory aids: Independent Romberg's test: Intact bilaterally Steady Gait RADIOGRAPHIC STUDIES: XRay Lumbar Multiview (AP, Lateral, Flexion, Extension) with AP pelvis; 5 views taken at [facility] on 11/24/22 of Lumbar, Pelvis Spine: Images reviewed with the patient. There is mild to moderate spondylosis at L5- S1 with some height collapse and mild facet arthropathy. OVerall alignment maintained in the sagittal and coronal planes. No fractures. No lesions noted. AP pelvis shows congruent pelvis. b/l SIJ show some sclerotic borders and subchondral cyst changes due to OA. No fractures. No lesions. I MPRESSION: It was my pleasure to have seen and examined Iram. I reviewed the patient's clinical syndrome, physical findings, and imaging studies during the appointment today. It is my impression that the patient has a diagnosis of. 1. Left Sacroiliitis 2.L5-S1 Spondylosis I outlined the natural course history without intervention and various interventional options. PLAN: Based on my findings I suggest the following course of action: -Physical Therapy: The patient was given a script for lumbar and SI joint PT to work on balance, core strengthening, gait and other modalities to help with their current condition. They were encouraged to follow the PTs instructions carefully and to continue to exercise at home. -I discussed treatment options with the patient, including operative and non- operative options, and they have elected to proceed with the following surgical procedure: Left SI Joint Injections The indications, risks, benefits, and alternatives to surgery were discussed with the patient and family at length. Specifically (but not limited to) the risks of infection, stiffness, recurrence of symptoms, need for revision surgery, local numbness, neurovascular injury, and blood clots were discussed. The patient's questions were answered.The decision to proceed was made. Consent will be obtained for the procedure. -Ambulate daily -Take medications as directed -Ice and rest for pain and swelling control. Spine Surgery Risk Review Ms. Hardy is presenting for evaluation of low back pain. It was my pleasure to have seen and examined Ms. Hardy. In our visit today we have had a chance to go over subjective complaints, physical examination findings and treatments including the natural course history without intervention and various interventional options. The patients imaging demonstrates: XRay Lumbar Multiview (AP, Lateral, Flexion, Extension) with AP pelvis; 5 views taken at [facility] on 11/24/22 of Lumbar, Pelvis Spine: Images reviewed with the patient. There is mild to moderate spondylosis at L5- S1 with some height collapse and mild facet arthropathy. OVerall alignment maintained in the sagittal and coronal planes. No fractures. No lesions noted. AP pelvis shows congruent pelvis. b/l SIJ show some sclerotic borders and subchondral cyst changes due to OA. No fractures. No lesions. On physical exam, Ms. Hardy demonstrates: Patient reports a burning, aching, stabbing and shooting lumbar pain with an increase in symptoms in the last 4 months. In addition to their lumbar pain, the y do report that it radiates into the buttocks and groin, without numbness and tingling. They state that their hip is in constant pain as well. Overall the patient has seen a progressive increase in symptoms since their onset. Sacroilliac Tenderness: yes Laterality: Left +Compression +Distraction +Hip Thrust +FABER4 I have explained to the patient that as their condition progresses it will cause further neurological deficits and eventual paralysis. Based on the patients imaging, physical exam, and the rapid progression and disabling nature of their symptoms, at this time I recommend surgery in the form of a: Left SI Joint Injections. I discussed the risk and benefits of this procedure at length with Ms. Hardy. The patient agreed to considered pursuing the procedure abovementioned. Prior to surgery, she should follow up with her PCP (Cardio, ID, IM etc) for clearance. Questions were invited and answered, and the patient wishes to proceed as outlined below. Currently, I am recommendin. Left SI Joint Injections 2.Follow up with PCP for surgical clearance 3.Review of surgical risks and benefits as well as an educational packet on the proposed surgical procedure. Risks: All surgical procedures come with inherent risks, including those related to positioning, anesthesia, intraoperative findings, and postoperative complications. It is important to understand that surgery does not come with any guarantee of a successful outcome as complications and adverse events are always possible. The patient was given a handout in office today discussing the surgical procedure and risks associated with the intervention, both of which were discussed with the patient. These risks include but are not limited to the following: * Experiencing same, different or even worse symptoms in back, neck, arms, or legs compared to before surgery. Requiring further surgery or other forms of treatment presently or at some time in the future at same or other levels of the intended spine surgery. On an extreme but fortunately relatively rare basis severe complication such as blindness, stroke, heart attack, temporary and/or permanent nerve injury, paralysis, coma, or may occur, sometimes without known exp lanation. Surgical complications may include but are not limited to risk of infection, fluid accumulation in the surgical dissection site, including a seroma or hematoma, that requires additional surgery, wound drainage, bleeding, new numbness or weakness, vision changes/loss, spinal fluid leakage, non-healing and/or infected incision, headaches, difficulty or inability to swallow, hoarseness, hemopneumothorax, pneumothorax, impotence, retrograde ejaculation, vaginal dryness; injury to nerves, spinal cord, blood vessels, lymphatics or other vital organs (i.e., bowel injury, injury to the great vessels); heterotopic bone formation; complications related to the hardware such as screws, rods, cages including misplaced hardware, device failure, instrumentation at the wrong spine level, hardware fracture/breakage, or hardware loosening; vertebral failure of the spinal column above or below the newly placed hardware; retained surgical instrumentations or devices and the need for further surgery. * Medical risks of the planned spine surgery include but are not limited to generalized Infections to the whole body or local areas outside of the surgical site (sepsis), heart attack, bleeding, anaphylaxis, meningitis, seizure, epilepsy, hearing loss, burn rivers, laceration of the head or other areas of the body, bruising, hypersensitivity of the skin, bladder over distension; allergic reaction; shoulder injury related to positioning; fat, blood and air clots to other areas of the body like heart, lungs, brain; failure of internal organs such as lungs, kidneys, liver and excessive bleeding. If blood transfusions are necessary, note that transfusions may cause intolerance reactions such as anaphylaxis or other complex reactions. Despite best efforts, the results of spine surgery might not heal in terms of bone, soft tissues such as skin, fascia, ligaments, and joints. Additionally, in order to achieve best possible results, spine surgery may be carried out beyond the initially planned levels and involve decompression, fusion including insertion of hardware at levels other than the original intended area of surgical interest change some portions of the procedure in order to ensure the best possible outcomes. With spine surgery and spinal fusion, there are different off label uses of instrumentation (devices, implants and hardware) as well as biological sub stances (bone morphogenic proteins, demineralized bone matrix) as well as using extra bone from allograft sources (i.e. cadaver bone) or autograft (iliac crest bone, ribs, or the spine itself). The patient has been given information about these practices and their inherent risks and benefits. [facility] is an educational center that serves as a training facility for neurosurgical and orthopedic DIRECTOR OF MANUFACTURING OPERATIONS and Nursing students. Physician assistants are medically trained surgical providers who function in the outpatient, inpatient, and operating room setting under the direct supervision of the attending surgeon. [facility] has multiple operating rooms with single and overlapping rooms running daily. They currently function under the required guidelines as produced by the [facility] Finance Committee with regards to the overlapping rooms and will continue to comply with changes to this policy as they occur. The requirements include and are complied with as follows: (1) the critical portions of the overlapping rooms will not occur at the same time, (2) the attending physician will be physically present during the critical portions of the procedure and immediately available during the entire case, and (3) a back-up attending is designated should the primary attending not be immediately available. The patient has had a chance to review all the listed information, has been given print outs detailing this information, and has had all his/her questions answered to their satisfaction. It was my pleasure to have seen and examined Ms. Hardy. In our visit today we have had a chance to go over my understanding of our patient's current condition, the natural course history without intervention and various interventional options. Questions were invited and answered, and the patient wishes to proceed as outlined above. I have seen and examined the patient for 25 minutes and we have spent more than 50% of the time in repeat and detailed counseling about the patient's condition, its natural course history with out and as much as can be predicted with surgery and re-review of various surgical treatment options. In conclusion, Ms. Hardy requested we proceed with the above suggested surgery and are willing to accept risks and limitations of the suggested surgery as nature of the disease process and our best attempts at treatment for the condition. Thank you again for allowing us to be part of your patient's care. Please don't hesitate to contact me if you have any further questions. Follow-up: 4 Weeks Post-Procedure Patient Education: (Informational booklet, instructions, etc) given at today's appointment: Yes .ED:Patient Education: Y Medications Reviewed: YES In our visit today Ms. Hardy and I have had a chance to go over my u nderstanding of the patient's current condition, the natural course history without intervention and various interventional options. Questions were invited and answered, and the patient wishes to proceed as outlined above. I will be sure to keep you updated afterMsKatia Hardy returns here for further follow-up. Thank you again for your referral. Please do not hesitate to contact me if you have any further questions. Signed and authenticated by: Juan Francisco Cruz [facility] Complex and Minimally Invasive Spine Surgery [address] [facility], [address] [address] This message is confidential, intended only for the named recipient(s) and may contain information that is privileged or exempt from disclosure under applicable law. If you are not the intended recipient(s), you are notified that the dissemination, distribution or copying of this information is strictly prohibited. If you received this message in error, please notify the sender then delete this message. CC: Bro Cristina M.D. #Orders: Pelvis xray #Orders: Spine, Lumbar, MV # SIGNED BY Juan Francisco Simon (GOO)11/30/2022 10:19A Past Medical History Past Medical History: GERD/Reflux, Hyperlipidemia, Rheumatoid Arthritis (RA) Additional Past Medical History / Comment(s): low blood pressure, migraines, adrenal insufficiency takes cortef, pituitary tumor, omiglia defect r/t growth hormone, History of Any Multi-Drug Resistant Organisms: None Reported Past Surgical History: Appendectomy, Cholecystectomy, Hysterectomy Additional Past Surgical History / Comment(s): Claudio Fundoplication Past Anesthesia/Blood Transfusion Reactions: Motion Sickness Additional Past Anesthesia/Blood Transfusion Reaction / Comment(s): no hx blood transfusion Smoking Status: Current every day smoker - Past Family History Mother Family Medical History: No Reported History Father Family Medical History: No Reported History, Memory Impairment Additional Family Medical History / Comment(s): father's dad had colon CA Medications and Allergies Home Medications Medication Instructions Recorded Confirmed Type Hydrocortisone [Cortef] 10 mg PO TID@0700,1100,1500 03/22/22 12/22/22 History Midodrine [ProAmatine] 5 tab PO TID@0700,1100,1500 03/22/22 12/22/22 History Escitalopram [Lexapro] 20 mg PO DAILY 04/09/22 12/22/22 History Omeprazole 20 mg PO BID 08/09/22 12/22/22 History Rimegepant Sulfate [Nurtec Odt] 75 mg PO DAILY PRN 08/09/22 12/22/22 History tiZANidine [Zanaflex] 4 mg PO Q8HR PRN 30 Days #60 tab 08/12/22 12/22/22 Rx Ondansetron [Zofran] 4 mg PO DAILY PRN 09/05/22 12/22/22 History busPIRone HCL 15 mg PO BID 09/05/22 12/22/22 History traMADol HCL [Ultram] 50 mg PO TID PRN 12/22/22 12/22/22 History Allergies Allergy/AdvReac Type Severity Reaction Status Date / Time bee venom protein (honey bee) Allergy Anaphylaxis Verified 12/22/22 09:34 COVID-19 vaccine, mRNA, Allergy Anaphylaxis Verified 12/22/22 09:34 [id number], [From Moderna COVID-19 (6-11yr)(EUA)] cephalexin monohydrate AdvReac Swelling Verified 12/22/22 08:50 [From Keflex] codeine AdvReac Itching Verified 12/22/22 08:50 erythromycin base AdvReac Swelling Verified 12/22/22 08:50 [Erythromycin Base] Sulfa (Sulfonamide AdvReac Swelling Verified 12/22/22 08:50 Antibiotics) Physical Examination Osteopathic Statement: *. No significant issues noted on an osteopathic structural exam other than those noted in the History and Physical/Consult.
[~2022-12-27 05:53] MED LIST changes: -LACTATED RINGERS 1,000 ML IV SCH; +Pre Op ABX Message 1 EACH MISC MISCELLANE ONE
[2022-12-27] MEDS ORDERED: LIDOCAINE 1% (10MG/ML) FOR IV START INTRADERMA PRN (06:07)
[2022-12-27] MEDS ORDERED: MIDAZOLAM 2 MG/2 ML VIAL IV PRN (06:07)
[2022-12-27] MEDS ORDERED: DEXAMETHASONE SOD PHOSPHATE 4 MG/ML 1 ML VIAL IV ONE (06:07)
[2022-12-27] MEDS ORDERED: LACTATED RINGERS 1,000 ML IV SCH (06:07)
[2022-12-27] MEDS ORDERED: ONDANSETRON 4 MG/2 ML VIAL IVP ONE (06:07)
[2022-12-27 06:38] LABS: Glucose,Whole Blood 97 mg/dL (70-110)
[2022-12-27 06:39] VITALS: TEMP 97.1
[2022-12-27] MEDS ORDERED: HYDROCORTISONE SUCCINATE 100 MG/2 ML VIAL IVP ONE (06:44)
[2022-12-27] MEDS ORDERED: HYDROmorphone 0.5 MG/0.5 ML SYRINGE IVP PRN (07:00)
[2022-12-27] MEDS ORDERED: MIDAZOLAM 2 MG/2 ML VIAL ONE (07:20)
[2022-12-27] MEDS ORDERED: KETAMINE 10 MG/ML 20 ML VIAL ONE (07:20)
[2022-12-27] MEDS ORDERED: PROPOFOL 10 MG/ML 20 ML VIAL IV ONE (07:20)
[2022-12-27] MEDS ORDERED: fentaNYL (PF) 50 MCG/ML 2 ML AMP ONE (07:20)
[2022-12-27] MEDS ORDERED: IOPAMIDOL-370 100ML BTL INJ ONE (07:41)
[2022-12-27] MEDS ORDERED: LIDOCAINE 0.5%-EPI 1:200,000 50 ML VIAL INTRAARTIC ONE (07:42)
[2022-12-27] MEDS ORDERED: BUPIVACAINE (PF) 0.25% 30 ML VIAL SQ ONE (07:42)
[2022-12-27] MEDS ORDERED: methylPREDNISolone ACETATE 40 MG/ML 1 ML VIAL INTRAARTIC ONE (07:42)
[2022-12-27 08:11] VITALS: BP 116/72; PULSE 76; RESP 18
--- NOTE | 2022-12-27 08:28 | FL ---
Intraoperative/procedural fluoroscopic services were provided. Total fluoroscopy time is 2 seconds wi th a total of 2 submitted images to PACS. Please see the operative/procedural note for further detail s. DAP: [id number]
--- NOTE | 2022-12-28 07:52 | P.OP ---
Date of Procedure: 12/27/22 Preoperative Diagnosis: 1. LEFT SIJ OA, degenerative Postoperative Diagnosis: 1. LEFT SIJ OA, degenerative Procedure(s) Performed: 1. Left SIJ injections under floroscopic guidance with needle localization Anesthesia: local Surgeon: Juan Francisco Simon Estimated Blood Loss (ml): 2 IV fluids (ml): 200 Urine output (ml): 0 Pathology: none sent Condition: stable Disposition: PACU Indications for Procedure: Ms. Hardy is presenting for evaluation of low back pain. It was my pleasure to have seen and examined Ms. Hardy. In our visit today we have had a chance to go over subjective complaints, physical examination findings and treatments including the natural course history without intervention and various interventional options. The patients imaging demonstrates: XRay Lumbar Multiview (AP, Lateral, Flexion, Extension) with AP pelvis; 5 views taken at [facility] on 11/24/22 of Lumbar, Pelvis Spine: Images reviewed with the patient. There is mild to moderate spondylosis at L5- S1 with some height collapse and mild facet arthropathy. OVerall alignment maintained in the sagittal and coronal planes. No fractures. No lesions noted. AP pelvis shows congruent pelvis. b/l SIJ show some sclerotic borders and subchondral cyst changes due to OA. No fractures. No lesions. On physical exam, Ms. Hardy demonstrates: Patient reports a burning, aching, stabbing and shooting lumbar pain with an increase in symptoms in the last 4 months. In addition to their lumbar pain, they do report that it radiates into the buttocks and groin, without numbness and tingling. They state that their hip is in constant pain as well. Overall the patient has seen a progressive increase in symptoms since their onset. Sacroilliac Tenderness: yes Laterality: Left +Compression +Distraction +Hip Thrust +FABER4 I have explained to the patient that as their condition progresses it will cause further neurological deficits and eventual paralysis. Based on the patients imaging, physical exam, and the rapid progression and disabling nature of their symptoms, at this time I recommend surgery in the form of a: Left SI Joint Injections. I discussed the risk and benefits of this procedure at length with Ms. Hardy. The patient agreed to considered pursuing the procedure abovementioned. Prior to surgery, she should follow up with her PCP (Cardio, ID, IM etc) for clearance. Questions were invited and answered, and the patient wishes to proceed as outlined below. Currently, I am recommendin. Left SI Joint Injections Description of Procedure: SIJ injection The patient was seen and examined in the preoperative area. All preoperative protocols were followed. Informed consent was obtained risks and benefits of the procedure were discussed at length. Risks including bleeding infection damage to the surrounding tissue and risk of reoperation were discussed with the patient. Risk of anesthesia up to and including was a discussed with the patient. These are outlined in the risk review. They were willing to accept these risks and all of the risks of surgery. The patient was seen and evaluated by the anesthesia team who deemed them fit for surgery. The site was marked, the patient was willing to proceed with the procedure. The patient was transferred to the operative suite by the Department of anesthesia. They were then drifted off to sleep by the department anesthesia and sedation with local was performed. The patient tolerated this well. Once confirmation of lines and ventilation the patient was transferred to a prone Chris table very carefully. All bony prominences including wrists, elbows, axilla, chest, hips, and thighs, and feet were padded very well. Special attention was paid to the genitalia and these were padded accordingly. SCDs were placed on bilateral lower extremities and were connected. Arms were well padded and placed on arm boards up and out in the 90/90 position. Once in position, again we confirmed good ventilation capabilities and that lines were running appropriately. The patient's lumbopelvic spine was then exposed. 1010s were placed outlining the incision site. Standard alcohol was used to clean the incision site and allowed to dry. C-arm was used to biomark the patient and confirm level for incision which was marked with a skin marker. Operative briefing was performed with all teams and everyone in agreement to proceed. The patient was then prepped and draped in a normal sterile fashion. Timeout was then performed and all parties were in agreement with the procedure to be performed. Biplanar fluoroscopy was used to identify the bilateral SI joints which were then accessed with a 18-gauge needle after anesthetic was placed into the subcutaneous tissue in the form of 1% with epinephrine of lidocaine along with a mixture of cortical percent Marcaine without epinephrine. Once there is good anesthesia and the SI joints were accessed Isovue was used to confirm within the joint space. Once this was confirmed 40 of Kenalog along with a mixture of lidocaine and Marcaine were injected into the SI joint. Patient remained stable the entire time without any radicular symptoms during the injection phase. The needles were withdrawn and the area cleaned and Band-Aids placed. The patient was transferred back to their hospital bed atraumatically. Patient was then awakened and extubated by the department of anesthesia having tolerated the procedure very well with no complications. They were transferred to the postoperative care unit in stable condition.
== END 2022-12-27 08:48 | disposition home or self-care (01) ==
LOC: OR 05:53
PROVIDERS: ATTEND Orthopaedic Surgery
DX: M47.898 Other spondylosis, sacral and sacrococcygeal region (principal); F17.200 Nicotine dependence, unspecified, uncomplicated; E78.5 Hyperlipidemia, unspecified; K21.9 Gastro-esophageal reflux disease without esophagitis; M06.9 Rheumatoid arthritis, unspecified; Z90.49 Acquired absence of other specified parts of digestive tract; Z90.710 Acquired absence of both cervix and uterus; Z80.0 Family history of malignant neoplasm of digestive organs; Z91.030 Bee allergy status; Z88.7 Allergy status to serum and vaccine; Z88.1 Allergy status to other antibiotic agents; Z88.5 Allergy status to narcotic agent; Z88.2 Allergy status to sulfonamides; Z79.899 Other long term (current) drug therapy
CPT/HCPCS: 27096; J2250; J1030; J1720; J2405; J3010; J2704; Q9967

== ENCOUNTER 2023-02-07 06:16 | Day surgery (SDC) | payer OTHER ==
--- NOTE | 2023-02-07 06:40 | P.HPOR ---
History of Present Illness H&P Date: 02/07/23 Title: [facility] Date of :[birth year] R14 Allergies: Age: 57 year Height: 5'8" Weight: 195 lbs BMI: 29.65 kg/m2 Occupation: Disabled VAS: 6 CHIEF COMPLAINT: Low back pain DOI: N/A DOS: N/A Duration of current treatment regiment: N/A HISTORY : Xrays New xrays taken in office Trauma or injury No Work-Related No Pain description aching, burning, sharp, increasing . Location diffuse Patient notes that their pain radiates to the buttocks and groin Activity Modification yes Hand Dominance right TREATMENTS COMPLETED: 6 weeks of PT completed? Month and Year of last PT date? No Physician directed home exercise completed? No Medications yes List: Flexeril and Tylenol Alternative interventions Chiropractic: No Massage therapy: No R.I.C.E: yes Brace: No Injections No RFA:No SUBJECTIVE: Mrs. Hardy presents today for her second injection in her left SIJ. Her previous injection was 6 weeks ago. She got decent relief from this ~80-90% for about 1-2 weeks but after this the pain has started to come back and is in the same spot and of the same nature as previously. She is disappointed that this is the case but is hopeful this neck shot helps. We discussed that if the second shot does not help or is transient as well, but at least gives her the same amount of relief, we can reasonably move forward with fusion of this joint. She understands and is comfortable with this for our future plans. We discussed risks and benefits as outlined in the risk review below again. She is OK with these. We discussed that insurance no longer pays for sedation for these procedures and she is ammendable to this. We will make her as comfortable as we can. She is ready and willing to proceed. HPI: 12/27/22: Ms. Hardy presents to the office for an evaluation of their low back pain. Patient reports a burning, aching, stabbing and shooting lumbar pain with an increase in symptoms in the last 4 months. In addition to their lumbar pain, they do report that it radiates into the buttocks and groin, without numbness and tingling. They state that their hip is in constant pain as well. Overall the patient has seen a progressive increase in symptoms since their onset. Ms. Hardy symptoms are exacerbated with activity and ambulation, due to this they note that it is increasingly difficult for Ms. Hardy to complete many of their daily tasks. Patient is having moderate sleep disturbances as well due to their ongoing pain and associated symptoms. Regarding treatments, the patient has previously trialed the TENS unit without relief of their symptoms. Patient denies trialing any other modalities at this time. For their symptoms, the patient has been taking Flexeril 5mg and Tylenol. Otherwise the patient denies any f/c/sob/cp, no incision concerns, no bladder or bowel retention/incontinence, no perineal numbness/tingling, and ambulates independently. The patients' past social, medical, family, surgical history, as well as review of systems, have been reviewed. Please refer to the Neurosurgery History and Physical form that has been scanned in to our electronic medical record system. 14 points review of systems completed and as stated in HPI, all other systems reviewed are negative. Social History: Smoking: current smoker P3 Alcohol: none P3 Family History: Reviewed, see appropriate section of the chart for details. Past Medical History: Reviewed, see appropriate section of the chart for details. Current Medications: Rx: busPIRone 5 mg tablet Ref: 0 Instructions: take 1 tablet (5 mg) by oral route 2 times per day Rx: Emgality Syringe Ref: 0 Rx: escitalopram 20 mg tablet Ref: 0 Instructions: take 1 tablet (20 mg) by oral route once daily Rx: hydrocortisone 10 mg tablet Ref: 0 Instructions: take 1 tablet (10 mg) by oral route 2 times per day with food Rx: midodrine 2.5 mg tablet Ref: 0 Instructions: take 1 tablet (2.5 mg) by oral route 3 times per day Rx: omeprazole 20 mg tablet,delayed release Ref: 0 Rx: Flexeril Ref: 0 Instructions: as directed Rx: Tylenol Extra Strength 500 mg tablet Ref: 0 Instructions: take 2 tablets (1,000 mg) by oral route every 6 hours as needed P1 PHYSICAL EXAMINATION: General: Awake, alert, appropriate for age, in no acute distress. HEENT: No unusual neck masses around region of lateral neck triangle, thyroid, supraclavicular groove Extremities:Skin warm and dry without acute lesions, coloration, temperature, skin intact, no tenderness or erythema Integument: Hairy patches:ABSENT Dorsal skin dimples:ABSENT Cafe au lait spots:ABSENT Surgical incisions: none Palpation: Please see Pain drawing on Intake sheet for further detail. Midline spinal tenderness: No E6 Cervical Tenderness: No E6 Paralumbar tenderness: No E6 Parathoracic tenderness: No E6 Buttocks tenderness: No E6 Sacroilliac Tenderness: yes Laterality: Left +Compression +Distraction +Hip Thrust +FABER4 POSTURAL and MUSCULO-SKELETAL EVALUATION: Coronal Balance: NEUTRAL Recumbent testing: Patient isable to lay flat on back Sagittal Balance: NEUTRAL Shoulder Profile: LEVEL Pelvic Girdle: LEVEL Neck ROM: UNRESTRICTED Lumbar ROM: UNRESTRICTED Shoulder ROM:Symmetrical Hip ROM: Symmetrical Knee ROM:Symmetrical Hands: Normal appearance, symmetrical Feet: Normal appearance, Symmetrical VASCULAR STATUS : LEFT RIGHT Wrist Pulses INTACT INTACT Pedal Pulses (Dors. pedis & post.tibialis) INTACT INTACT Color NORMAL NORMAL Edema Absent Absent NEUROLOGIC EXAMINATION: Mental Status:Awake and alert, fully oriented, with normal attention, concentration and memory, and fluent, appropriate speech. Cranial Nerves: I: Olfactory not tested. II: Visual acuity normal, no visual field deficit noted with confrontation. III,IV: Normal pupillary reflexes & intact extraocular movements without nystagmus. V,: Intact symmetrical facial sensation. VII: Intact symmetrical facial motor movement VIII: Hearing intact. IX,X: Intact gag, swallow, & normal voice. XI: Sternocleidomastoid, trapezius function intact. XII: Tongue midline with normal movements. L'hermitte's Sign: Negative / absent Spurling'Sign: Absent bilaterally. Cubital percussion test: Absent bilaterally. Ruby-Tinel sign - Carpal region: Absent bilaterally. Straight Leg Raising: Absent bilaterally. Crossed straight leg raise: negative MOTOR EXAM (0-5/5, N/T Muscle appearance:Symmetrical, without signs of atrophy or dystrophy UPPER EXTREMITY RIGHT LEFT Shoulder Abduction 5/5 5/5 Biceps 5/5 5/5 Triceps 5/5 5/5 Wrist Extension 5/5 5/5 Hand Intrnsics 5/5 5/5 Senior Tax Analyst 5/5 5/5 Hand and finger dexterity intact bilaterally?yes Disdiadochokinesis examination negative bilaterally? yes LOWER EXTREMITY RIGHT LEFT Hip Flexion 5/5 5/5 Knee Extension 5/5 5/5 Knee Flexion 5/5 5/5 Dorsiflexion 5/5 5/5 Plantarflexion 5/5 5/5 EHL 5/5 5/5 FHL 5/5 5/5 Toe heel walk / heel-toe walk intact while maintaining satisfactory balance? yes Squatting/straightening w/o assistance to a min of 60 degree knee flexion? yes Single leg stance: intact REFLEXES(0-4/2, NT)Upper ExtremityLower Extremity Right 2 2 Left 2 2 Pathological Reflexes RIGHT LEFT Ruby's Absent Absent Clonus Absent Absent Babinski Absent Absent Sensory system (0-4, N/T) Test type RU CORNELIUS RL LL Joint-Position 2 2 2 2 Vibration 2 2 2 2 Pain & LT sense 2 2 2 2 Dermatomal Deficit: None None None None Gait and Functional Evaluation: Ambulatory aids: Independent Romberg's test: Intact bilaterally Steady Gait RADIOGRAPHIC STUDIES: XRay Lumbar Multiview (AP, Lateral, Flexion, Extension) with AP pelvis; 5 views taken at [facility] on 11/24/22 of Lumbar, Pelvis Spine: Images reviewed with the patient. There is mild to moderate spondylosis at L5- S1 with some height collapse and mild facet arthropathy. OVerall alignment maintained in the sagittal and coronal planes. No fractures. No lesions noted. AP pelvis shows congruent pelvis. b/l SIJ show some sclerotic borders and subchondral cyst changes due to OA. No fractures. No lesions. IMPRESSION: It was my pleasure to have seen and examined Iram. I reviewed the patient's clinical syndrome, physical findings, and imaging studies during the appointment today. It is my impression that the patient has a diagnosis of. 1. Left Sacroiliitis 2.L5-S1 Spondylosis I outlined the natural course history without intervention and various interventional options. PLAN: Based on my findings I suggest the following course of action: -Physical Therapy: The patient was given a script for lumbar and SI joint PT to work on balance, core strengthening, gait and other modalities to help with their current condition. They were encouraged to follow the PTs instructions carefully and to continue to exercise at home. -I discussed treatment options with the patient, including operative and non- operative options, and they have elected to proceed with the following surgical procedure: Left SI Joint Injections The indications, risks, benefits, and alternatives to surgery were discussed with the patient and family at length. Specifically (but not limited to) the risks of infection, stiffness, recurrence of symptoms, need for revision surgery, local numbness, neurovascular injury, and blood clots were discussed. The patient's questions were answered.The decision to proceed was made. Consent will be obtained for the procedure. -Ambulate daily -Take medications as directed -Ice and rest for pain and swelling control. Spine Surgery Risk Review Ms. Hardy is presenting for evaluation of low back pain. It was my pleasure to have seen and examined Ms. Hardy. In our visit today we have had a chance to go over subjective complaints, physical examination findings and treatments including the natural course history without intervention and various interventional options. The patients imaging demonstrates: XRay Lumbar Multiview (AP, Lateral, Flexion, Extension) with AP pelvis; 5 views taken at [facility] on 11/24/22 of Lumbar, Pelvis Spine: Images reviewed with the patient. There is mild to moderate spondylosis at L5- S1 with some height collapse and mild facet arthropathy. OVerall alignment maintained in the sagittal and coronal planes. No fractures. No lesions noted. AP pelvis shows congruent pelvis. b/l SIJ show some sclerotic borders and subchondral cyst changes due to OA. No fractures. No lesions. On physical exam, Ms. Hardy demonstrates: Patient reports a burning, aching, stabbing and shooting lumbar pain with an increase in symptoms in the last 4 months. In addition to their lumbar pain, they do report that it radiates into the buttocks and groin, without numbness and tingling. They state that their hip is in constant pain as well. Overall the patient has seen a progressive increase in symptoms since their onset. Sacroilliac Tenderness: yes Laterality: Left +Compression +Distraction +Hip Thrust +FABER4 I have explained to the patient that as their condition progresses it will cause further neurological deficits and eventual paralysis. Based on the patients imaging, physical exam, and the rapid progression and disabling nature of their symptoms, at this time I recommend surgery in the form of a: Left SI Joint Injections. I discussed the risk and benefits of this procedure at length with Ms. Hardy. The patient agreed to considered pursuing the procedure abovementioned. Prior to surgery, she should follow up with her PCP (Cardio, ID, IM etc) for clearance. Questions were invited and answered, and the patient wishes to proceed as outlined below. Currently, I am recommendin. Left SI Joint Injections 2.Follow up with PCP for surgical clearance 3.Review of surgical risks and benefits as well as an educational packet on the proposed surgical procedure. Risks: All surgical procedures come with inherent risks, including those related to positioning, anesthesia, intraoperative findings, and postoperative complications. It is important to understand that surgery does not come with any guarantee of a successful outcome as complications and adverse events are always possible. The patient was given a handout in office today discussing the surgical procedure and risks associated with the intervention, both of which were discussed with the patient. These risks include but are not limited to the following: * Experiencing same, different or even worse symptoms in back, neck, arms, or legs compared to before surgery. Requiring further surgery or other forms of treatment presently or at some time in the future at same or other levels of the intended spine surgery. On an extreme but fortunately relatively rare basis severe complication such as blindness, stroke, heart attack, temporary and/or permanent nerve injury, paralysis, coma, or may occur, sometimes without known explanation. Surgical complications may include but are not limited to risk of infection, fluid accumulation in the surgical dissection site, including a seroma or hematoma, that requires additional surgery, wound drainage, bleeding, new numbness or weakness, vision changes/loss, spinal fluid leakage, non-healing and/or infected incision, headaches, difficulty or inability to swallow, hoarseness, hemopneumothorax, pneumothorax, impotence, retrograde ejaculation, vaginal dryness; injury to nerves, spinal cord, blood vessels, lymphatics or other vital organs (i.e., bowel injury, injury to the great vessels); heterotopic bone formation; complications related to the hardware such as screws, rods, cages including misplaced hardware, device failure, instrumentation at the wrong spine level, hardware fracture/breakage, or hardware loosening; vertebral failure of the spinal column above or below the newly placed hardware; retained surgical instrumentations or devices and the need for further surgery. * Medical risks of the planned spine surgery include but are not limited to generalized Infections to the whole body or local areas outside of the surgical site (sepsis), heart attack, bleeding, anaphylaxis, meningitis, seizure, epilepsy, hearing loss, burn rivers, laceration of the head or other areas of the body, bruising, hypersensitivity of the skin, bladder over distension; allergic reaction; shoulder injury related to positioning; fat, blood and air clots to other areas of the body like heart, lungs, brain; failure of internal organs such as lungs, kidneys, liver and excessive bleeding. If blood transfusions are necessary, note that transfusions may cause intolerance reactions such as anaphylaxis or other complex reactions. Despite best efforts, the results of spine surgery might not heal in terms of bone, soft tissues such as skin, fascia, ligaments, and joints. Additionally, in order to achieve best possible results, spine surgery may be carried out beyond the initially planned levels and involve decompression, fusion including insertion of hardware at levels other than the original intended area of surgical interest change some portions of the procedure in order to ensure the best possible outcomes. With spine surgery and spinal fusion, there are different off label uses of instrumentation (devices, implants and hardware) as well as biological substances (bone morphogenic proteins, demineralized bone matrix) as well as using extra bone from allograft sources (i.e. cadaver bone) or autograft (iliac crest bone, ribs, or the spine itself). The patient has been given information about these practices and their inherent risks and benefits. [facility] is an educational center that serves as a training facility for neurosurgical and orthopedic UTILIZATION MANAGEMENT NURSE and Nursing students. Physician assistants are medically trained surgical providers who function in the outpatient, inpatient, and operating room setting under the direct supervision of the attending surgeon. [facility] has multiple operating rooms with single and overlapping rooms running daily. They currently function under the required guidelines as produced by the [facility] Finance Committee with regards to the overlapping rooms and will continue to comply with changes to this policy as they occur. The requirements include and are complied with as follows: (1) the critical portions of the overlapping rooms will not occur at the same time, (2) the attending physician will be physically present during the critical portions of the procedure and immediately available during the entire case, and (3) a back-up attending is designated should the primary attending not be immediately a vailable. The patient has had a chance to review all the listed information, has been given print outs detailing this information, and has had all his/her questions answered to their satisfaction. It was my pleasure to have seen and examined Ms. Hardy. In our visit today we have had a chance to go over my understanding of our patient's current condition, the natural course history without intervention and various interventional options. Questions were invited and answered, and the patient wishes to proceed as outlined above. I have seen and examined the patient for 25 minutes and we have spent more than 50% of the time in repeat and detailed counseling about the patient's condition, its natural course history with out and as much as can be predicted with surgery and re-review of various surgical treatment options. In conclusion, Ms. Hardy requested we proceed with the above suggested surgery and are willing to accept risks and limitations of the suggested surgery as nature of the disease process and our best attempts at treatment for the condition. Thank you again for allowing us to be part of your patient's care. Please don't hesitate to contact me if you have any further questions. Follow- up: 4 Weeks Post-Procedure Patient Education: (Informational booklet, instructions, etc) given at today's appointment: Yes .ED:Patient Education: Y Medications Reviewed: YES In our visit today Ms. Hardy and I have had a chance to go over my understanding of the patient's current condition, the natural course history without intervention and various interventional options. Questions were invited and answered, and the patient wishes to proceed as outlined above. I will be sure to keep you updated afterMs. Hardy returns here for further follow-up. Thank you again for your referral. Please do not hesitate to contact me if you have any further questions. Signed and authenticated by: Juan Francisco [facility] [address] [place] [id number] This message is confidential, intended only for the named recipient(s) and may contain information that is privileged or exempt from disclosure under applicable law. If you are not the intended recipient(s), you are notified that the dissemination, distribution or copying of this information is strictly prohibited. If you received this message in error, please notify the sender then delete this message. CC: Bro Cristina M.D. Past Medical History Past Medical History: Cancer, GERD/Reflux, Hyperlipidemia, Osteoarthritis (OA), Rheumatoid Arthritis (RA), Sleep Apnea/CPAP/BIPAP Additional Past Medical History / Comment(s): low blood pressure, migraines, adrenal insufficiency takes cortef, pituitary tumor, omiglia defect r/t growth h ormone, probable sleep apnea, insurance doesn't cover testing, uses oxygen concentrator @[facility], skin cancer History of Any Multi-Drug Resistant Organisms: None Reported Past Surgical History: Appendectomy, Cholecystectomy, Hysterectomy Additional Past Surgical History / Comment(s): Claudio Fundoplication, pain procedures Past Anesthesia/Blood Transfusion Reactions: Motion Sickness Additional Past Anesthesia/Blood Transfusion Reaction / Comment(s): no hx blood transfusion Smoking Status: Current every day smoker - Past Family History Mother Family Medical History: No Reported History Father Family Medical History: No Reported History Additional Family Medical History / Comment(s): father's dad had colon CA Medications and Allergies Home Medications Medication Instructions Recorded Confirmed Type Hydrocortisone [Cortef] 10 mg PO TID@0700,1100,1500 03/22/22 02/06/23 History Midodrine [ProAmatine] 5 mg PO TID@0700,1100,1500 03/22/22 02/06/23 History Escitalopram [Lexapro] 20 mg PO DAILY 04/09/22 02/06/23 History Omeprazole 20 mg PO BID 08/09/22 02/06/23 History Rimegepant Sulfate [Nurtec Odt] 75 mg PO DAILY PRN 08/09/22 02/06/23 History Ondansetron [Zofran] 4 mg PO DAILY PRN 09/05/22 02/06/23 History busPIRone HCL 15 mg PO BID 09/05/22 02/06/23 History traMADol HCL [Ultram] 50 mg PO TID PRN 12/22/22 02/06/23 History Gabapentin [Neurontin] 300 mg PO HS 02/06/23 02/06/23 History Allergies Allergy/AdvReac Type Severity Reaction Status Date / Time bee venom protein (honey bee) Allergy Anaphylaxis Verified 02/07/23 06:34 COVID-19 vaccine, mRNA, Allergy Anaphylaxis Verified 02/07/23 06:34 [id number], [From Moderna COVID-19 (6-11yr)(EUA)] cephalexin monohydrate AdvReac Swelling Verified 02/07/23 06:34 [From Keflex] codeine AdvReac Itching Verified 02/07/23 06:34 erythromycin base AdvReac Swelling Verified 02/07/23 06:34 [Erythromycin Base] Sulfa (Sulfonamide AdvReac Swelling Verified 02/07/23 06:34 Antibiotics) Physical Examination Osteopathic Statement: *. No significant issues noted on an osteopathic structural exam other than those noted in the History and Physical/Consult.
[2023-02-07 06:44] VITALS: RESP 16; TEMP 97.7
[2023-02-07] MEDS ORDERED: LIDOCAINE 2%-EPI 1:100,000 20 ML VIAL SQ ONE (07:34)
[2023-02-07] MEDS ORDERED: BUPIVACAINE (PF) 0.25% 30 ML VIAL SQ ONE (07:35)
[2023-02-07] MEDS ORDERED: IOPAMIDOL-370 100ML BTL MISCELLANE ONE (07:35)
[2023-02-07] MEDS ORDERED: TRIAMCINOLONE ACETONIDE 40 MG/ML 1 ML VIAL INTRADERMA ONE (07:36)
[2023-02-07 07:48] VITALS: BP 110/66; PULSE 45
--- NOTE | 2023-02-07 07:59 | P.OP ---
Date of Procedure: 02/07/23 Preoperative Diagnosis: Left SIJ OA Left SIJ pain Postoperative Diagnosis: Left SIJ OA Left SIJ pain Procedure(s) Performed: Left SIJ injection underflouroscopic guidance Anesthesia: local Surgeon: Juan Francisco Simon Estimated Blood Loss (ml): 2 IV fluids (ml): 0 Urine output (ml): 0 Pathology: none sent Condition: stable Disposition: PACU Indications for Procedure: 57 yo female with left SIJ pain for several years has gotten worse in the last year. She has tried PT, Meds and has not gotten better. She continues to have pain that is debilitating in this area and cannot do her ADLs due to this. She has presented today for SIJ inject on the left. She states she is ready and willing to proceed. She has reviewed risks as outlined in risk review. Description of Procedure: LEFT SIJ injection The patient was seen and examined in the preoperative area. All preoperative protocols were followed. Informed consent was obtained risks and benefits of the procedure were discussed at length. Risks including bleeding infection damage to the surrounding tissue and risk of reoperation were discussed with the patient. Risk of anesthesia up to and including was a discussed with the patient. These are outlined in the risk review. They were willing to accept these risks and all of the risks of surgery. The patient was seen and evaluated by the anesthesia team who deemed them fit for surgery. The site was marked, the patient was willing to proceed with the procedure. The patient was transferred to the operative suite by the Department of anesthesia. They were then drifted off to sleep by the department anesthesia and sedation with local was performed. The patient tolerated this well. Once confirmation of lines and ventilation the patient was transferred to a prone Chris table very carefully. All bony prominences including wrists, elbows, axilla, chest, hips, and thighs, and feet were padded very well. Special attention was paid to the genitalia and these were padded accordingly. SCDs were placed on bilateral lower extremities and were connected. Arms were well padded and placed on arm boards up and out in the 90/90 position. Once in position, again we confirmed good ventilation capabilities and that lines were running appropriately. The patient's lumbopelvic spine was then exposed. 1010s were placed outlining the incision site. Standard alcohol was used to clean the incision site and allowed to dry. C-arm was used to biomark the patient and confirm level for incision which was marked with a skin marker. Operative briefing was performed with all teams and everyone in agreement to proceed. The patient was then prepped and draped in a normal sterile fashion. Timeout was then performed and all parties were in agreement with the procedure to be performed. Biplanar fluoroscopy was used to identify the LEFT SI joints which were then accessed with a 22-gauge needle after anesthetic was placed into the subcutaneous tissue in the form of 1% with epinephrine of lidocaine along with a mixture of cortical percent Marcaine without epinephrine. Once there is good anesthesia and the SI joints were accessed Isovue was used to confirm within the joint space. Once this was confirmed 40 of Kenalog along with a mixture of lidocaine and Marcaine were injected into the SI joint. Patient remained stable the entire time without any radicular symptoms during the injection phase. The needles were withdrawn and the area cleaned and Band-Aids placed. The patient was transferred back to their hospital bed atraumatically. Patient was then awakened and extubated by the department of anesthesia having tolerated the procedure very well with no complications. They were transferred to the postoperative care unit in stable condition.
--- NOTE | 2023-02-07 08:22 | FL ---
Intraoperative/procedural fluoroscopic services were provided. Total fluoroscopy time is 4.2 seconds with a total of 6 submitted images to PACS. Please see the operative/procedural note for further deta ils. DAP: [id number] [id number]
== END 2023-02-07 08:08 | disposition home or self-care (01) ==
LOC: OR 06:16
PROVIDERS: ATTEND Orthopaedic Surgery
DX: M46.1 Sacroiliitis, not elsewhere classified (principal); M47.817 Spondylosis without myelopathy or radiculopathy, lumbosacral region; F17.210 Nicotine dependence, cigarettes, uncomplicated; Z79.1 Long term (current) use of non-steroidal anti-inflammatories (NSAID); Z79.891 Long term (current) use of opiate analgesic; Z79.899 Other long term (current) drug therapy; E78.5 Hyperlipidemia, unspecified; K21.9 Gastro-esophageal reflux disease without esophagitis; M06.9 Rheumatoid arthritis, unspecified; G47.30 Sleep apnea, unspecified; G43.909 Migraine, unspecified, not intractable, without status migrainosus; E27.40 Unspecified adrenocortical insufficiency; Z85.828 Personal history of other malignant neoplasm of skin; Z91.030 Bee allergy status; Z88.7 Allergy status to serum and vaccine; Z88.2 Allergy status to sulfonamides; Z88.1 Allergy status to other antibiotic agents; Z88.5 Allergy status to narcotic agent
CPT/HCPCS: 27096; J3301; Q9967

== ENCOUNTER 2023-05-09 08:20 | Day surgery (SDC) | payer OTHER ==
--- NOTE | 2023-05-08 19:54 | P.HPOR ---
History of Present Illness H&P Date: 04/28/23 Chief Complaint: b/l SIJ OA, pain .D:Date: 04/28/23 : 12:52pm .T:Title: *[facility]... COPY... Date of :[birth year] R14 Allergies: Age: 57 year Height: 5'8" Weight: 195 lbs BP:118/78 BMI: 29.65 kg/m2 Occupation: N/A VAS: 6 CHIEF COMPLAINT: S/P second left SI injection on 02/07/2023 DOI: N/A DOS: N/A Duration of current treatment regiment:N/A HISTORY: Xrays No new xrays taken in office Trauma or injury No Work-Related No Pain description Aching, burning, & sharp Location Diffuse Patient notes that their pain radiates to the buttocks and left lower extremity Activity Modification Yes Hand Dominance Right TREATMENTS COMPLETED: 6 weeks of PT completed? Month and Year of last PT date? No Physician directed home exercise completed? No Medications Yes; List: Tramadol Alternative interventions Chiropractic:No Massage therapy:No R.I.C.E: yes Brace:No Injections No RFA:No SUBJECTIVE: Ms. Hardy returns to the office today for a pre-operative appointment preceding her left MIS SI joint fusion. Patient continues to report pain in the left lumbar region that radiates into the left groin, left buttock and posterior aspect of the left lower extremity. The patient reports experiencing approximately 85% relief following the second left SI joint injection from 02/07/23 and about 80 to 85% relief for approximately 3 weeks following her first left SI joint injection performed on 12/27/2022. The patient notes that her pain worsens with prolonged sitting, when going from a seated to standing position, and when going up steps. The patient notes that her current symptoms make it difficult for her to complete many of her activities of daily living. The patient reports experiencing severe sleep disturbances due to her ongoing pain and associated symptoms. Regarding treatments, the patient has previously trialed at home heat/ice therapies, activity modification, and utilizing a TENs unit without relief of their symptoms. The patient has also trials traction with approximately 3-4 hours of relief. The patient denies trialing any other modalities at this time. For their symptoms, the patient has been taking Tramadol. Otherwise the patient denies any f/c/sob/cp, no incision concerns, no bladder or bowel retention/incontinence, no perineal numbness/tingling, and ambulates independently today. HISTORY: Ms. Hardy returns to the office on 02/22/23 for a re-check on her low back pain after receiving a second left SI joint injection on 02/07/2023. The patient reports experiencing approximately 85% relief following the injection. The patient notes that she experienced about 80 to 85% relief for approximately 3 weeks following her first left SI joint injection performed on 12/27/2022. The patient notes continued left-sided low back pain that radiates down into the left buttock and posterior aspect of the left lower extremity. The patient notes that her pain worsens with prolonged sitting, when going from a seated to bryan ding position, and when going up steps. The patient notes that her current symptoms make it difficult for her to complete many of her activities of daily living. The patient reports experiencing moderate to severe sleep disturbances due to her ongoing pain and associated symptoms. Regarding treatments, the patient has previously trialed at home heat/ice therapies, activity modification, and utilizing a TENs unit without relief of their symptoms. The patient has also trials traction with approximately 3-4 hours of relief. The patient denies trialing any other modalities at this time. For their symptoms, the patient has been taking Tylenol, Gabapentin, Amoxicillin, and Motrin. Otherwise the patient denies any f/c/sob/cp, no incision concerns, no bladder or bowel retention/incontinence, no perineal numbness/tingling, and ambulates independently today. Ms. Hardy returns to the office on 02/02/23 for a re-check on her low back pain after receiving left SI joint injection. Patient reports having 80-85% relief for 3 weeks following the injection. Patient has also been in physical therapy for 4 weeks. Patient states she has had a decrease in night time symptoms. Ms. Hardy symptoms are exacerbated with activity and ambulation, due to this they note that it is increasingly difficult for Ms. Hardy to complete many of their daily tasks. Patient is having mild sleep disturbances as well due to their ongoing pain and associated symptoms. Regarding treatments, the patient has previously trialed the TENS unit and heat without relief of their symptoms and traction with 3-4 hours of relief. Patient denies trialing any other modalities at this time. For their symptoms, the patient has been taking Tylenol, Gabapentin, Tramadol. Otherwise the patient denies any f/c/sob/cp, no incision concerns, no bladder or bowel retention/incontinence, no perineal numbness/tingling, and ambulates independently. The patients' past social, medical, family, surgical history, as well as review of systems, have been reviewed. Please refer to the Neurosurgery History and Physical form that has been scanned in to our electronic medical record system. 14 points review of systems completed and as stated in HPI, all other systems reviewed are negative. Social History: Smoking:current smoker P3 Alcohol:none P3 Family History: Reviewed, see appropriate section of the chart for details. Past Medical History: Reviewed, see appropriate section of the chart for details. Current Medications: Rx: busPIRone 5 mg tablet Ref: 0 Rx: Emgality Syringe Ref: 0 Rx: escitalopram 20 mg tablet Ref: 0 Rx: hydrocortisone 10 mg tablet Ref: 0 Rx: midodrine 2.5 mg tablet Ref: 0 Rx: omeprazole 20 mg tablet,delayed release Ref: 0 Rx: Flexeril Ref: 0 Rx: Tylenol Extra Strength 500 mg tablet Ref: 0 P1 PHYSICALEXAMINATION: General:Awake, alert, appropriate for age, in no acute distress. HEENT: No unusual neck masses around region of lateral neck triangle, thyroid, supraclavicular groove Extremities:Skin warm and dry without acute lesions, coloration, temperature, skin intact, no tenderness or erythema Integument: Hairy patches:ABSENT Dorsal skin dimples:ABSENT Cafe au lait spots:ABSENT Surgical incisions: none Palpation: Please see Pain drawing on Intake sheet for further detail. Midline spinal tenderness: No E6 Cervical Tenderness: No E6 Paralumbar tenderness: No E6 Parathoracic tenderness: No E6 Buttocks tenderness: No E6 Sacroiliac Tenderness:Yes Laterality:Left +Compression +Distraction +Hip Thrust +FABER4 POSTURAL and MUSCULO-SKELETAL EVALUATION: Coronal Balance: NEUTRAL Recumbent testing: Patient isable to lay flat on back Sagittal Balance: NEUTRAL Shoulder Profile: LEVEL Pelvic Girdle: LEVEL Neck ROM: UNRESTRICTED Lumbar ROM: UNRESTRICTED Shoulder ROM:Symmetrical Hip ROM: Symmetrical Knee ROM:Symmetrical Hands: Normal appearance, symmetrical Feet: Normal appearance, Symmetrical VASCULAR STATUS : LEFT RIGHT Wrist Pulses INTACT INTACT Pedal Pulses (Dors. pedis & post.tibialis) INTACT INTACT Color NORMAL NORMAL Edema Absent Absent NEUROLOGIC EXAMINATION: Mental Status:Awake and alert, fully oriented, with normal attention, concentration and memory, and fluent, appropriate speech. Cranial Nerves: I: Olfactory not tested. II: Visual acuity normal, no visual field deficit noted with confrontation. III,IV: Normal pupillary reflexes & intact extraocular movements without nystagmus. V,: Intact symmetrical facial sensation. VII: Intact symmetrical facial motor movement VIII: Hearing intact. IX,X: Intact gag, swallow, & normal voice. XI: Sternocleidomastoid, trapezius function intact. XII: Tongue midline with normal movements. L'hermitte's Sign: Negative / absent Spurling'Sign: Absent bilaterally. Cubital percussion test: Absent bilaterally. Ruby-Tinel sign - Carpal region: Absent bilaterally. Straight Leg Raising: Absent bilaterally. Crossed straight leg raise: negative MOTOR EXAM (0-5/5, N/T Muscle appearance:Symmetrical, without signs of atrophy or dystrophy UPPER EXTREMITY RIGHT LEFT Shoulder Abduction 5/5 5/5 Biceps 5/5 5/5 Triceps 5/5 5/5 Wrist Extension 5/5 5/5 Hand Intrinsic 5/5 5/5 Technical Publications Manager 5/5 5/5 Hand and finger dexterity intact bilaterally?yes Disdiadochokinesis examination negative bilaterally? yes LOWER EXTREMITY RIGHT LEFT Hip Flexion 5/5 4/5 Knee Extension 5/5 4/5 Knee Flexion 5/5 4/5 Dorsiflexion 5/5 4/5 Plantarflexion 5/5 4/5 EHL 5/5 4/5 FHL 5/5 4/5 Toe heel walk / heel-toe walk intact while maintaining satisfactory balance? yes Squatting/straightening w/o assistance to a min of 60 degree knee flexion? yes Single leg stance: intact REFLEXES(0-4/2, NT)Upper Extremity Lower Extremity Right 2 2 Left 2 2 Pathological Reflexes RIGHT LEFT Ruby's Absent Absent Clonus Absent Absent Babinski Absent Absent Sensory system (0-4, N/T) Test type RU CORNELIUS RL LL Joint-Position 2 2 2 2 Vibration 2 2 2 2 Pain & LT sense 2 2 2 2 Dermatomal Deficit: None None None None Gait and Functional Evaluation: Ambulatory aids:Independent Romberg's test:Intact bilaterally Steady Gait RADIOGRAPHIC STUDIES: XRay Lumbar Multiview (AP, Lateral, Flexion, Extension) with AP pelvis; 5 views taken at [facility] [place] on 11/24/22 of Lumbar, Pelvis Spine: Images reviewed with the patient.There is mild to moderate spondylosis at L5-S1 with some height collapse and mild facet arthropathy.Overall alignment maintained in the sagittal and coronal planes. No fractures. No lesions noted. AP pelvis shows congruent pelvis. b/l SIJ show some sclerotic borders and subchondral cyst changes due to OA. No fractures. No lesions. IMPRESSION: It was my pleasure to have seen and examined Iram. I reviewed the patient's clinical syndrome, physical findings, and imaging studies during the appointment today. It is my impression that the patient has a diagnosis of. 1. Left sacroiliitis I outlined the natural course history without intervention and various interventional options. PLAN: Based on my findings I suggest the following course of action: -I discussed treatment options with the patient, including operative and non- operative options, and they have elected to proceed with the following surgical procedure: Left MIS SI joint fusion The indications, risks, benefits, and alternatives to surgery were discussed with the patient and family at length. Specifically, but not limited to, the risks of infection, stiffness, recurrence of symptoms, need for revision surgery, local numbness, neurovascular injury, and blood clots were discussed. The patient's questions were answered. The decision to proceed was made. Consent will be obtained for the procedure. - Ambulate daily. - Take medications as directed. - Ice and rest for pain and swelling control. Spine Surgery Risk Review Ms. Hardy is presenting for evaluation of low back, left buttock, and left lower extremity pain. It was my pleasure to have seen and examined Ms. Hardy. In our visit today we have had a chance to go over subjective complaints, physical examination findings and treatments including the natural course history without intervention and various interventional options. The patients imaging demonstrates: XRay Lumbar Multiview (AP, Lateral, Flexion, Extension) with AP pelvis; 5 views taken at [facility] [place] on 11/24/22 of Lumbar, Pelvis Spine: Images reviewed with the patient.There is mild to moderate spondylosis at L5-S1 with some height collapse and mild facet arthropathy.Overall alignment maintained in the sagittal and coronal planes. No fractures. No lesions noted. AP pelvis shows congruent pelvis. b/l SIJ show some sclerotic borders and subchondral cyst changes due to OA. No fractures. No lesions. On physical exam, Ms. Hardy demonstrates: The patient notes continued left- sided low back pain that radiates down into te left buttock and posterior aspect of the left lower extremity. The patient notes that her pain worsens with prolonged sitting, when going from a seated to standing position, and when going up steps. The patient notes that her current symptoms make it difficult for her to complete many of her activities of daily living. The patient reports experiencing moderate to severe sleep disturbances due to her ongoing pain and associated symptoms. I have explained to the patient that as their condition progresses it will cause further neurological deficits and eventual paralysis. Based on the patients imaging, physical exam, and the rapid progression and disabling nature of their symptoms, at this time I recommend surgery in the form of a: Left MIS SI joint fusion. I discussed the risk and benefits of this procedure at length with Ms. Hardy. The patient agreed to considered pursuing the procedure above mentioned. Prior to surgery, she should follow up with her PCP (Cardio, ID, IM etc) for clearance. Questions were invited and answered, and the patient wishes to proceed as outlined below. Currently, I am recommendin.Left minimally invasive SacroIliac joint fusion 2.Follow up with PCP for surgical clearance 3.Review of surgical risks and benefits as well as an educational packet on the proposed surgical procedure. Risks: All surgical procedures come with inherent risks, including those related to positioning, anesthesia, intraoperative findings, and postoperative complications. It is important to understand that surgery does not come with any guarantee of a successful outcome as complications and adverse events are always possible. The patient was given a handout in office today discussing the surgical procedure and risks associated with the intervention, both of which were discussed with the patient. These risks include but are not limited to the following: * Experiencing same, different or even worse symptoms in back, neck, arms, or legs compared to before surgery. Requiring further surgery or other forms of treatment presently or at some time in the future at same or other levels of the intended spine surgery. On an extreme but fortunately relatively rare basis severe complication such as blindness, stroke, heart attack, temporary and/or permanent nerve injury, paralysis, coma, or may occur, sometimes without known explanation. Surgical complications may include but are not limited to risk of infection, fluid accumulation in the surgical dissection site, including a ser teresita or hematoma, that requires additional surgery, wound drainage, bleeding, new numbness or weakness, vision changes/loss, spinal fluid leakage, non-healing and/or infected incision, headaches, difficulty or inability to swallow, hoarseness, hemopneumothorax, pneumothorax, impotence, retrograde ejaculation, vaginal dryness; injury to nerves, spinal cord, blood vessels, lymphatics or other vital organs (i.e., bowel injury, injury to the great vessels); heterotopic bone formation; complications related to the hardware such as screws, rods, cages including misplaced hardware, device failure, ins trumentation at the wrong spine level, hardware fracture/breakage, or hardware loosening; vertebral failure of the spinal column above or below the newly placed hardware; retained surgical instrumentations or devices and the need for further surgery. * Medical risks of the planned spine surgery include but are not limited to generalized Infections to the whole body or local areas outside of the surgical site (sepsis), heart attack, bleeding, anaphylaxis, meningitis, seizure, epilepsy, hearing loss, burn rivers, laceration of the head or other areas of the body, bruising, hypersensitivity of the skin, bladder over distension; allergic reaction; shoulder injury related to positioning; fat, blood and air clots to other areas of the body like heart, lungs, brain; failure of internal organs such as lungs, kidneys, liver and excessive bleeding. If blood transfusions are necessary, note that transfusions may cause intolerance reactions such as anaphylaxis or other complex reactions. Despite best efforts, the results of spine surgery might not heal in terms of bone, soft tissues such as skin, fascia, ligaments, and joints. Additionally, in order to achieve best possible results, spine surgery may be carried out beyond the initially planned levels and involve decompression, fusion including insertion of hardware at levels other than the original intended area of surgical interest change some portions of the procedure in order to ensure the best possible outcomes. With spine surgery and spinal fusion, there are different off label uses of instrumentation (devices, implants and hardware) as well as biological substances (bone morphogenic proteins, demineralized bone matrix) as well as using extra bone from allograft sources (i.e. cadaver bone) or autograft (iliac crest bone, ribs, or the spine itself). The patient has been given information about these practices and their inherent risks and benefits. [facility] is an educational center that serves as a training facility for neurosurgical and orthopedic PLUM[employer]ING [employer]OR and Nursing students. Physician assistants are medically trained surgical providers who function in the outpatient, inpatient, and operating room setting under the direct supervision of the attending surgeon. [facility] has multiple operating rooms with single and overlapping rooms running daily. They currently function under the required guidelines as produced by the [facility] with regards to the overlapping rooms and will continue to comply with changes to this policy as they occur. The requirements include and are complied with as follows: (1) the critical portions of the overlapping rooms will not occur at the same time, (2) the attending physician will be physically present during the critical portions of the procedure and immediately available during the entire case, and (3) a back-up attending is designated should the primary attending not be immediately available. The patient has had a chance to review all the listed information, has been given print outs detailing this information, and has had all his/her questions answered to their satisfaction. It was my pleasure to have seen and examined Ms. Hardy. In our visit today we have had a chance to go over my understanding of our patient's current condition, the natural course history without intervention and various interventional options. Questions were invited and answered, and the patient wishes to proceed as outlined above. I have seen and examined the patient for 25 minutes and we have spent more than 50% of the time in repeat and detailed counseling about the patient's condition, its natural course history with out and as much as can be predicted with surgery and re-review of various surgical treatment options. In conclusion, Ms. Hardy requested we proceed with the above suggested surgery and are willing to accept risks and limitations of the suggested surgery as nature of the disease process and our best attempts at treatment for the condition. Thank you again for allowing us to be part of your patient's care. Please don't hesitate to contact me if you have any further questions. Follow- up: DEL Post procedure 1month 6wks 3 months 6 months 1 year Patient Education: (Informational booklet, instructions, etc) given at today's appointment: DEL Yes .ED:Patient Education: Y Medications Reviewed: YES In our visit today Ms. Hardy and I have had a chance to go over my understanding of the patient's current condition, the natural course history without intervention and various interventional options. Questions were invited and answered, and the patient wishes to proceed as outlined above. I will be sure to keep you updated afterMs. Antony returns here for further follow-up. Thank you again for your referral. Please do not hesitate to contact me if you have any further questions. Signed and authenticated by: TINY Cruz [facility] [address], [address] [place] [address] This message is confidential, intended only for the named recipient(s) and may contain information that is privileged or exempt from disclosure under applicable law. If you are not the intended recipient(s), you are notified that the dissemination, distribution or copying of this information is strictly prohibited. If you received this message in error, please notify the sender then delete this message. Patient verbalizes understanding of the information discussed. The above note was initiated by Vivek Frank, physician recording child nutrition assistant for Dr. Juan Francisco Simon. This note has been reviewed by Dr. Simon, who has made his personal changes and impressions for this document. CC: Bro Cristina M.D. Past Medical History Past Medical History: Cancer, COPD, Eye Disorder, GERD/Reflux, Hyperlipidemia, Osteoarthritis (OA), Rheumatoid Arthritis (RA) Additional Past Medical History / Comment(s): low blood pressure, migraines, adrenal insufficiency takes cortef, hx. pituitary tumor although no evidence recently of it, acromegaly r/t growth hormone, hx. skin cancer History of Any Multi-Drug Resistant Organisms: None Reported Past Surgical History: Appendectomy, Cholecystectomy, Hysterectomy, Orthopedic Surgery Additional Past Surgical History / Comment(s): Claudio Fundoplication, foreign object removed from foot Past Anesthesia/Blood Transfusion Reactions: Previous Problems w/ Anesthesia, Motion Sickness, Postoperative Nausea & Vomiting (PONV) Additional Past Anesthesia/Blood Transfusion Reaction / Comment(s): no hx blood transfusion, states was told during hy. in 1988 they "had to use the paddles", she's not sure what happened, her nor her family were told anything, she has had surg. since w/no problem she's aware of Smoking Status: Current every day smoker - Past Family History Mother Family Medical History: No Reported History Father Family Medical History: No Reported History Additional Family Medical History / Comment(s): father's dad had colon CA Medications and Allergies Home Medications Medication Instructions Recorded Confirmed Type Hydrocortisone [Cortef] 10 mg PO TID@0700,1100,1500 03/22/22 05/02/23 History Midodrine [ProAmatine] 5 mg PO TID@0700,1100,1500 03/22/22 05/02/23 History Escitalopram [Lexapro] 20 mg PO DAILY 04/09/22 05/02/23 History Omeprazole 20 mg PO BID 08/09/22 05/02/23 History Rimegepant Sulfate [Nurtec Odt] 75 mg PO DAILY PRN 08/09/22 05/02/23 History Ondansetron [Zofran] 4 mg PO DAILY PRN 09/05/22 05/02/23 History busPIRone HCL 15 mg PO BID 09/05/22 05/02/23 History traMADol HCL [Ultram] 50 mg PO BID 12/22/22 05/02/23 History Albuterol Inhaler [Ventolin Hfa 1 - 2 puff INHALATION Q6H PRN 05/02/23 05/02/23 History Inhaler] rOPINIRole HCL [Requip] 0.25 mg PO 1900 05/02/23 05/02/23 History Allergies Allergy/AdvReac Type Severity Reaction Status Date / Time bee venom protein (honey bee) Allergy Anaphylaxis Verified 05/02/23 14:18 COVID-19 vaccine, mRNA, Allergy Anaphylaxis Verified 05/02/23 14:18 [id number], [From Moderna COVID-19 (6-11yr)(EUA)] cephalexin monohydrate AdvReac Swelling Verified 05/02/23 14:18 [From Keflex] codeine AdvReac Itching Verified 05/02/23 14:18 erythromycin base AdvReac Swelling Verified 05/02/23 14:18 [Erythromycin Base] Sulfa (Sulfonamide AdvReac Anaphylaxis Verified 05/02/23 14:18 Antibiotics) Physical Examination Osteopathic Statement: *. No significant issues noted on an osteopathic structural exam other than those noted in the History and Physical/Consult.
[~2023-05-09 08:20] MED LIST changes: +ACETAMINOPHEN TAB 500 MG TAB PO PRN; +DEXAMETHASONE SOD PHOSPHATE 4 MG/ML 1 ML VIAL IV ONE; +GABAPENTIN 300 MG CAP PO PRN; +HYDROmorphone 0.5 MG/0.5 ML SYRINGE IVP PRN; +LACTATED RINGERS 1,000 ML IV SCH; +LIDOCAINE 1% (10MG/ML) FOR IV START INTRADERMA PRN; +MIDAZOLAM 2 MG/2 ML VIAL IV PRN; +ONDANSETRON 4 MG/2 ML VIAL IVP ONE; +ONDANSETRON 4 MG/2 ML VIAL IVP PRN; -Pre Op ABX Message 1 EACH MISC MISCELLANE ONE; +TRANEXAMIC 1,000 MG/100ML-NACL 1,000 MG in SALINE 1 100ML.BAG IVPB PRN
[2023-05-09 09:03] LABS: Glucose,Whole Blood 101 mg/dL (70-110)
[2023-05-09] MEDS ORDERED: LACTATED RINGERS 1,000 ML IV ONE (09:05)
[2023-05-09 09:14] VITALS: RESP 16
[2023-05-09] MEDS ORDERED: fentaNYL (PF) 50 MCG/ML 2 ML AMP ONE (10:04)
[2023-05-09] MEDS ORDERED: TRANEXAMIC 1,000 MG/100ML-NACL PREMIX BAG ONE (10:04)
[2023-05-09] MEDS ORDERED: PHENYLEPHRINE-0.9% NACL SYG 1,000 MCG/10 ML SYRINGE ONE (10:04)
[2023-05-09] MEDS ORDERED: MIDAZOLAM 2 MG/2 ML VIAL ONE (10:04)
[2023-05-09] MEDS ORDERED: methylPREDNISolone SOD SUCCI 125 MG/2 ML VIAL ONE (10:04)
[2023-05-09] MEDS ORDERED: HYDROmorphone (PF) 1 MG/ML ONE (10:04)
[2023-05-09] MEDS ORDERED: SUCCINYLCHOLINE CHLORIDE 200 MG/10 ML VIAL IV ONE (10:04)
[2023-05-09] MEDS ORDERED: PROPOFOL 10 MG/ML 20 ML VIAL IV ONE (10:04)
[2023-05-09] MEDS ORDERED: BUPIVACAINE (PF) 0.5% 30 ML VIAL SQ ONE ×3 (10:31)
[2023-05-09] MEDS ORDERED: LIDOCAINE 2%-EPI 1:100,000 20 ML VIAL SQ ONE ×3 (10:31)
--- NOTE | 2023-05-09 11:49 | XR ---
Intraoperative/procedural fluoroscopic services were provided for left SI joint fusion. Total fluoros copy time is 3.21 minutes with a total of 21 submitted images to PACS. Total DAP [phone] Gycm2. Carlota cabezas see the operative note for further details.
[2023-05-09 12:15] VITALS: TEMP 98
[2023-05-09] MEDS ORDERED: SODIUM CHLORIDE 0.9% 1,000 ML IV ONE ×2 (12:19)
[2023-05-09] MEDS ORDERED: oxyCODONE-APAP 7.5-325MG 1 EACH TAB ONE (13:24)
[2023-05-09 14:17] VITALS: BP 118/74; PULSE 75
--- NOTE | 2023-05-09 14:34 | P.OP ---
Date of Procedure: 05/09/23 Preoperative Diagnosis: 1. LEFT SIJ OA SEVERE 2. LOW BACK AND SIJ PAIN 3. 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 LEFT SIJ OA SEVERE 2. LOW BACK AND SIJ PAIN 3. 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 LEFT MIS SIJ FUSION ([id number]) Implants: SI BONE TORQUE SCREWS X3 50, 55, 50 MM 11.5 MM Anesthesia: GETA Surgeon: Juan Francisco Simon Assistant Dean #1: Angelica Del Rio (WAS PRESNT AND ASSISTED WITH ALL ASPECTS OF THE CASE FROM POSITION TO CLOSURE) Estimated Blood Loss (ml): 20 IV fluids (ml): 1,000 Urine output (ml): 0 Pathology: none sent Condition: stable Disposition: PACU Indications for Procedure: Ms. Hardy is presenting for evaluation of low back, left buttock, and left lower extremity pain. It was my pleasure to have seen and examined Ms. Hardy. In our visit today we have had a chance to go over subjective complaints, physical examination findings and treatments including the natural course history without intervention and various interventional options. The patients imaging demonstrates: XRay Lumbar Multiview (AP, Lateral, Flexion, Extension) with AP pelvis; 5 views taken at [facility] on 11/24/22 of Lumbar, Pelvis Spine: Images reviewed with the patient.There is mild to moderate spondylosis at L5-S1 with some height collapse and mild facet arthropathy.Overall alignment maintained in the sagittal and coronal planes. No fractures. No lesions noted. AP pelvis shows congruent pelvis. b/l SIJ show some sclerotic borders and subchondral cyst changes due to OA. No fractures. No lesions. On physical exam, Ms. Hardy demonstrates: The patient notes continued left- sided low back pain that radiates down into te left buttock and posterior aspect of the left lower extremity. The patient notes that her pain worsens with prolonged sitting, when going from a seated to standing position, and when going up steps. The patient notes that her current symptoms make it difficult for her to complete many of her activities of daily living. The patient reports experiencing moderate to severe sleep disturbances due to her ongoing pain and associated symptoms. I have explained to the patient that as their condition progresses it will cause further neurological deficits and eventual paralysis. Based on the patients imaging, physical exam, and the rapid progression and disabling nature of their symptoms, at this time I recommend surgery in the form of a: Left MIS SI joint fusion. I discussed the risk and benefits of this procedure at length with Ms. Hardy. The patient agreed to considered pursuing the procedure above mentioned. Prior to surgery, she should follow up with her PCP (Cardio, ID, IM etc) for clearance. Questions were invited and answered, and the patient wishes to proceed as outlined below. Currently, I am recommendin.Left minimally invasive SacroIliac joint fusion Description of Procedure: Left SI fusion MIS The patient was seen and examined in the preoperative area. All preoperative protocols were followed. Informed consent was obtained risks and benefits of the procedure were discussed at length. Risks including bleeding infection damage to the surrounding tissue and risk of reoperation were discussed with the patient. Risk of anesthesia up to and including was a discussed with the patient. These are outlined in the risk review. They were willing to accept these risks and all of the risks of surgery. The patient was given a weight-based dose of antibiotics in the form of 2 g Ancef. The patient was seen and evaluated by the anesthesia team who deemed them fit for surgery. The site was marked, the patient was willing to proceed with the procedure. The patient was transferred to the operative suite by the Department of anesthesia. They were then drifted off to sleep by the department anesthesia and GETA was performed. The patient tolerated this well. Once confirmation of lines and ventilation the patient was transferred to a [prone Chris table very carefully]. All bony prominences including wrists, elbows, axilla, chest, hips, and thighs, and feet were padded very well. Special attention was paid to the genitalia and these were padded accordingly. SCDs were placed on bilateral lower extremities and were connected. Arms were well padded and placed [on arm boards up and out in the 90/90 position]. Once in position, again we confirmed good ventilation capabilities and that lines were running appropriately. The patient's lumbopelvic spine was then exposed. 1010s were placed outlining the incision site. Standard alcohol was used to clean the incision site and allowed to dry. C-arm was used to biomark the patient and confirm level for incision which was marked with a skin marker. Operative briefing was performed with all teams and everyone in agreement to proceed. The patient was then prepped and draped in a normal sterile fashion. Timeout was then performed and all parties were in agreement with the procedure to be performed. Skin incision was then made over the previously marked area over the left upper buttock region of the patient following the alar lines and mid sacral line. Blunt dissection was then taken down to the ilium. The first pin was then selected and placed optimally within the SI region superiorly. This was then measured and drilled and a screw placed. Then using the parallel guide a second screw was placed in the anterior inferior position in a similar fashion this was then repeated for the inferior posterior screw. All screws had excellent purchas e and were confirmed to be in good position on AP lateral inlet and outlet views. Neuro monitoring was then used to test the superior screw for L5 and S1 and these tested above 15 mA. No neuro monitoring changes during surgery no EMG. Final fluoroscopic images then confirmed good placement of hardware. We then thoroughly irrigated the wound. Deep fascia was closed with 0 Vicryl superficial closed with 2-0 Vicryl and skin closed with strata fix Monocryl. The wound was then cleaned and dressed with skin glue which was allowed to dry and then a Band-Aid. The patient was transferred back to their hospital bed atraumatically. Patient was then awakened and extubated by the department of anesthesia having tolerated the procedure very well with no complications. They were transferred to the postoperative care unit in stable condition.
== END 2023-05-09 14:15 | disposition home or self-care (01) ==
LOC: OR 08:20
PROVIDERS: ATTEND Orthopaedic Surgery
DX: M46.1 Sacroiliitis, not elsewhere classified (principal); J44.9 Chronic obstructive pulmonary disease, unspecified; K21.9 Gastro-esophageal reflux disease without esophagitis; E78.5 Hyperlipidemia, unspecified; F17.200 Nicotine dependence, unspecified, uncomplicated; E27.40 Unspecified adrenocortical insufficiency; Z90.49 Acquired absence of other specified parts of digestive tract; Z90.710 Acquired absence of both cervix and uterus; Z80.0 Family history of malignant neoplasm of digestive organs; Z98.51 Tubal ligation status; Z91.030 Bee allergy status; Z88.7 Allergy status to serum and vaccine; Z88.1 Allergy status to other antibiotic agents; Z88.5 Allergy status to narcotic agent; Z88.2 Allergy status to sulfonamides; Z79.899 Other long term (current) drug therapy
CPT/HCPCS: 72202; 27279; C1713; J2250; J0330; J1100; J2930; J2405; J3010; J1170 ×2; J2704; J2371; J0665

== ENCOUNTER 2023-06-22 10:15 | Emergency (ER) | payer OTHER ==
[2023-06-22 10:43] VITALS: RESP 18; TEMP 98.7
--- NOTE | 2023-06-22 11:09 | ED ---
Dizziness HPI - General Chief Complaint: Syncope Stated Complaint: Weakness Time Seen by Provider: 06/22/23 10:27 Source: patient, EMS Mode of arrival: EMS Limitations: no limitations - History of Present Illness Initial Comments: Dictation was produced using [employer] dictation software. please excuse any grammatical, word or spelling errors. Chief Complaint: 58-year-old female history of adrenal insufficiency presents to the emergency department for weakness and syncope History of Present Illness: Is 58-year-old female she has history of adrenal insufficiency. She states that since been compliant with her medications. She will this morning felt weak. She felt like she is about to pass out. States she did pass out a couple times. Denies any pain complaints. States that she feels overall weak worsen or bilateral upper extremities. Otherwise has no other complaints. The ROS documented in this emergency department record has been reviewed and confirmed by me. Those systems with pertinent positive or negative responses have been documented in the HPI. All other systems are other negative and/or noncontributory. - Related Data Home Medications Medication Instructions Recorded Confirmed Hydrocortisone [Cortef] 10 mg PO TID@0700,1100,1500 03/22/22 05/09/23 Midodrine [ProAmatine] 5 mg PO TID@0700,1100,1500 03/22/22 05/09/23 Escitalopram [Lexapro] 20 mg PO DAILY 04/09/22 05/09/23 Omeprazole 20 mg PO BID 08/09/22 05/09/23 Rimegepant Sulfate [Nurtec Odt] 75 mg PO DAILY PRN 08/09/22 05/09/23 Ondansetron [Zofran] 4 mg PO DAILY PRN 09/05/22 05/09/23 busPIRone HCL 15 mg PO BID 09/05/22 05/09/23 traMADol HCL [Ultram] 50 mg PO BID 12/22/22 05/09/23 Albuterol Inhaler [Ventolin Hfa 1 - 2 puff INHALATION Q6H PRN 05/02/23 05/09/23 Inhaler] rOPINIRole HCL [Requip] 0.25 mg PO 1900 05/02/23 05/09/23 clonazePAM [KlonoPIN] 0.5 mg PO DAILY 05/09/23 05/09/23 Previous Rx's Medication Instructions Recorded Cyclobenzaprine [Flexeril] 5 mg PO TID #40 tablet 05/09/23 Sennosides/Docusate Sodium [Senna 1 each PO DAILY PRN #20 tab 05/09/23 Plus 8.6-50 mg Tablet] metroNIDAZOLE [Flagyl] 500 mg PO TID #15 tab 05/09/23 oxyCODONE-APAP 7.5-325MG [Percocet 1 tab PO Q6HR PRN #42 tab 05/09/23 7.5-325 mg] Allergies Allergy/AdvReac Type Severity Reaction Status Date / Time bee venom protein (honey bee) Allergy Anaphylaxis Verified 05/09/23 08:38 COVID-19 vaccine, mRNA, Allergy Anaphylaxis Verified 05/09/23 08:38 [id number], [From Moderna COVID-19 (6-11yr)(EUA)] cephalexin monohydrate AdvReac Swelling Verified 05/09/23 08:38 [From Keflex] codeine AdvReac Itching Verified 05/09/23 08:38 erythromycin base AdvReac Swelling Verified 05/09/23 08:38 [Erythromycin Base] Sulfa (Sulfonamide AdvReac Anaphylaxis Verified 05/09/23 08:38 Antibiotics) Review of Systems ROS Statement: Those systems with pertinent positive or pertinent negative responses have been documented in the HPI. ROS Other: All systems not noted in ROS Statement are negative. Past Medical History Past Medical History: Cancer, COPD, Eye Disorder, GERD/Reflux, Hyperlipidemia, Osteoarthritis (OA), Rheumatoid Arthritis (RA) Additional Past Medical History / Comment(s): low blood pressure, migraines, adrenal insufficiency takes cortef, hx. pituitary tumor although no evidence recently of it, acromegaly r/t growth hormone, hx. skin cancer History of Any Multi-Drug Resistant Organisms: None Reported Past Surgical History: Appendectomy, Cholecystectomy, Hysterectomy, Orthopedic Surgery Additional Past Surgical History / Comment(s): Claudio Fundoplication, foreign object removed from foot, left hip surgery 04/2023 Past Anesthesia/Blood Transfusion Reactions: Previous Problems w/ Anesthesia, Motion Sickness, Postoperative Nausea & Vomiting (PONV) Additional Past Anesthesia/Blood Transfusion Reaction / Comment(s): no hx blood transfusion, states was told during hyst. in 1988 they "had to use the paddles", she's not sure what happened, her nor her family were told anything, she has had surg. since w/no problem she's aware of Past Psychological History: Anxiety, Depression Smoking Status: Current every day smoker - Past Family History Mother Family Medical History: No Reported History Father Family Medical History: No Reported History Additional Family Medical History / Comment(s): father's dad had colon CA General Exam - General Exam Comments Initial Comments: PHYSICAL EXAM: General Impression: Alert and oriented x3, not in acute distress HEENT: Normocephalic atraumatic, extra-ocular movements intact, pupils equal and reactive to light bilaterally, mucous membranes moist. Cardiovascular: Heart regular rate and rhythm Chest: Able to complete full sentences, no retractions, no tachypnea Abdomen: abdomen soft, non-tender, non-distended, no organomegaly Musculoskeletal: Pulses present and equal in all extremities, no peripheral thad a Motor: no focal deficits noted Neurological: CN II-XII grossly intact, no focal motor or sensory deficits noted Skin: Intact with no visualized rashes Psych: Normal affect and mood Limitations: no limitations Course Vital Signs 06/22/23 06/22/23 10:16 10:21 Temperature 98.7 F Pulse Rate 77 66 Respiratory 18 18 Rate Blood Pressure 133/86 114/82 O2 Sat by Pulse 96 98 Oximetry EKG Findings - EKG Comments: EKG Findings:: My EKG interpretation: Ventricular rate 76, sinus rhythm, MN interval 142, QRS 84, QTC 421. No MN prolongation, no QTC prolongation, no ST or T-wave changes noted. Overall, this EKG is unremarkable Medical Decision Making - Medical Decision Making Was pt. sent in by a medical professional or institution (, PA, [facility], urgent care, hospital, or shelter...) When possible be specific @ -No Did you speak to anyone other than the patient for history (EMS, parent, family, police, friend...)? What history was obtained from this source @ -No Did you review nursing and triage notes (agree or disagree)? Why? @ -I reviewed and agree with nursing and triage notes Were old charts reviewed (outside hosp., previous admission, EMS record, old EKG, old radiological studies, urgent care reports/EKG's, shelter records)? Report findings @ -No old charts were reviewed Differential Diagnosis (chest pain, altered mental status, abdominal pain women, abdominal pain men, vaginal bleeding, musculoskeletal, weakness, fever, dyspnea, syncope, headache, dizziness, GI bleed, back pain, seizure, CVA, palpatations, mental health)? @ -Differential Weakness: Hypoglycemia, shock, sepsis, hyponatremia, anemia, infection, NC, ETOH, adverse medicine reaction, overdose, stroke, this is not meant to be an all-inclusive list. EKG interpreted by me (3pts min.). @ -None done X-rays interpreted by me (1pt min.). @ -None done CT interpreted by me (1pt min.). @ -None done U/S interpreted by me (1pt. min.). @ -None done What testing was considered but not performed or refused? (CT, X-rays, U/S, labs)? Why? @ -None What meds were considered but not given or refused? Why? @ -None Did you discuss the management of the patient with other professionals (professionals i.e. , PA, [facility], lab, RT, psych nurse, social worker delinquency prevention, die mounter, teacher, booking police officer, nurse case management)? Give summary @ -No Was smoking cessation discussed for >3mins.? @ -No Was critical care preformed (if so, how long)? @ -No Were there social determinants of health that impacted care today? How? (Homelessness, low income, unemployed, alcoholism, drug addiction, transportation, low edu. Level, literacy, decrease access to med. care, penitentiary, rehab)? @ -No Was there de-escalation of care discussed even if they declined (Discuss DNR or withdrawal of care, Hospice)? DNR status @ -No What co-morbidities impacted this encounter? (DM, HTN, Smoking, COPD, CAD, Cancer, CVA, ARF, Chemo, Hep., AIDS, mental health diagnosis, sleep apnea, morbid obesity)? @ -None Was patient admitted / discharged? Hospital course, mention meds given and route, prescriptions, significant lab abnormalities, going to OR and other pertinent info. @ -58-year-old female presents immersed apart for generalized weakness. She does have history of adrenal insufficiency. She is compliant with all her medications. Does not have any history of cardiac disease. Vital signs are stable. Laboratory evaluation is unremarkable. Troponin is negative. All testing negative. Patient observed in emergency department for 2 hours and 30 minutes. Reevaluated bedside 12 4600 beats stable medical condition. Disposition after discussion is agreeable to discharge. Patient given return precautions otherwise she is advised to follow-up with a primary care doctor. Undiagnosed new problem with uncertain prognosis? @ -No Drug Therapy requiring intensive monitoring for toxicity (Heparin, Nitro, Insulin, Cardizem)? @ -No Were any procedures done? @ -No Diagnosis/symptom? Acute, or Chronic, or Acute on Chronic? Uncomplicated (without systemic symptoms) or Complicated (systemic symptoms)? @ -Generalized weakness Side effects of treatment? @ -No Exacerbation, Progression, or Severe Exacerbation? @ -No Poses a threat to life or bodily function? How? (Chest pain, USA, NC, pneumonia, PE, COPD, DKA, ARF, appy, cholecystitis, CVA, Diverticulitis, Homicidal, Suicidal, threat to staff... and all critical care pts) @ -No - Lab Data Result diagrams: 06/22/23 11:19 06/22/23 11:19 Lab Results 06/22/23 06/22/23 06/22/23 Range/Units 11:19 11:19 11:19 WBC 10.0 (3.8-10.6) k/uL RBC 4.97 (3.80-5.40) m/uL Hgb 14.3 (11.4-16.0) gm/dL Hct 44.2 (34.0-46.0) % MCV 88.8 (80.0-100.0) fL MCH 28.8 (25.0-35.0) pg MCHC 32.5 (31.0-37.0) g/dL RDW 15.6 H (11.5-15.5) % Plt Count 300 (150-450) k/uL MPV 7.7 Neutrophils % 66 % Lymphocytes % 21 % Monocytes % 5 % Eosinophils % 5 % Basophils % 0 % Neutrophils # 6.6 (1.3-7.7) k/uL Lymphocytes # 2.1 (1.0-4.8) k/uL Monocytes # 0.5 (0-1.0) k/uL Eosinophils # 0.5 (0-0.7) k/uL Basophils # 0.0 (0-0.2) k/uL Sodium 139 (137-145) mmol/L Potassium 4.6 (3.5-5.1) mmol/L Chloride 108 H (98-107) mmol/L Carbon Dioxide 19 L (22-30) mmol/L Anion Gap 12 mmol/L BUN 17 (7-17) mg/dL Creatinine 0.72 (0.52-1.04) mg/dL Est GFR (CKD-EPI)AfAm >90 (>60 ml/min/1.73 sqM) Est GFR (CKD-EPI)NonAf >90 (>60 ml/min/1.73 sqM) Glucose 95 (74-99) mg/dL Calcium 9.5 (8.4-10.2) mg/dL Magnesium 2.2 (1.6-2.3) mg/dL Total Bilirubin 0.6 (0.2-1.3) mg/dL AST 24 (14-36) U/L ALT 18 (4-34) U/L Alkaline Phosphatase 85 (38-126) U/L Troponin I (0.000-0.034) ng/mL Total Protein 6.7 (6.3-8.2) g/dL Albumin 3.8 (3.5-5.0) g/dL Influenza Type A (PCR) Not Detected (Not Detectd) Influenza Type B (PCR) Not Detected (Not Detectd) RSV (PCR) Not Detected (Not Detectd) SARS-CoV-2 (PCR) Not Detected (Not Detectd) 06/22/23 Range/Units 11:19 WBC (3.8-10.6) k/uL RBC (3.80-5.40) m/uL Hgb (11.4-16.0) gm/dL Hct (34.0-46.0) % MCV (80.0-100.0) fL MCH (25.0-35.0) pg MCHC (31.0-37.0) g/dL RDW (11.5-15.5) % Plt Count (150-450) k/uL MPV Neutrophils % % Lymphocytes % % Monocytes % % Eosinophils % % Basophils % % Neutrophils # (1.3-7.7) k/uL Lymphocytes # (1.0-4.8) k/uL Monocytes # (0-1.0) k/uL Eosinophils # (0-0.7) k/uL Basophils # (0-0.2) k/uL Sodium (137-145) mmol/L Potassium (3.5-5.1) mmol/L Chloride (98-107) mmol/L Carbon Dioxide (22-30) mmol/L Anion Gap mmol/L BUN (7-17) mg/dL Creatinine (0.52-1.04) mg/dL Est GFR (CKD-EPI)AfAm (>60 ml/min/1.73 sqM) Est GFR (CKD-EPI)NonAf (>60 ml/min/1.73 sqM) Glucose (74-99) mg/dL Calcium (8.4-10.2) mg/dL Magnesium (1.6-2.3) mg/dL Total Bilirubin (0.2-1.3) mg/dL AST (14-36) U/L ALT (4-34) U/L Alkaline Phosphatase (38-126) U/L Troponin I <0.012 (0.000-0.034) ng/mL Total Protein (6.3-8.2) g/dL Albumin (3.5-5.0) g/dL Influenza Type A (PCR) (Not Detectd) Influenza Type B (PCR) (Not Detectd) RSV (PCR) (Not Detectd) SARS-CoV-2 (PCR) (Not Detectd) Disposition Clinical Impression: Weakness Disposition: HOME SELF-CARE Condition: Fair Instructions (If sedation given, give patient instructions): Weakness (ED) Is patient prescribed a controlled substance at d/c from ED?: No Referrals: Bro Cristina MD [Primary Care Provider] - 1-2 days Time of Disposition: 12:47
[2023-06-22 11:33] LABS: Basophils % (A) 0 %; Eosinophils # (A) 0.5 k/uL (0-0.7); Eosinophils % (A) 5 %; HCT 44.2 % (34.0-46.0); HGB 14.3 gm/dL (11.4-16.0); Lymphocytes # (A) 2.1 k/uL (1.0-4.8); Lymphocytes % (A) 21 %; MCH 28.8 pg (25.0-35.0); MCHC 32.5 g/dL (31.0-37.0); MCV 88.8 fL (80.0-100.0); Mean Platelet Volume 7.7; Monocytes # (A) 0.5 k/uL (0-1.0); Monocytes % (A) 5 %; Neutrophils # (A) 6.6 k/uL (1.3-7.7); Neutrophils % (A) 66 %; Platelet Count 300 k/uL (150-450); RBC 4.97 m/uL (3.80-5.40); RDW 15.6 % (11.5-15.5)
[2023-06-22 11:44] LABS: ALT 18 U/L (4-34); AST 24 U/L (14-36); African American GFR (CKD) >90 (>60 ml/min/1.73 sqM); Albumin 3.8 g/dL (3.5-5.0); Alkaline Phosphatase 85 U/L (38-126); Anion Gap 12 mmol/L; Blood Urea Nitrogen 17 mg/dL (7-17); Calcium 9.5 mg/dL (8.4-10.2); Carbon Dioxide 19 mmol/L (22-30); Chloride 108 mmol/L (98-107); Glucose 95 mg/dL (74-99); Magnesium 2.2 mg/dL (1.6-2.3); Non-African American GFR(CKD) >90 (>60 ml/min/1.73 sqM); Potassium 4.6 mmol/L (3.5-5.1); Sodium 139 mmol/L (137-145); Total Bilirubin 0.6 mg/dL (0.2-1.3); Total Protein 6.7 g/dL (6.3-8.2)
[2023-06-22 13:08] VITALS: BP 116/78; PULSE 90
== END 2023-06-22 13:02 | disposition home or self-care (01) ==
LOC: EC 10:15
DX: R53.1 Weakness (principal); J44.9 Chronic obstructive pulmonary disease, unspecified; K21.9 Gastro-esophageal reflux disease without esophagitis; M06.9 Rheumatoid arthritis, unspecified; M19.90 Unspecified osteoarthritis, unspecified site; F41.9 Anxiety disorder, unspecified; F32.A Depression, unspecified; F17.200 Nicotine dependence, unspecified, uncomplicated; Z88.2 Allergy status to sulfonamides; Z88.5 Allergy status to narcotic agent; Z88.7 Allergy status to serum and vaccine; Z88.1 Allergy status to other antibiotic agents; Z91.030 Bee allergy status; Z79.899 Other long term (current) drug therapy; Z20.822 Contact with and (suspected) exposure to COVID-19
CPT/HCPCS: 36415; 80053; 83735; 84484; 85025; 87636; 93005; 99284

== ENCOUNTER → 2023-06-27 | Outpatient (CLI) | payer OTHER ==
--- NOTE | 2023-06-28 10:02 | CT ---
EXAMINATION TYPE: CT pelvis wo con CT DLP: 505.1 mGycm, Automated exposure control for dose reduction was used. DATE OF EXAM: 06/27/2023 6:31 PM COMPARISON: CT 02/26/2019. CLINICAL INDICATION:Female, 58 years old with history of M54.50 LOW BACK PAIN R10.9 ABD PAIN; Post op erative SI Pain x 20 days TECHNIQUE: Axial CT of the ;CT pelvis wo con;Sagittal and coronal reformats were created on a [employer] workstation. Contrast used: mL of , (none if empty) Oral contrast used: without Oral Contrast (none if empty) FINDINGS: LOWER CHEST: Unremarkable ABDOMEN BLADDER: Unremarkable REPRODUCTIVE: The uterus is surgically absent. ABDOMEN & PELVIS STOMACH AND BOWEL: No evidence of bowel obstruction. PERITONEUM/RETROPERITONEUM: No evidence of pneumoperitoneum or free fluid. VASCULATURE: No evidence of aortic aneurysm. MUSCULOSKELETAL: No acute osseous abnormalities left sacroiliac joint screws are in place. The 3 scre ws appear intact. No evidence for loosening. Incomplete fusion of the left sacroiliac joint as expect ed for 20 [id number] postop patient. LYMPH NODES: No gross evidence for lymphadenopathy. SOFT TISSUE/ABDOMINAL WALL: Unremarkable IMPRESSION: Postsurgical changes with hardware intact and in appropriate position within the left sacroiliac join t.
== END | disposition home or self-care (01) ==
LOC: RADCTMAIN 18:06
PROVIDERS: ATTEND Orthopaedic Surgery
DX: M54.50 Low back pain, unspecified (principal); R10.9 Unspecified abdominal pain; G89.18 Other acute postprocedural pain; Z98.890 Other specified postprocedural states
CPT/HCPCS: 72192

== ENCOUNTER → 2023-09-05 | Outpatient (CLI) | payer OTHER ==
--- NOTE | 2023-09-05 16:56 | US ---
EXAMINATION TYPE: US venous doppler duplex LE RT DATE OF EXAM: 09/05/2023 4:45 PM COMPARISON: NONE CLINICAL INDICATION: Female, 58 years old with history of M79.604 PAIN IN RIGHT LEG; Right leg pain SIDE PERFORMED: Right TECHNIQUE: The lower extremity deep venous system is examined utilizing real time linear array sonog malinda with graded compression, doppler sonography and color-flow sonography. VESSELS IMAGED: Common Femoral Vein Deep Femoral Vein Greater Saphenous Vein * Femoral Vein Popliteal Vein Small Saphenous Vein * Proximal Calf Veins (* superficial vessels) Right Leg: Appears negative for DVT IMPRESSION: Grayscale, color doppler, spectral doppler imaging performed of the deep veins of the lo wer extremities. There is normal flow, compressibility, vascular waveforms.
== END | disposition home or self-care (01) ==
LOC: RADUSWWP 16:24
PROVIDERS: ATTEND Family Medicine
DX: M79.604 Pain in right leg (principal)

== ENCOUNTER 2024-03-08 18:36 | Emergency (ER) | payer OTHER ==
[2024-03-08] MEDS ORDERED: GELATIN SPONGE,ABSORB (SMALL) 1 EACH SPONGE ONE (19:55)
[2024-03-08] MEDS ORDERED: LIDOCAINE/EPINEPHR/TETRACAINE 5 ML BOTTLE TOPICAL ONE (19:56)
== END 2024-03-08 21:55 | disposition home or self-care (01) ==
LOC: EC 18:36
CPT/HCPCS: 99282

== ENCOUNTER 2024-06-06 12:28 | Emergency (ER) | payer MEDICARE, OTHER ==
[2024-06-06 12:37] VITALS: RESP 18; TEMP 98.2
[2024-06-06] MEDS: HYDROmorphone 0.5 MG/0.5 ML SYRINGE IM STA ×2 (13:05→16:51)
--- NOTE | 2024-06-06 13:05 | ED ---
General Adult HPI - General Chief complaint: Extremity Injury, Lower Stated complaint: Fall-R knee injury Time Seen by Provider: 06/06/24 12:33 Source: patient, RN notes reviewed, old records reviewed Mode of arrival: wheelchair Limitations: no limitations, physical limitation - History of Present Illness Initial comments: This is a 59-year-old female who presents to the emergency department complaining of right knee pain. Patient states she was walking her dog and tripped on the leash and then twisted her knee. Patient states it hurts everywhere underneath and it radiates down to her foot. Patient denies any leg pain patient has any foot pain. Patient has any toe pain. Patient has any other injury at this time. - Related Data Home Medications Medication Instructions Recorded Confirmed Hydrocortisone [Cortef] 10 mg PO TID@0700,1100,1500 03/22/22 05/09/23 Midodrine [ProAmatine] 5 mg PO TID@0700,1100,1500 03/22/22 05/09/23 Escitalopram [Lexapro] 20 mg PO DAILY 04/09/22 05/09/23 Omeprazole 20 mg PO BID 08/09/22 05/09/23 Rimegepant Sulfate [Nurtec Odt] 75 mg PO DAILY PRN 08/09/22 05/09/23 Ondansetron [Zofran] 4 mg PO DAILY PRN 09/05/22 05/09/23 busPIRone HCL 15 mg PO BID 09/05/22 05/09/23 traMADol HCL [Ultram] 50 mg PO BID 12/22/22 05/09/23 Albuterol Inhaler [Ventolin Hfa 1 - 2 puff INHALATION Q6H PRN 05/02/23 05/09/23 Inhaler] rOPINIRole HCL [Requip] 0.25 mg PO 1900 05/02/23 05/09/23 clonazePAM [KlonoPIN] 0.5 mg PO DAILY 05/09/23 05/09/23 Previous Rx's Medication Instructions Recorded Cyclobenzaprine [Flexeril] 5 mg PO TID #40 tablet 05/09/23 Sennosides/Docusate Sodium [Senna 1 each PO DAILY PRN #20 tab 05/09/23 Plus 8.6-50 mg Tablet] metroNIDAZOLE [Flagyl] 500 mg PO TID #15 tab 05/09/23 oxyCODONE-APAP 7.5-325MG [Percocet 1 tab PO Q6HR PRN #42 tab 05/09/23 7.5-325 mg] Ketorolac [Toradol] 10 mg PO Q8HR #15 tab 06/06/24 Allergies Allergy/AdvReac Type Severity Reaction Status Date / Time bee venom protein (honey bee) Allergy Anaphylaxis Verified 06/06/24 12:37 COVID-19 vaccine, mRNA, Allergy Anaphylaxis Verified 06/06/24 12:37 [id number], [From Moderna COVID-19 (6-11yr)(EUA)] cephalexin monohydrate AdvReac Swelling Verified 06/06/24 12:37 [From Keflex] codeine AdvReac Itching Verified 06/06/24 12:37 erythromycin base AdvReac Swelling Verified 06/06/24 12:37 [Erythromycin Base] Sulfa (Sulfonamide AdvReac Anaphylaxis Verified 06/06/24 12:37 Antibiotics) Review of Systems ROS Statement: Those systems with pertinent positive or pertinent negative responses have been documented in the HPI. ROS Other: All systems not noted in ROS Statement are negative. Past Medical History Past Medical History: Cancer, COPD, Eye Disorder, GERD/Reflux, Hyperlipidemia, Osteoarthritis (OA), Rheumatoid Arthritis (RA) Additional Past Medical History / Comment(s): low blood pressure, migraines, adrenal insufficiency takes cortef, hx. pituitary tumor although no evidence recently of it, acromegaly r/t growth hormone, hx. skin cancer History of Any Multi-Drug Resistant Organisms: None Reported Past Surgical History: Appendectomy, Cholecystectomy, Hysterectomy, Orthopedic Surgery Additional Past Surgical History / Comment(s): Claudio Fundoplication, foreign object removed from foot, left hip surgery 04/2023 Past Anesthesia/Blood Transfusion Reactions: Previous Problems w/ Anesthesia, Motion Sickness, Postoperative Nausea & Vomiting (PONV) Additional Past Anesthesia/Blood Transfusion Reaction / Comment(s): no hx blood transfusion, states was told during hyst. in 1988 they "had to use the paddles", she's not sure what happened, her nor her family were told anything, she has had surg. since w/no problem she's aware of Past Psychological History: Anxiety, Depression Smoking Status: Current every day smoker Past Alcohol Use History: None Reported Past Drug Use History: None Reported - Past Family History Mother Family Medical History: No Reported History Father Family Medical History: No Reported History Additional Family Medical History / Comment(s): father's dad had colon CA General Exam - General Exam Comments Initial Comments: GENERAL Patient is well-developed and well-nourished. Patient is in mild distress. EYES Patient's pupils are equal and round. Extraocular motion is intact SKIN Unremarkable NEURO The patient is alert and oriented A&Ox3 PYSCH Patient has normal interpersonal interactions. MUSCULOSKELETAL Patient has tenderness to the inferior aspect of the knee unable to assess laxity of the knee joint because it hurts her too much to move. Patient has no leg ankle foot pain. Limitations: no limitations, physical limitation Course Vital Signs 06/06/24 06/06/24 12:31 15:34 Temperature 98.2 F Pulse Rate 104 H 73 Respiratory 18 18 Rate Blood Pressure 125/80 131/82 O2 Sat by Pulse 98 96 Oximetry Medical Decision Making - Medical Decision Making Was pt. sent in by a medical professional or institution (Dr. PA, FACILITIES PROJECT MANAGER, urgent care, hospital, or shelter...) When possible be specific @ -No Did you speak to anyone other than the patient for history (EMS, parent, family, police, friend...)? What history was obtained from this source @ -No Did you review nursing and triage notes (agree or disagree)? Why? @ -I reviewed and agree with nursing and triage notes Were old charts reviewed (outside hosp., previous admission, EMS record, old EKG, old radiological studies, urgent care reports/EKG's, shelter records)? Report findings @ -No old charts were reviewed Differential Diagnosis? @ -Femur fracture, proximal fibula fracture, derangement of the knee, this is not an all-inclusive list EKG interpreted by me (3pts min.). @ -As above X-rays interpreted by me (1pt min.). @ -. The knee x-ray shows a questionable fracture at the medial condyle of the right femur CT interpreted by me (1pt min.). @ -CT shows medial condyle fracture of the femur U/S interpreted by me (1pt. min.). @ -None done What testing was considered but not performed or refused? (CT, X-rays, U/S, labs)? Why? @ -None What meds were considered but not given or refused? Why? @ -None Did you discuss the management of the patient with other professionals (professionals i.e. , PA, FACILITIES PROJECT MANAGER, lab, RT, psych nurse, community mental health social worker, para professional, teacher, compliance review officer, wrapper caser)? Give summary @ -I spoke with [facility] and she stated putting the patient in knee immobilizer would be sufficient and they would follow patient up in the office. Was smoking cessation discussed for >3mins.? @ -No Was critical care preformed (if so, how long)? @ -No Were there social determinants of health that impacted care today? How? (Homelessness, low income, unemployed, alcoholism, drug addiction, transportation, low edu. Level, literacy, decrease access to med. care, shelter, rehab)? @ -No Was there de-escalation of care discussed even if they declined (Discuss DNR or withdrawal of care, Hospice)? DNR status @ -No What co-morbidities impacted this encounter? (DM, HTN, Smoking, COPD, CAD, Cancer, CVA, ARF, Chemo, Hep., AIDS, mental health diagnosis, sleep apnea, morbid obesity)? @ -None Was patient admitted / discharged? Hospital course, mention meds given and route, prescriptions, significant lab abnormalities, going to OR and other pertinent info. @ -Patient had a knee immobilizer placed she also was given Toradol and Dilaudid. Patient is given crutches and told not to weight-bear Undiagnosed new problem with uncertain prognosis? @ -No Drug Therapy requiring intensive monitoring for toxicity (Heparin, Nitro, Insulin, Cardizem)? @ -No Were any procedures done? @ -No Diagnosis/symptom? @ -Fracture medial condyle femur Acute, or Chronic, or Acute on Chronic? @ -Acute Uncomplicated (without systemic symptoms) or Complicated (systemic symptoms)? @ -complicated Side effects of treatment? @ -No Exacerbation, Progression, or Severe Exacerbation? @ -No Poses a threat to life or bodily function? How? (Chest pain, USA, [place], pneumonia, PE, COPD, DKA, ARF, appy, cholecystitis, CVA, Diverticulitis, Homicidal, Suicidal, threat to staff... and all critical care pts) @ -No Disposition Clinical Impression: Femur fracture, right Disposition: HOME SELF-CARE Instructions (If sedation given, give patient instructions): Leg Fracture (ED) Prescriptions: Ketorolac [Toradol] 10 mg PO Q8HR #15 tab Is patient prescribed a controlled substance at d/c from ED?: No Referrals: Ean Lee MD [STAFF PHYSICIAN] - 1-2 days Time of Disposition: 16:38
[2024-06-06] MEDS: KETOROLAC 15 MG/ML 1 ML VIAL IM STA (13:06)
--- NOTE | 2024-06-06 14:29 | XR ---
EXAMINATION TYPE: XR knee complete RT DATE OF EXAM: 06/06/2024 1:34 PM COMPARISON: None. CLINICAL INDICATION: Female, 59 years old with history of Trauma,, right knee pain TECHNIQUE: XR knee complete RT view(s) obtained. FINDINGS: 3 views right knee. Joint spaces preserved. No joint effusion is evident. In the AP projection there is some lucency at the medial metaphysis. Correlate for avulsion pain at t his region. IMPRESSION: 1. Small lucency could indicate an underlying avulsion from the medial metaphyseal right femur. Baldemar elate with location of the patient's pain. CT could be performed if additional evaluation of benefit. 2. Right knee otherwise appears unremarkable [facility], , 06/06/2024 2:27 PM
--- NOTE | 2024-06-06 16:14 | CT ---
EXAMINATION TYPE: CT knee RT wo con DATE OF EXAM: 06/06/2024 3:40 PM COMPARISON: Plain films same date CLINICAL INDICATION: Female, 59 years old with history of Trauma, pain, RT knee pain after trip and f all over dog. abnormal XR, Lung cancer screening, History of tobacco use. TECHNIQUE: Contrast used: mL of , (none if empty) Oral contrast used: (none if empty) Axial images 3 mm thick sections. Reconstructed images in the coronal and sagittal plane. Three-D rec onstructed images were obtained. FINDINGS: There is a subtle lucency within the proximal portion distal metaphysis medial femoral condyle. Fract ure line extends into the medial femoral condyle. Nondisplaced and/or compression fracture at this lo cation may be present. Correlate with the mechanism of injury. No articular surface involvement is evident. Fracture fragment appears nondisplaced. Fracture fragment size is estimated at 1.6 AP x1.7 craniocaudal by 0.8 cm in depth. IMPRESSION: 1. MEDIAL CONDYLAR FRACTURE RIGHT KNEE [facility], , 06/06/2024 4:12 PM
[2024-06-06 17:02] VITALS: BP 126/76; PULSE 80
== END 2024-06-06 17:03 | disposition home or self-care (01) ==
LOC: EC 12:28
DX: S72.91XA Unspecified fracture of right femur, initial encounter for closed fracture (principal); F17.200 Nicotine dependence, unspecified, uncomplicated; Z88.1 Allergy status to other antibiotic agents; Z88.2 Allergy status to sulfonamides; Z88.5 Allergy status to narcotic agent; Z88.7 Allergy status to serum and vaccine; Z88.8 Allergy status to other drugs, medicaments and biological substances; Z91.030 Bee allergy status; W01.0XXA Fall on same level from slipping, tripping and stumbling without subsequent striking against object, initial encounter; Y93.K1 Activity, walking an animal
CPT/HCPCS: 73562; 73700; 99284; L1830; J1885; J1171

== ENCOUNTER 2025-01-25 12:57 | Emergency (ER) | payer MEDICARE ==
[2025-01-25 13:18] VITALS: TEMP 97.6
--- NOTE | 2025-01-25 13:58 | XR ---
EXAMINATION TYPE: XR tibia fibula RT DATE OF EXAM: 01/25/2025 1:37 PM COMPARISON: None CLINICAL INDICATION: Female, 59 years old with history of fall pain mid calf post fall; PHH, pain TECHNIQUE: XR tibia fibula RT; examined in AP and lateral projections. FINDINGS: No evidence of any acute osseous pathology, joint dislocation, or soft tissue swelling is n oted. IMPRESSION: No evidence of acute fracture. [facility], , 01/25/2025 1:55 PM
--- NOTE | 2025-01-25 14:37 | ED ---
General Adult HPI - General Chief complaint: Extremity Injury, Lower Stated complaint: fall, R leg injury Time Seen by Provider: 01/25/25 13:43 Source: patient, family, RN notes reviewed Mode of arrival: wheelchair Limitations: no limitations - History of Present Illness Initial comments: 59-year-old female presents to the emergency department for evaluation of right leg injury. Patient states that she was walking on the stairs when she tripped and fell. She reports that she fell down 2 stairs. She reports that she twisted her right leg. She denies any other injury. Denies head injury. She states that she has pain with ambulation. Pain is mostly in the lateral right leg. - Related Data Home Medications Medication Instructions Recorded Confirmed Hydrocortisone [Cortef] 10 mg PO TID@0700,1100,1500 03/22/22 05/09/23 Midodrine [ProAmatine] 5 mg PO TID@0700,1100,1500 03/22/22 05/09/23 Escitalopram [Lexapro] 20 mg PO DAILY 04/09/22 05/09/23 Omeprazole 20 mg PO BID 08/09/22 05/09/23 Rimegepant Sulfate [Nurtec Odt] 75 mg PO DAILY PRN 08/09/22 05/09/23 Ondansetron [Zofran] 4 mg PO DAILY PRN 09/05/22 05/09/23 busPIRone HCL 15 mg PO BID 09/05/22 05/09/23 traMADol HCL [Ultram] 50 mg PO BID 12/22/22 05/09/23 Albuterol Inhaler [Ventolin Hfa 1 - 2 puff INHALATION Q6H PRN 05/02/23 05/09/23 Inhaler] rOPINIRole HCL [Requip] 0.25 mg PO 1900 05/02/23 05/09/23 clonazePAM [KlonoPIN] 0.5 mg PO DAILY 05/09/23 05/09/23 Previous Rx's Medication Instructions Recorded Cyclobenzaprine [Flexeril] 5 mg PO TID #40 tablet 05/09/23 Sennosides/Docusate Sodium [Senna 1 each PO DAILY PRN #20 tab 05/09/23 Plus 8.6-50 mg Tablet] metroNIDAZOLE [Flagyl] 500 mg PO TID #15 tab 05/09/23 oxyCODONE-APAP 7.5-325MG [Percocet 1 tab PO Q6HR PRN #42 tab 05/09/23 7.5-325 mg] Ketorolac [Toradol] 10 mg PO Q8HR #15 tab 06/06/24 Allergies Allergy/AdvReac Type Severity Reaction Status Date / Time bee venom protein (honey bee) Allergy Anaphylaxis Verified 06/06/24 12:37 COVID-19 vaccine, mRNA, Allergy Anaphylaxis Verified 06/06/24 12:37 [id number], [From Moderna COVID-19 (6-11yr)(EUA)] cephalexin monohydrate AdvReac Swelling Verified 06/06/24 12:37 [From Keflex] codeine AdvReac Itching Verified 06/06/24 12:37 erythromycin base AdvReac Swelling Verified 06/06/24 12:37 [Erythromycin Base] Sulfa (Sulfonamide AdvReac Anaphylaxis Verified 06/06/24 12:37 Antibiotics) Review of Systems ROS Statement: Those systems with pertinent positive or pertinent negative responses have been documented in the HPI. ROS Other: All systems not noted in ROS Statement are negative. Past Medical History Past Medical History: Cancer, COPD, Eye Disorder, GERD/Reflux, Hyperlipidemia, Osteoarthritis (OA), Rheumatoid Arthritis (RA) Additional Past Medical History / Comment(s): low blood pressure, migraines, adrenal insufficiency takes cortef, hx. pituitary tumor although no evidence recently of it, acromegaly r/t growth hormone, hx. skin cancer. Addisons disease History of Any Multi-Drug Resistant Organisms: None Reported Past Surgical History: Appendectomy, Cholecystectomy, Hysterectomy, Orthopedic Surgery Additional Past Surgical History / Comment(s): Claudio Fundoplication, foreign object removed from foot, left hip surgery 04/2023 Past Anesthesia/Blood Transfusion Reactions: Previous Problems w/ Anesthesia, Motion Sickness, Postoperative Nausea & Vomiting (PONV) Additional Past Anesthesia/Blood Transfusion Reaction / Comment(s): no hx blood transfusion, states was told during hyst. in 1988 they "had to use the paddles", she's not sure what happened, her nor her family were told anything, she has had surg. since w/no problem she's aware of Past Psychological History: Anxiety, Depression Smoking Status: Current every day smoker Past Alcohol Use History: None Reported Past Drug Use History: None Reported - Past Family History Mother Family Medical History: No Reported History Father Family Medical History: No Reported History Additional Family Medical History / Comment(s): father's dad had colon CA General Exam Limitations: no limitations General appearance: alert, in no apparent distress Head exam: Present: atraumatic, normocephalic, normal inspection Eye exam: Present: normal appearance, PERRL, EOMI. Absent: scleral icterus, conjunctival injection, periorbital swelling Respiratory exam: Present: normal lung sounds bilaterally. Absent: respiratory distress, wheezes, rales, rhonchi, stridor Cardiovascular Exam: Present: regular rate, normal rhythm, normal heart sounds. Absent: systolic murmur, diastolic murmur, rubs, gallop, clicks Extremities exam: Present: full ROM, tenderness (Tenderness to the lateral right knee), normal capillary refill. Absent: pedal edema, joint swelling, calf t enderness Neurological exam: Present: alert, oriented X3 Psychiatric exam: Present: normal affect, normal mood Skin exam: Present: warm, dry, intact, normal color. Absent: rash Course Vital Signs 01/25/25 01/25/25 01/25/25 13:15 15:10 16:23 Temperature 97.6 F Pulse Rate 94 84 72 Respiratory 20 16 18 Rate Blood Pressure 125/83 132/91 132/80 O2 Sat by Pulse 99 96 100 Oximetry Medical Decision Making - Medical Decision Making Was pt. sent in by a medical professional or institution (, PA, RODENT EXTERMINATOR, urgent care, hospital, or snf...) When possible be specific @ -No Did you speak to anyone other than the patient for history (EMS, parent, family, police, friend...)? What history was obtained from this source @ -No Did you review nursing and triage notes (agree or disagree)? Why? @ -I reviewed and agree with nursing and triage notes Were old charts reviewed (outside hosp., previous admission, EMS record, old EKG, old radiological studies, urgent care reports/EKG's, snf records)? Report findings @ -No old charts were reviewed Differential Diagnosis (chest pain, altered mental status, abdominal pain women, abdominal pain men, vaginal bleeding, weakness, fever, dyspnea, syncope, headache, dizziness, GI bleed, back pain, seizure, CVA, palpatations, mental health, musculoskeletal)? @ -Differential Musculoskeletal Muscular strain, contusion, ligament sprain, fracture, arthritis, septic arthritis, bursitis, cellulitis, muscle spasm, nerve compression, DVT, arterial occlusion, herpes zoster, electrolyte abnormality, tumor.... This is not meant to be in all inclusive list EKG interpreted by me (3pts min.). @ -None X-rays interpreted by me (1pt min.). @ -X-ray of the tib-fib reveals no acute process X-ray of the right knee reveals no evidence of acute fracture or dislocation CT interpreted by me (1pt min.). @ -None done U/S interpreted by me (1pt. min.). @ -None done What testing was considered but not performed or refused? (CT, X-rays, U/S, labs)? Why? @ -None What meds were considered but not given or refused? Why? @ -None Did you discuss the management of the patient with other professionals (professionals i.e. , PA, RODENT EXTERMINATOR, lab, RT, psych nurse, social services analyst, lockstitch lining setter, teacher, search and rescue officer, case coordinator)? Give summary @ -No Was smoking cessation discussed for >3mins.? @ -No Was critical care preformed (if so, how long)? @ -No Were there social determinants of health that impacted care today? How? (Homelessness, low income, unemployed, alcoholism, drug addiction, transportation, low edu. Level, literacy, decrease access to med. care, nursing home, rehab)? @ -No Was there de-escalation of care discussed even if they declined (Discuss DNR or withdrawal of care, Hospice)? DNR status @ -No What co-morbidities impacted this encounter? (DM, HTN, Smoking, COPD, CAD, Cancer, CVA, ARF, Chemo, Hep., AIDS, mental health diagnosis, sleep apnea, morbid obesity)? @ -None Was patient admitted / discharged? Hospital course, mention meds given and route, prescriptions, significant lab abnormalities, going to OR and other pertinent info. @ -[Discharge. Patient presented emergency department for evaluation of leg and knee pain following a fall. She denies any other injuries. Denies head injuries, blood thinners. X-rays obtained revealing no evidence of acute process. The patient will be placed in a knee immobilizer and provided crutch es. She is advised to follow-up with her primary care provider and utilize symptomatic treatment at this time. Patient stable at time of discharge. Case discussed with Dr. Pettit. Undiagnosed new problem with uncertain prognosis? @ -No Drug Therapy requiring intensive monitoring for toxicity (Heparin, Nitro, Insulin, Cardizem)? @ -No Were any procedures done? @ -No Diagnosis/symptom? @ -Knee sprain Acute, or Chronic, or Acute on Chronic? @ -Acute Uncomplicated (without systemic symptoms) or Complicated (systemic symptoms)? @ -Uncomplicated Side effects of treatment? @ -No Exacerbation, Progression, or Severe Exacerbation? @ -No Poses a threat to life or bodily function? How? (Chest pain, USA, [place], pneumonia, PE, COPD, DKA, ARF, appy, cholecystitis, CVA, Diverticulitis, Homicidal, Suicidal, threat to staff... and all critical care pts) @ -No Disposition Clinical Impression: Leg sprain Disposition: HOME SELF-CARE Condition: Stable Instructions (If sedation given, give patient instructions): Knee Sprain (ED) Additional Instructions: Please follow up with Dr. Duran. Return to the emergency department for new or worsening symptoms. Is patient prescribed a controlled substance at d/c from ED?: No Referrals: Bro Cristina MD [Primary Care Provider] - 1-2 days
[2025-01-25] MEDS: KETOROLAC 15 MG/ML 1 ML VIAL IM STA (14:41)
--- NOTE | 2025-01-25 15:40 | XR ---
EXAMINATION TYPE: XR knee complete RT DATE OF EXAM: 01/25/2025 3:21 PM COMPARISON: None CLINICAL INDICATION: Female, 59 years old with history of pain; PHH, pain TECHNIQUE: XR knee complete RT 3 views submitted. FINDINGS: No evidence of any acute osseous pathology or soft tissue swelling. Tricompartmental oste ophyte formation involving the femoral condyles, tibial plateau and patella. Mild joint space narrowi ng. IMPRESSION: 1. No acute osseous pathology. 2. Mild tricompartmental osteoarthritic changes. [facility], , 01/25/2025 3:38 PM
[2025-01-25 16:25] VITALS: BP 132/80; PULSE 72; RESP 18
== END 2025-01-25 16:24 | disposition home or self-care (01) ==
LOC: EC 12:57
DX: S83.91XA Sprain of unspecified site of right knee, initial encounter (principal); F17.200 Nicotine dependence, unspecified, uncomplicated; Z88.5 Allergy status to narcotic agent; Z88.2 Allergy status to sulfonamides; Z88.1 Allergy status to other antibiotic agents; Z91.030 Bee allergy status; Z88.7 Allergy status to serum and vaccine; W10.9XXA Fall (on) (from) unspecified stairs and steps, initial encounter
CPT/HCPCS: 73590; 73562; 99283; 96372; J1885